=== PATIENT | female | born 1980 | race Caucasian/White ===

== ENCOUNTER 2020-08-31 15:25 | Outpatient (CLI) | payer OTHER, SELFPAY ==
--- NOTE | ~2020-08-31 | MM_ITS ---
EXAMINATION: MM screening arlene BI w antolin HISTORY: Screening TECHNIQUE: Craniocaudal and mediolateral oblique 3-D tomosynthesis images were obtained and synthetic 2-D images were generated. CAD analysis was submitted and interpreted. COMPARISON: 07/16/2019 BREAST PARENCHYMAL COMPOSITION: There are scattered areas of fibroglandular density. FINDINGS: There is no evidence of suspicious mass, calcification, or architectural distortion to sugg est malignancy in either breast. There has been no suspicious interval change. IMPRESSION: 1. No mammographic evidence of malignancy. 2. Recommend routine screening mammography in one year. BI-RADS Category 1: Negative Reviewed, dictated and finalized at location A. N GRADER
== END 2020-08-31 15:26 | disposition home or self-care (01) ==
LOC: ANHIMG 15:27
PROVIDERS: PCP Nurse Practitioner Family; Visit Provider Nurse Practitioner Family
DX: Z12.31 Encounter for screening mammogram for malignant neoplasm of breast (principal)
CPT/HCPCS: 77063; 77067

== ENCOUNTER 2021-09-27 10:14 | Outpatient (CLI) | payer OTHER, SELFPAY ==
--- NOTE | ~2021-09-27 | MM_ITS ---
EXAMINATION: MM screening arlene BI w antolin HISTORY: Screening mammogram TECHNIQUE: Craniocaudal and mediolateral oblique 3-D tomosynthesis images were obtained and synthetic 2-D images were generated. CAD analysis was submitted and interpreted. COMPARISON: 08/2020, 07/16/2019 bilateral screening mammogram examinations BREAST PARENCHYMAL COMPOSITION: There are scattered areas of fibroglandular density. FINDINGS: There is no evidence of suspicious mass, calcification, or architectural distortion to sugg est malignancy in either breast. There has been no suspicious interval change. IMPRESSION: 1. No mammographic evidence of malignancy. 2. Recommend routine screening mammography in one year. BI-RADS Category 1: Negative Reviewed, dictated and finalized at location A. O NEWS EDITOR
== END 2021-09-27 10:15 | disposition home or self-care (01) ==
PROVIDERS: PCP Family Medicine; Visit Provider Nurse Practitioner Obstetrics & Gynecology
DX: Z12.31 Encounter for screening mammogram for malignant neoplasm of breast (principal)
CPT/HCPCS: 77063; 77067

== ENCOUNTER 2021-10-11 11:46 | Outpatient (CLI) | payer OTHER, SELFPAY ==
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
--- NOTE | ~2021-10-11 | XR_ITS ---
LUMBAR SPINE INDICATION: Low back pain TECHNIQUE: 6 views lumbar spine COMPARISON: None FINDINGS: No fracture, subluxation or dislocation. No evidence for spondylolysis or spondylolisthesi s. Vertebral bodies and disk spaces are preserved. IMPRESSION: 1: No significant abnormality of the lumbar spine identified. Reviewed, dictated and finalized at location A. T OFFICER
== END 2021-10-11 11:47 | disposition home or self-care (01) ==
LOC: ANHIMG 11:51
PROVIDERS: PCP Family Medicine; Visit Provider Nurse Practitioner
DX: M47.812 Spondylosis without myelopathy or radiculopathy, cervical region (principal)
CPT/HCPCS: 72050; 72110

== ENCOUNTER 2021-11-08 14:30 | Outpatient (RCR) | payer OTHER, SELFPAY ==
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
--- NOTE | 2021-11-08 15:24 | PTOPEVAL ---
PHYSICAL THERAPY DISCHARGE REPORT 11-08-21 Refer to the clinical summary below, for her status today, compared to the initial evaluation. The goals were achieved for strength and education. Rachelle requests discharge from PT services due to personal issues, her mother is ill and feels she cannot focus on therapy at this time. She wants to do her exercises at home for awhile and if needs therapy again, she will obtain a new order to resume therapy. Thank you for referring Rachelle Hough to [facility].? Please review, sign, date and return this Discharge report EMMA. I agree with and certify that the following plan of care is medically necessary. Referring Physician Date Attending Provider: Sameera Ennis NP Document 11/08/21 14:30 VEGA (Rec: 11/08/21 15:24 VEGA [id number]) Assessment Status Discharge Subjective Information Rachelle reports: doing home Query Text:As Reported By Patient/ exercises without any problems Family , feel they are helping her get stronger; want to stop PT now and restart later if needed; her mom is ill and in ICU- very ill and on the ventilator. Wants to discharge PT; Pain Assessment Timing of Pain Assessment Timing of Pain Assessment Assessment Pain Scale Pain Scale Used Numeric (1 - 10) Self Report Pain Assessment Bilateral Back Reported Pain Level 0 Radicular Pain Location R and L low back into R toes numb Pain Frequency Chronic,Intermittent Other Pain Description some muscle soreness from new exercises; spasms in back and random stabs Lowest Pain Intensity 0 Greatest Pain Intensity 6 Pain Aggravating Factors Exercise/Activity,Walking, Weight Bearing/Standing Other Pain Aggravating Factors stand/walk 2 hours Pain Score Pain Score 0: Self Report Interventions Used Interventions Used By Clinicians Education,Exercise Pain Relief Interventions Used By Position Change Patient Other Alleviating Interventions hot shower, heating pad; discussed stretching for spasm relief Lower Extremity Range of Motion General Lower Extremity Range of Motion Gross Lower Extremity Range of Motion supine piriformis stretch with Comments hip and knee flexion > 90' R = L flexibility; Lower Extremity Muscle Strength Testing General Lower Extremity Strength Gross Lower Extremity Strength - B UE lift 20# box floor/ waist 3x with correct technique; no increase in back
== END 2021-11-09 08:22 | disposition home or self-care (01) ==
LOC: ANHPT 14:30
PROVIDERS: PCP Family Medicine; Visit Provider Nurse Practitioner
DX: M54.50 Low back pain, unspecified (principal)
CPT/HCPCS: 97110; 97161

== ENCOUNTER → 2022-02-20 16:29 | Outpatient (CLI) | payer OTHER, SELFPAY ==
--- NOTE | ~2022-02-20 | XR_ITS ---
XR cervical spine min 6V DATE: 02/20/2022 16:46 INDICATION: Bilateral neck pain TECHNIQUE: AP, open-mouth, bilateral oblique views. Flexion and extension lateral views. COMPARISON: 10/11/2021 cervical spine FINDINGS: There is straightening and slight reversal of cervical curvature. There is no instability on flexion or extension. No fracture or dislocation or locked facet or prevertebral soft tissue swelling. C1 and C2 are normal ly aligned and the odontoid process is intact. There is no bony encroachment upon the neural foramina . Cervical interspaces are well preserved. IMPRESSION: Straightening and mild reversal; otherwise negative Reviewed, dictated and finalized at location A.
== END ==
PROVIDERS: PCP Nurse Practitioner; Visit Provider Nurse Practitioner
DX: M54.2 Cervicalgia (principal)
CPT/HCPCS: 72052

== ENCOUNTER 2022-05-30 14:20 | Outpatient (CLI) | payer OTHER, SELFPAY ==
--- NOTE | ~2022-05-30 | XR_ITS ---
XR foot LT min 3V DATE: 05/30/2022 14:35 INDICATION: Left foot pain, mid metatarsal area; injury one week ago. TECHNIQUE: 4 views COMPARISON: None FINDINGS: Mild osteoarthritis at the first metatarsophalangeal joint. No fracture or dislocation, periosteal reaction or bone destruction of the left foot. IMPRESSION: No fracture is detected Reviewed, dictated and finalized at location B. IMPRESSION: No fracture is detected
== END 2022-05-30 14:21 | disposition home or self-care (01) ==
PROVIDERS: PCP Family Medicine; Visit Provider Nurse Practitioner
DX: M19.072 Primary osteoarthritis, left ankle and foot (principal)
CPT/HCPCS: 73630

== ENCOUNTER 2023-07-15 15:04 | Outpatient (CLI) | payer OTHER, SELFPAY ==
--- NOTE | ~2023-07-15 | MM_ITS ---
EXAMINATION: MM screening arlene BI w antolin HISTORY: Screening TECHNIQUE: Craniocaudal and mediolateral oblique 3-D tomosynthesis images were obtained and synthetic 2-D images were generated. CAD analysis was submitted and interpreted. COMPARISON: Comparison to multiple prior studies sequentially, with oldest reviewed study dated 07/16. BREAST PARENCHYMAL COMPOSITION: Breast composed of scattered areas of fibroglandular density FINDINGS: There is no evidence of suspicious mass, calcification, or architectural distortion to sugg est malignancy in either breast. There has been no suspicious interval change. IMPRESSION: 1. No mammographic evidence of malignancy. 2. Recommend routine screening mammography in one year. BI-RADS Category 1: Negative Reviewed, dictated and finalized at location A.
== END 2023-07-15 15:05 | disposition home or self-care (01) ==
LOC: ANHIMG 15:07
PROVIDERS: PCP Family Medicine; Visit Provider Nurse Practitioner Obstetrics & Gynecology
DX: Z12.31 Encounter for screening mammogram for malignant neoplasm of breast (principal)
CPT/HCPCS: 77063; 77067

== ENCOUNTER 2023-09-23 12:54 | Outpatient (CLI) | payer OTHER, SELFPAY ==
--- NOTE | ~2023-09-23 | CT_ITS ---
EXAMINATION: CT lumbar spine wo con DATE: 09/23/2023 13:19 INDICATION: Sciatica, unspecified side. TECHNIQUE: Computed tomography (CT) of the lumbar spine was performed without intravenous contrast. A utomated exposure control and iterative reconstruction technique were employed. The dose-length produ ct was 1229.68 mGy-cm. COMPARISON: Lumbar spine MRI 10/11/2010 FINDINGS: Bone alignment is normal. Vertebral body heights and intervertebral disc heights are normal . The following disc levels are specifically discussed: L1-L2: The disc does not extend beyond the endplate margin. There is severe bilateral facet joint ost eoarthritis. There is no neural foraminal stenosis. There is no central canal stenosis. L2-L3: The disc does not extend beyond the endplate margin. There is mild bilateral facet joint osteo arthritis. There is no neural foraminal stenosis. There is no central canal stenosis. L3-L4: The disc does not extend beyond the endplate margin. There is mild right and moderate left fac et joint osteoarthritis. There is no neural foraminal stenosis. There is no central canal stenosis. L4-L5: The disc is bulging. There is severe bilateral facet joint osteoarthritis. There is mild left neural foraminal stenosis. There is no central canal stenosis. L5-S1: The disc does not extend beyond the endplate margin. There is severe bilateral facet joint ost eoarthritis. There is no neural foraminal stenosis. There is no central canal stenosis. IMPRESSION: 1. Mild lumbar spondylosis. Reviewed, dictated and finalized at location A. UCT ENGINEERING MANAGER IMPRESSION: 1. Mild lumbar spondylosis.
== END 2023-09-23 12:55 | disposition home or self-care (01) ==
PROVIDERS: PCP Family Medicine; Visit Provider Nurse Practitioner Family
DX: G89.29 Other chronic pain (principal); M54.40 Lumbago with sciatica, unspecified side; M43.06 Spondylolysis, lumbar region
CPT/HCPCS: 72131

== ENCOUNTER 2024-06-30 12:32 | Outpatient (CLI) | payer OTHER, SELFPAY ==
--- NOTE | 2024-06-30 13:04 | ECG_ITS ---
Test Date: 2024-06-30 13:13:11 Measurements Intervals [place] Rate: 62 P: 58 SC: 132 QRS: 68 QRSD: 94 T: 70 QT: 402 QTc: 410 Interpretive Statements SINUS RHYTHM LOW QRS VOLTAGE IN PRECORDIAL LEADS CANNOT R/O SEPTAL INFARCT, AGE INDETERMINATE BASELINE ARTIFACT- I, II, III, AVR, AVL, AVF, V4-V6 ABNORMAL ECG No previous ECG available for comparison Electronically Signed On 06-30-2024 13:18:07 CDT by Jerry Durham D.O.
== END 2024-06-30 12:33 | disposition home or self-care (01) ==
LOC: ANHCARD 12:35
PROVIDERS: PCP Family Medicine; Visit Provider Family Medicine
DX: R07.9 Chest pain, unspecified (principal); R94.31 Abnormal electrocardiogram [ECG] [EKG]
CPT/HCPCS: 93005

== ENCOUNTER 2024-07-29 00:19 | Day surgery (SDC) | payer OTHER, SELFPAY ==
[2024-06-23 13:54] VITALS: BMI 36.6
--- NOTE | 2024-06-24 11:30 | PC.NURSE ---
Patient complained of having trouble during previous preps for procedure having nausea and vomiting and not able to keep prep down. Spoke with Dr. Sauceda and ciro to order Ondansetron for nausea during prep.
[2024-07-21 16:05] VITALS: BMI 36.6
--- NOTE | 2024-07-27 08:29 | SUR.PREOP ---
Notified patient that she did receive cardiac clearance. Patient should arrive on July 29 at 0600 with procedure time at 0730. Patient requesting to take an extra dose of Xanax the morning of her procedure. Patient advised to take the prescribed amount of medication from her primary doctor. Patient has started two day prep for procedure. Patient refusing to take dulcolax tablets and magnesium citrate, but states she will take a bottle and a half of miralax today and tomorrow and remain clear liquids today and tomorrow. Patient advised that if her stools are not clear the morning of the procedure we will have to cancel the procedure. Patient extremely anxious about IV stick, will attempt to schedule IV ultrasound for procedure.
[2024-07-29 06:12] VITALS: BP 142/96; PULSE 80; RESP 18; TEMP 36.2; O2SAT 98
[2024-07-29 06:37] VITALS: BMI 36.9
[2024-07-29 06:48] LABS: BEDSIDEPREGUCG Negative (Negative)
--- NOTE | 2024-07-29 06:52 | WPDANESEPPF ---
Anes - Initial Pre Proc Eval Procedure: Operation Date: 07/29/24 07:30 Proposed Procedures p Colonoscopy - Beau Thomas MD Date/Time: 07/29/24 06:52 Surgeon: Beau Thomas MD Pre Op Diagnosis: neoplasm sceening, Diverticulosis of large intesti Patient Data Age: 44 Gender: F Height: 1.68 m Weight: 103.9 kg Last Vital Signs Temp 36.2 C L 07/29/24 06:12 Pulse 80 07/29/24 06:12 Resp 18 07/29/24 06:12 BP 142/96 H 07/29/24 06:12 Pulse Ox 98 07/29/24 06:12 O2 Del Method Room Air 07/29/24 06:12 Allergies Allergy/AdvReac Type Severity Reaction Status Date / Time codeine AdvReac Severe Anxiety Verified 07/29/24 06:27 Home Medications Medication Instructions Recorded Confirmed Type ibuprofen 200 mg tablet (Advil) 200 mg PO Q6H PRN Pain 02/20/22 07/24/24 History multivitamin (Multiple Vitamins 1 tablet PO DAILY 04/13/22 07/24/24 History tablet) famotidine 20 mg tablet (Acid 20 mg PO DAILY 04/18/23 07/24/24 History Presentation Manager (famotidine)) omega 3-dzq-agu-fish oil 1,000 mg 1 cap PO DAILY 09/04/23 07/24/24 History (120 mg-180 mg) capsule (Fish Oil) phentermine 37.5 mg tablet 37.5 mg PO DAILY #30 tabs 05/20/24 07/24/24 Rx tizanidine 2 mg tablet 2 mg PO BID PRN muscle spasticity 06/11/24 07/24/24 Rx #60 tabs hydrocortisone 2.5 % topical cream 1 applic RECTAL DAILY PRN 06/15/24 07/24/24 Rx with perineal applicator hemorrhoids #30 grams (Anusol-HC) ondansetron HCl 4 mg tablet 4 mg PO Q6H PRN Nausea #4 tabs 06/24/24 07/24/24 Rx DME BP cuff pulse ox #1 ea 07/02/24 07/24/24 Rx blood pressure test kit-large #1 ea 07/02/24 07/24/24 Rx (Quick Response BP Monitor-Large Cuff kit) buspirone 10 mg tablet 20 mg PO TID #540 tabs 07/03/24 07/29/24 Rx prednisone 50 mg tablet 50 mg PO DAILY #7 tabs 07/10/24 07/29/24 Rx ascorbate calcium (vitamin C) 500 500 mg PO DAILY 07/24/24 07/29/24 History mg tablet elderberry fruit 350 mg capsule 350 mg PO DAILY 07/24/24 07/29/24 History magnesium 250 mg tablet 500 mg PO DAILY 07/24/24 07/29/24 History mecobalamin (vitamin B12) 1,000 1,000 mcg PO DAILY 07/24/24 07/29/24 History mcg chewable tablet tamsulosin 0.4 mg capsule 0.4 mg PO DAILY PRN Urinary 07/24/24 07/29/24 History Retention alprazolam 1 mg tablet (Xanax) 1 mg PO TID PRN panic attack(s) 1 07/27/24 07/29/24 Rx month #90 tabs Laboratory Tests 07/29/24 06:46 POC Urine HCG, Qual Negative (Negative) Patient hx anesthesia problems: none Family hx anesthesia problems: none Results Review: All pre-operative results and documents have been reviewed as part of the pre-operative evaluation. [facility] Past Medical History Medical History (Updated 07/29/24 @ 06:55 by Bal Ferguson MD) Bug bite without infection Chronic bilateral low back pain with sciatica Dense breast tissue on mammogram Diverticula of colon Elevated AST (SGOT) Encounter for screening colonoscopy Hemorrhoids History of kidney stones Hyperlipidemia, unspecified Migraine headache with aura Obesity Panic disorder Rash Sciatic leg pain Slow transit constipation Snoring TMJ (dislocation of temporomandibular joint) Surgical History Surgical History (Updated 07/29/24 @ 06:55 by Bal Ferguson MD) H/O colonoscopy Family History Family History Mother Carcinoma of colon Social History Social History Social History: Caffeine-soda Smoking packs per day: 1 Smoking cigarettes per day: 20.0 Years smoked: 20 Smoking pack-years: 20.00 Smoking status: Former smoker Tobacco type: cigarettes and e-cigarettes/vaping Smoking end date: 10/28/12 Alcohol intake: never Substance use: never Substance use type: does not use Lack of Transportation: No Lack of Food: Never True Current Housing: I Have Housing Concerned About Future H
[2024-07-29] MEDS: LACTATED RINGERS 1,000 ML 150 ML IV CONT (07:00)
--- NOTE | 2024-07-29 07:24 | PM.HPGS ---
History of Present Illness History of Present Illness Consent: Risks, benefits, and alternatives have been discussed and questions answered. Patient agrees to proceed with procedure. Chief complaint: family history of colon cancer Narrative: Rachelle Hough is a 44 year old female with last colonoscopy 5 years ago, mother had colon cancer Review of Systems Review of Systems: All systems reviewed & are unremarkable except as noted in HPI and below PMFSH Past Medical History Medical History (Updated 07/29/24 @ 07:25 by Beau Thomas MD) Bug bite without infection Chronic bilateral low back pain with sciatica Dense breast tissue on mammogram Diverticula of colon Elevated AST (SGOT) Encounter for screening colonoscopy Family history of colon cancer in mother Hemorrhoids History of kidney stones Hyperlipidemia, unspecified Migraine headache with aura Obesity Panic disorder Rash Sciatic leg pain Slow transit constipation Snoring TMJ (dislocation of temporomandibular joint) Surgical History Surgical History (Updated 07/29/24 @ 06:55 by Bal Ferguson MD) H/O colonoscopy Family History Family History Mother Carcinoma of colon Social History Social History Social History: Caffeine-soda Smoking packs per day: 1 Smoking cigarettes per day: 20.0 Years smoked: 20 Smoking pack-years: 20.00 Smoking status: Former smoker Tobacco type: cigarettes and e-cigarettes/vaping Smoking end date: 10/28/12 Alcohol intake: never Substance use: never Substance use type: does not use Lack of Transportation: No Lack of Food: Never True Current Housing: I Have Housing Concerned About Future Housing: No Difficulty Paying Gas/Electric Bills: No Difficulty Paying for Meds: No Currently Unemployed: No Education: Bachelor's Degree Difficulty w/ Childcare or Family Care: No Living arrangements: alone Spiritual care concerns: No Meds Home Medications and Allergies Home Medications Medication Instructions Recorded Confirmed Type ibuprofen 200 mg tablet (Advil) 200 mg PO Q6H PRN Pain 02/20/22 07/24/24 History multivitamin (Multiple Vitamins 1 tablet PO DAILY 04/13/22 07/24/24 History tablet) famotidine 20 mg tablet (Acid 20 mg PO DAILY 04/18/23 07/24/24 History Clipper Machine (famotidine)) omega 5-lkh-mdf-fish oil 1,000 mg 1 cap PO DAILY 09/04/23 07/24/24 History (120 mg-180 mg) capsule (Fish Oil) phentermine 37.5 mg tablet 37.5 mg PO DAILY #30 tabs 05/20/24 07/24/24 Rx tizanidine 2 mg tablet 2 mg PO BID PRN muscle spasticity 06/11/24 07/24/24 Rx #60 tabs hydrocortisone 2.5 % topical cream 1 applic RECTAL DAILY PRN 06/15/24 07/24/24 Rx with perineal applicator hemorrhoids #30 grams (Anusol-HC) ondansetron HCl 4 mg tablet 4 mg PO Q6H PRN Nausea #4 tabs 06/24/24 07/24/24 Rx DME BP cuff pulse ox #1 ea 07/02/24 07/24/24 Rx blood pressure test kit-large #1 ea 07/02/24 07/24/24 Rx (Quick Response BP Monitor-Large Cuff kit) buspirone 10 mg tablet 20 mg PO TID #540 tabs 07/03/24 07/29/24 Rx prednisone 50 mg tablet 50 mg PO DAILY #7 tabs 07/10/24 07/29/24 Rx ascorbate calcium (vitamin C) 500 500 mg PO DAILY 07/24/24 07/29/24 History mg tablet elderberry fruit 350 mg capsule 350 mg PO DAILY 07/24/24 07/29/24 History magnesium 250 mg tablet 500 mg PO DAILY 07/24/24 07/29/24 History mecobalamin (vitamin B12) 1,000 1,000 mcg PO DAILY 07/24/24 07/29/24 History mcg chewable tablet tamsulosin 0.4 mg capsule 0.4 mg PO DAILY PRN Urinary 07/24/24 07/29/24 History Retention alprazolam 1 mg tablet (Xanax) 1 mg PO TID PRN panic attack(s) 1 07/27/24 07/29/24 Rx month #90 tabs Allergies Allergy/AdvReac Type Severity Reaction Status Date / Time codeine AdvReac Severe Anxiety Verified 07/29/24 06:27 Vital Signs Vital Signs - 24 hr 07/29/24
[2024-07-29 07:50] VITALS: BP 125/62; PULSE 78; RESP 18; O2SAT 99
[2024-07-29 08:00] VITALS: BP 127/67; PULSE 76; RESP 16; O2SAT 99
[2024-07-29 08:10] VITALS: BP 127/85; PULSE 74; RESP 15; O2SAT 98
== END 2024-07-29 08:15 | disposition home or self-care (01) ==
PROVIDERS: Anesthesiology; PCP Nurse Practitioner Family; Referring Provider Nurse Practitioner Family; Visit Provider Internal Medicine Gastroenterology
PROC: 0DJD8ZZ Inspection of Lower Intestinal Tract, Via Natural or Artificial Opening Endoscopic (ICD-10-PCS; CPT 45378; principal; 2024-07-29 07:30)
DX: Z12.11 Encounter for screening for malignant neoplasm of colon (principal); D12.2 Benign neoplasm of ascending colon; K64.8 Other hemorrhoids; K57.30 Diverticulosis of large intestine without perforation or abscess without bleeding; E78.5 Hyperlipidemia, unspecified; F41.0 Panic disorder [episodic paroxysmal anxiety]; G89.29 Other chronic pain; M54.42 Lumbago with sciatica, left side; M54.41 Lumbago with sciatica, right side; E66.9 Obesity, unspecified; Z68.37 Body mass index [BMI] 37.0-37.9, adult; Z79.1 Long term (current) use of non-steroidal anti-inflammatories (NSAID); Z79.52 Long term (current) use of systemic steroids; Z87.891 Personal history of nicotine dependence; Z87.442 Personal history of urinary calculi; Z80.0 Family history of malignant neoplasm of digestive organs
CPT/HCPCS: 45380; 88305; J7120

== ENCOUNTER 2024-08-24 15:09 | Outpatient (CLI) | payer OTHER, SELFPAY ==
--- NOTE | ~2024-08-24 | MM_ITS ---
EXAMINATION: MM screening arlene BI w antolin HISTORY: Screening mammogram TECHNIQUE: Craniocaudal and mediolateral oblique 3-D tomosynthesis images were obtained and synthetic 2-D images were generated. CAD analysis was submitted and interpreted. COMPARISON: 07/15/2023, 09/27/2021, 08/31/2020 BREAST PARENCHYMAL COMPOSITION:Not Dense. There are scattered areas of fibroglandular density. FINDINGS: Probable developing 1 cm ovoid mass at the upper, outer left breast. Stable parenchymal valentin earance of the right breast. No suspicious microcalcifications. IMPRESSION: Probable developing 1 cm ovoid mass at the upper, outer left breast. Spot compression views and ultr asound are recommended for further evaluation. BI-RADS Category 0: Incomplete: Needs additional imaging evaluation. Reviewed, dictated and finalized at [facility]. IMPRESSION: Probable developing 1 cm ovoid mass at the upper, outer left breast. Spot comp ression views and ultrasound are recommended for further evaluation. BI-RADS Category 0: Incomplete: Needs additional imaging evaluation.
== END 2024-08-24 15:10 | disposition home or self-care (01) ==
LOC: ANHIMG 15:10
PROVIDERS: PCP Family Medicine; Visit Provider Nurse Practitioner Family
DX: Z12.31 Encounter for screening mammogram for malignant neoplasm of breast (principal); N63.21 Unspecified lump in the left breast, upper outer quadrant
CPT/HCPCS: 77063; 77067

== ENCOUNTER 2024-08-25 07:17 | Outpatient (CLI) | payer OTHER, SELFPAY ==
--- NOTE | 2024-08-25 07:26 | EST_ITS ---
Patient Info Name: Rachelle Hough Age: 44 years : 1980 Gender: Female Ht: 66 in Wt: 237 lbs BSA: 2.29 m2 HR: 65 bpm BP: 127 / 87 mmHg Exam Date: 08/25/2024 9:19 AM Exam Location: Echo Lab Patient Status: Outpatient Admit Date: 08/25/2024 Staff Ordering Physician: Jerry Monique DO Attending Provider: DR. MONIQUE Exercise Technologist: Katherine Grey [facility] Exercise Physician: Jerry Monique DO Exam Type: CA stress test treadmill Study Info A treadmill exercise stress test was performed. Summary 1. 1. Negative Marcelino exercise stress test for ischemic ST changes by ECG criteria. 2. 2. Reduced functional capacity, achieving 8.9 METs of workload. 3. 3. Hypertensive response to exercise. 4. 4. Appropriate HR response to exercise. 5. 5. Appropriate HR recovery at 1 minute post exercise. 6. 6. No imaging with stress testing. 7. 7. Patient informed of the above results. Protocol: Marcelino Stress ECG Details Stage: REST Duration (min): 6 min : 3 sec Speed (mph): 0.0 Grade (%): 0 HR (bpm): 62 SBP (mmHg): 127 DBP (mmHg): 87 METS: --- Stage: REST Duration (min): 10 min : 24 sec Speed (mph): 0.0 Grade (%): 0 HR (bpm): 76 SBP (mmHg): 127 DBP (mmHg): 87 METS: --- Stage: STAGE 1 Duration (min): 1 min : 0 sec Speed (mph): 1.7 Grade (%): 10 HR (bpm): 111 SBP (mmHg): 127 DBP (mmHg): 87 METS: --- Stage: STAGE 1 Duration (min): 2 min : 0 sec Speed (mph): 1.7 Grade (%): 10 HR (bpm): 116 SBP (mmHg): 127 DBP (mmHg): 87 METS: --- Stage: STAGE 1 Duration (min): 3 min : 0 sec Speed (mph): 1.7 Grade (%): 10 HR (bpm): 117 SBP (mmHg): 178 DBP (mmHg): 94 METS: --- Stage: STAGE 2 Duration (min): 1 min : 0 sec Speed (mph): 2.5 Grade (%): 12 HR (bpm): 133 SBP (mmHg): 178 DBP (mmHg): 94 METS: --- Stage: STAGE 2 Duration (min): 2 min : 0 sec Speed (mph): 2.5 Grade (%): 12 HR (bpm): 140 SBP (mmHg): 190 DBP (mmHg): 93 METS: --- Stage: STAGE 2 Duration (min): 3 min : 0 sec Speed (mph): 2.5 Grade (%): 12 HR (bpm): 142 SBP (mmHg): 190 DBP (mmHg): 93 METS: --- Stage: STAGE 3 Duration (min): 1 min : 0 sec Speed (mph): 3.4 Grade (%): 14 HR (bpm): 159 SBP (mmHg): 240 DBP (mmHg): 108 METS: --- Stage: STAGE 3 Duration (min): 1 min : 1 sec Speed (mph): 3.4 Grade (%): 14 HR (bpm): 159 SBP (mmHg): 240 DBP (mmHg): 108 METS: --- Stage: RECOVERY Duration (min): 0 min : 58 sec Speed (mph): 0.0 Grade (%): 0 HR (bpm): 135 SBP (mmHg): 240 DBP (mmHg): 108 METS: --- Stage: RECOVERY Duration (min): 1 min : 58 sec Speed (mph): 0.0 Grade (%): 0 HR (bpm): 112 SBP (mmHg): 240 DBP (mmHg): 108 METS: --- Stage: RECOVERY Duration (min): 2 min : 58 sec Speed (mph): 0.0 Grade (%): 0 HR (bpm): 101 SBP (mmHg): 204 DBP (mmHg): 106 METS: --- Stage: RECOVERY Duration (min): 3 min : 14 sec Speed (mph): 0.0 Grade (%): 0 HR (bpm): 102 SBP (mmHg): 204 DBP (mmHg): 106 METS: --- Rest HR: 76 bpm Peak HR: 160 bpm Rest Sys BP: 127 mmHg Peak Sys BP: 240 mmHg Max Pred HR: 174 bpm % Max Pred HR: 92 % Target HR: 148 bpm Max RPP: 38,400 bpm*mmHg Wright Score: 2 BP Response: Patient exhibited a hypertensive response with stress Termination Reason: Reached target heart rate or workload Cardiac Symptoms: Shortness of breath Max ST Seg Deviation: -1.00 mm Total Time: 7 min : 1 sec Rest Steiner BP: 87 mmHg Peak Steiner BP: 108 mmHg Angina Score: None Total METS: 8.9 Resting ECG Sinus rhythm, cannot r/o septal infarct, age indeterminate. Stress ECG No ST changes. Arrhythmias None. Report Signatures
--- NOTE | 2024-08-25 07:26 | ECHO_ITS ---
Patient Info Name: Rachelle Hough Age: 44 years : 1980 Gender: Female Ht: 66 in Wt: 237 lbs BSA: 2.29 m2 HR: 64 bpm BP: 151 / 99 mmHg Technical Quality: Fair Exam Date: 08/25/2024 8:19 AM Exam Location: Echo Lab Patient Status: Outpatient Admit Date: 08/25/2024 Staff Ordering Physician: Jerry Durham DO Customer Service Receptionist: Nadia Hay RDCS Attending Provider: Jerry Durham DO Referring Physician: Herminio FERNANDEZ; Exam Type: CA echo doppler color flow Study Info Indications R07.9 - Chest pain, unspecified Complete two-dimensional, color flow and Doppler transthoracic echocardiogram is performed. Strain analysis performed. Summary 1. Complete two-dimensional, color flow and Doppler transthoracic echocardiogram is performed. 2. Left ventricular chamber dimension is normal. 3. Left ventricular systolic function is normal, estimated at 60-65%. 4. The left ventricular diastolic function is normal. 5. E/e' 9 is minimally elevated. 6. Global longitudinal strain is normal at -18.7%. Left Ventricle E/e' 9 is minimally elevated. Global longitudinal strain is normal at -18.7%. Left ventricular chamber dimension is normal. Left ventricular systolic function is normal, estimated at 60-65%. The left ventricular diastolic function is normal. Right Ventricle Right ventricular chamber dimension is normal. Right ventricular systolic function is normal. Left Atria Left atrial chamber dimension is normal. Right Atria Right atrial chamber dimension is normal. Aortic Valve The aortic valve is probable trileaflet. There is no aortic valve stenosis. There is no aortic valve regurgitation. Pulmonic Valve There is no pulmonic regurgitation. Mitral Valve There is no mitral valve stenosis. There is no mitral valve regurgitation. Tricuspid Valve There is no tricuspid valve regurgitation. Pericardium/Pleural There is no pericardial effusion. Inferior Vena Cava Normal inferior vena cava with >50% collapse upon inspiration consistent with normal right atrial pressure, 5 mmHg. Aorta The aortic root size at the sinus of Valsalva is normal. Left Ventricular Outflow Tract Name Value Normal LVOT 2D LVOT Diameter 2.0 cm LVOT Doppler LVOT Peak Gradient 5 mmHg LVOT Mean Gradient 3 mmHg LVOT VTI 24 cm LVOT VTI/AV VTI Ratio 1.0 LVOT Stroke Volume 74 ml LVOT CO 4.9 l/min LVOT CI 2.1 l/min/m2 Pulmonic Valve Name Value Normal RVOT Doppler RVOT Peak Gradient 2 mmHg PV Doppler PV Peak Gradient 2 mmHg Mitral Valve Name Value Normal MV Doppler MV Decel Wake 399 cm/s2 MV PHT 62 ms MV Area (PHT) 3.6 cm2 4.0-5.0 MV Diastolic Function MV E Peak Velocity 85 cm/s MV A Peak Velocity 82 cm/s MV E/A 1.0 MV Decel Time 213 ms Tricuspid Valve Name Value Normal Estimated PAP/RSVP RA Pressure 5 mmHg <=5 Aorta Name Value Normal Ascending Aorta Ao Root Diameter (MM) 3.5 cm Ao Root Diam Index (MM) 1.5 cm/m2 Aortic Valve Name Value Normal AV Doppler AV Peak Velocity 119 cm/s AV Peak Gradient 6 mmHg AV Mean Gradient 3 mmHg AV VTI 25 cm AV Area (Cont Eq VTI) 3.0 cm2 >=3.0 AV Area (Cont Eq Moses) 2.9 cm2 AV Regurgitation 2D LVOT Area 3.1 cm2 Ventricles Name Value Normal LV Dimensions 2D/MM IVS Diastolic Thickness (2D) 0.8 cm 0.6-1.0 IVS Diastole Thickness (MM) 0.8 cm 0.6-0.9 LVID Diastole (2D) 4.7 cm 3.8-5.2 LVID Diastole (MM) 5.1 cm 3.8-5.2 LVIW Diastolic Thickness (2D) 0.9 cm 0.6-0.9 LVIW Diastolic Thickness (MM) 0.8 cm 0.6-0.9 LVID Systole (2D) 2.8 cm 2.2-3.5 LVID Systole (MM) 2.6 cm 2.2-3.5 LVOT Diameter 2.0 cm LV Mass (2D Cubed) 124.72 g 67.00-162.00 LV Mass Index (2D Cubed) 55 g/m2 43-95 Relative Wall Thickness (2D) 0.37 LV Mass (MM Cubed) 135.55 g 67.00-162.00 LV Mass Index (MM Cubed) 59 g/m2 43-95 Relative Wall Thickness (MM) 0.30 LV Fractional Shortening/Ejection Fraction 2D/MM LV Fractional Shortening (2D) 40 % 27-45 LV Fractional Shortening (MM) 48 % 27-45 LV EF (MM Teicholz) 79 % 54-74 LV EF (2D Teicholz) 70 % 54-74 LV Diastolic Volume (4C MOD) 63 ml LV EF (4C MOD) 58 % LV Diastolic Volume (2C MOD) 87 ml LV EF (2C MOD) 63 % LV Diastolic Volume (BP MOD) 74 ml 46-106 LV Diastolic Volume Index (BP MOD) 32 ml/m2 29-61 LV Systolic Volume (BP MOD) 29 ml 14-42 LV Systolic Volume Index (BP MOD) 13 ml/m2 8-24 LV EF (BP MOD) 61 % 54-74 LV Diastolic Length (4C) 8.3 cm LV Systolic Length (4C) 6.2 cm LV Stroke Volume (4C MOD) 37 ml Atria Name Value Normal LA Dimensions LA Dimension (MM) 3.7 cm 2.7-3.8 LA Volume (4C A-L) 62 ml LA Volume (BP A-L) 53 ml RA Dimensions RA Area (4C) 10.9 cm2 <=18.0 EchoPAC Name Value Normal AutoEF LVCO_BiP_Q (Ggzb8ZPM) 4.6 l/min LVEF_BiP_Q (Cjcu6YEQ) 67 % LVSV_BiP_Q (Mcez8IKL) 81 ml LVVED_BiP_Q (Ctxw1NCM) 122 ml LVVES_BiP_Q (Dikt1IIZ) 41 ml HR_4Ch_Q (Ihqb6MPR) 59 bpm LVCO_4Ch_Q (Gbmm0QMT) 4.1 l/min LVEF_4Ch_Q (Idvf3VOY) 64 % LVLd_4Ch_Q (Qrtx5SYQ) 8.3 cm LVLs_4Ch_Q (Wlpm2WKF) 6.8 cm LVSV_4Ch_Q (Texy3DYE) 70 ml LVVED_4Ch_Q (Qqur8KER) 109 ml LVVES_4Ch_Q (Hddk3AYW) 39 ml HR_2Ch_Q (Mzmy3WZX) 54 bpm LVCO_2Ch_Q (Ahuo4RGO) 5.0 l/min LVEF_2Ch_Q (Tnur7VRP) 68 % LVLd_2Ch_Q (Qgch1HUM) 8.1 cm LVLs_2Ch_Q (Bwks0ANI) 6.8 cm LVSV_2Ch_Q (Qtzn9QPW) 93 ml LVVED_2Ch_Q (Cunm4AAP) 135 ml LVVES_2Ch_Q (Wikx8KXX) 43 ml IGNACIA AA peak sys SL (AWMA) 10.0 % AAS peak sys SL (AWMA) 19.8 % AI peak sys SL (AWMA) 19.3 % AL peak sys SL (AWMA) 19.8 % AP peak sys SL (AWMA) 8.1 % peak sys SL (AWMA) 20.9 % AVC (AWMA) 450 ms BA peak sys SL (AWMA) 29.4 % BAS peak sys SL (AWMA) 18.5 % BI peak sys SL (AWMA) 23.2 % BL peak sys SL (AWMA) 21.9 % BP peak sys SL (AWMA) 18.3 % BS peak sys SL (AWMA) 8.6 % G peak SL(A2C) (AWMA) 21.2 % G peak SL(A4C) (AWMA) 19.4 % G peak SL(APLAX) (AWMA) 15.5 % G peak SL(Avg) (AWMA) 18.7 % MA peak sys SL (AWMA) 17.7 % MAS peak sys SL (AWMA) 14.0 % AZ peak sys SL (AWMA) 27.1 % ML peak sys SL (AWMA) 19.0 % MP peak sys SL (AWMA) 14.4 % MS peak sys SL (AWMA) 16.8 % Report Signatures
== END 2024-08-25 07:18 | disposition home or self-care (01) ==
PROVIDERS: PCP Nurse Practitioner Family; Visit Provider Internal Medicine Cardiovascular Disease
DX: R07.9 Chest pain, unspecified (principal)
CPT/HCPCS: 93017; 93306

== ENCOUNTER 2024-08-26 10:15 | Outpatient (CLI) | payer OTHER, SELFPAY ==
--- NOTE | ~2024-08-26 | MMUS_ITS ---
EXAMINATION: MM diagnostic arlene LT w antolin, US breast LT limited HISTORY: Left breast mass TECHNIQUE: Additional 3-D tomosynthesis images of the left breast were performed and synthetic 2-D im ages were generated. CAD analysis was submitted and interpreted. High resolution limited left breast ultrasound was performed. COMPARISON: 08/24/2024 BREAST PARENCHYMAL COMPOSITION:Not Dense. There are scattered areas of fibroglandular density. FINDINGS: MAMMOGRAPHIC FINDINGS: Spot compression views demonstrate a persistent probable low-density 9 mm mass at the upper, outer qu adrant of the left breast. ULTRASOUND: At the 2:00 position left breast, 8 cm from nipple, there is a 8 x 6 x 8 cm simple cyst. IMPRESSION: No evidence for malignancy. Subcentimeter simple cyst at the upper, outer left breast, as detailed ab ove. BI-RADS Category 2: Benign finding(s). Reviewed, dictated and finalized at location . IMPRESSION: No evidence for malignancy. Subcentimeter simple cyst at the upper, outer left breast, as detailed above. BI-RADS Category 2: Benign finding(s).
== END 2024-08-26 10:16 | disposition home or self-care (01) ==
LOC: ANHIMG 10:16
PROVIDERS: PCP Family Medicine; Visit Provider Nurse Practitioner Family
DX: N60.02 Solitary cyst of left breast (principal); N63.20 Unspecified lump in the left breast, unspecified quadrant
CPT/HCPCS: 76642; 77061; 77065; G0279

== ENCOUNTER 2025-08-04 14:04 | Outpatient (NON) | payer OTHER, SELFPAY | END 2025-08-04 14:05 | disposition home or self-care (01) | LOC: ANHGOSHLAB 14:04 | PROVIDERS: PCP Nurse Practitioner Family; Visit Provider Nurse Practitioner Family | DX: R31.9 Hematuria, unspecified (principal) | CPT/HCPCS: 87086 ==

== ENCOUNTER 2025-08-11 12:44 | Outpatient (CLI) | payer OTHER, SELFPAY ==
--- NOTE | ~2025-08-11 | XR_ITS ---
Abdominal radiograph(s) INDICATION: History of kidney stones COMPARISON: CT abdomen pelvis 10/17/2019 TECHNIQUE: 2 films supine AP abdomen FINDINGS: Lung bases clear. Scattered colonic gas and stool. Small bowel loops not well seen. Hepatomegaly. Prominent spleen. No abnormal abdominal calcifications. Pelvic phleboliths. No acute bony abnormality. IMPRESSION: 1. No acute abnormality identified. Reviewed, dictated and finalized at location R.
--- OUTSIDE RECORDS SUMMARY | 2025-08-11 14:30 | XMS_ITS | Clinical Summary ---
Author Organization [facility] Address [address], [address] [address] Phone Care Team Providers Care Life Science Research Assistant Name Role Phone Sameera Ennis APRN, [employer] Primary Care Provider + Allergies No known active allergies Medications atorvastatin (LIPITOR) 40 MG Tablet Take 40 mg by mouth daily. 4 8 Active LORazepam (ATIVAN) 1 MG Tablet Take 1 mg by mouth daily as needed. MAY TAKE ON DAY OF COLONOSCOPY 04-15-19 PER RABIA FERNANDEZ PRODUCTION OPERATIONS ENGINEER 0 8 Active Magnesium 250 MG Tablet Take 2 Tabs by mouth. Active Multiple Vitamins-Mineral s (WOMENS MULTIVITAMIN PO) Take 1 Tab by mouth daily. Active diphenhydrAMINE (BENADRYL) 25 MG Capsule Take 25 mg by mouth every 6 hours as needed. Active Ibuprofen 200 MG Capsule Take by mouth daily as needed. Active Naproxen Sodium (ALEVE) 220 MG Capsule Take by mouth daily as needed. Active Cholecalciferol (VITAMIN D) 2000 UNIT TabletIndication s:takes rarely Take by mouth. Indications: takes rarely Active Probiotic Product (PROBIOTIC ADVANCED PO) Take 1 Tab by mouth daily as needed. Active Active Problems No known active problems Family History Medical History Relation Name Comments Cancer Mother colon Relation Name Status Comments Father Alive Mother Alive Social History Tobacco Use Types Packs/Day Years Used Date Smoking Tobacco: Former Cigarettes 0.5 5 0 03/21/2010 - 03/21/2015 Smokeless Tobacco: Never Comments:quit 2012 Alcohol Use Standard Drinks/Week Comments Yes 0 (1 standard drink = 0.6 oz pur e alcohol) very rarely Comments Unknown Sex and Gender Information Value Date Recorded Sex Assigned at Not on file Legal Sex Female 7:46 PM CDT Gender Identity Not on file Sexual Orientation Not on file Last Filed Vital Signs Vital Sign Reading Time Taken Comments Blood Pressure 123/81 04/15/2019 8:37 AM CDT Pulse 58 04/15/2019 8:37 AM CDT Temperature 36 C (96.8 F) 04/15/2019 8:37 AM CDT Respiratory Rate 14 04/15/2019 8:37 AM CDT Oxygen Saturation 100% 04/15/2019 8:37 AM CDT Inhaled Oxygen Concentration - - Weight 104.3 kg (230 lb) 03/21/2019 1:00 PM CDT Height 170.2 cm (5' 7) 03/21/2019 1:00 PM CDT Body Mass Index 36.02 03/21/2019 1:00 PM CDT Plan of Treatment Health Maintenance Due Date Last Done Comments Hepatitis C Virus (HCV) Screening 1980 Pap Smear 1999 Cervical Cancer Screening (CCS) 2008 HPV/Cotest 2008 Cologuard 2023 Immunochemical Fecal Occult Blood 2023 Colonoscopy 04/15/2024 04/15/2019, 08/14/2018 Colorectal Cancer Screening 04/15/2024 Influenza Immunization (#1) 2025 SARS-COV-2 Immunization ( season) 2025 03/13/2021, 02/20/2021 Respiratory Syncytial Virus (RSV) Immunization (Adult) (1 - 1-dose 75+ series) 2053 Hepatitis B Immunization Completed 004, 06/12/2004, 05/12/2004 DTaP/Tdap/Td Immunization Discontinued 2021, 10/28/2012 TdaP Immunization Completed 04/11/2022, 10/28/2012 Human Papillomavirus (HPV) Immunization Aged Out No longer eligible based on patient's age to complete this topic Meningococcal Immunization (ACWY) Aged Out No longer eligible based on patient's age to complete this topic Pneumococcal Immunization Combined Aged Out No longer eligible based on patient's age to complete this topic Rotavirus Immunization Aged Out No lo nger eligible based on patient's age to complete this topic Insurance MEDICAID [employer] Care Teams Life Science Research Assistant Relationship Specialty Start Date End Date Sameera Ennis, HOOK PULLER, [employer] PCP - General Advanced Practice Nurse 03/14/22
--- OUTSIDE RECORDS SUMMARY | 2025-08-11 14:30 | XMS_ITS | Data Portability ---
Author Organization [facility] [place] Address [address] [place] [address] Care Team Providers Care Rn Appeals Name Role Phone TONIAAARON DO Primary Care Provider [phone] Assessment Encounter Date Assessment Date Assessment LastModified by Organization Details LastModified Time 08/15/2020 08/15/2020 Annual gynecological exam performed. Patient will come back in a year unless there are new symptoms. [email or web address] Not available 08/15/2020 12:00:13 03/22/2023 03/22/2023 Annual gynecological exam performed. Patient will come back in a year unless there are new symptoms. [email or web address] Not available 03/22/2023 12:06:28 09/30/2024 09/30/2024 Annual gynecological exam performed. Patient will come back in a year unless there are new symptoms. Not available 09/30/2024 11:35:54 Plan of Treatment Reminders Order Date Submit Date Provider Last Modified By Organization Details Last Modified Time Details Appointments None recorded. Lab lipid panel, serum 2022 023 [email or web address] [facility] ([facility]), [address], [place], [address], 3 15:10:19 HbA1c (hemoglobi n A1c), blood 2022 023 [facility] ([facility]), [address], [place], [address], 3 06:59:56 CMP, serum or plasma 2022 023 [facility] ([facility]), [address], [place], [address], 3 06:59:55 CBC w/ auto diff 2022 023 [facility] ([facility]), [address], [place], [address], 3 06:59:54 TSH, serum or plasma 2022 023 [facility] ([facility]), [address], [place], [address], 3 06:59:56 CMP, serum or plasma 2019 020 [facility] ([facility]), [address], [place], [address], 0 08:33:35 CBC w/ auto diff 2019 020 RICH SQUARE [facility] ([facility]), [address], [place], [address], 0 08:33:35 HbA1c (hemoglobi n A1c), blood 2019 020 [facility] ([facility]), [address], [place], [address], 0 08:33:36 lipid panel, serum 2019 020 [facility] ([facility]), [address], [place], [address], 0 08:33:34 TSH, serum or plasma 2019 020 [facility] ([facility]), [address] [facility] [address], [place], [address], 0 08:33:37 Referral None recorded. Procedures None recorded. Surgeries None recorded. Imaging MAMMO, screening, bilateral 2022 023 [facility], [address], [place], [address], 3 05:01:16 MAMMO, screening, digital, bilateral [address] [facility], [address], [place], [address], 1 11:11:34 Medication Orders None recorded. Patient TargetsNo targets recorded. Patient Instructions Encounter Date Encounter Id Patient Instructions Last Modified By Organization Details Last Modified Time 08/15/2020 [id number] [email or web address] Not available 12:23:26 Reason for Referral None Reported. Results Created Date Observation Date Name Description Value Unit Range Abnormal Flag Note LastModifiedBy Organization Detail LastModifiedTime 08/15/20 20 08/16/2020 lipid panel , serum cholesterol 215 mg/dL <200 high Not Available [facility] ([facility]) [address] [place] [address] [address], [place], [address], 08/16/2020 08:33:34 08/15/20 20 08/16/2020 lipid panel , serum triglyceride s 147 mg/dL <150 Not Available [facility] ([facility]) [address] [place] [address] [address], [place], [address], 08/16/2020 08:33:34 08/15/20 20 08/16/2020 lipid panel , serum HDL cholesterol 48 mg/dL >39 Not Available [facility] ([facility]) [address] [facility] [address], [place], [address], 08/16/2020 08:33:34 08/15/2008/16/2020 lipid panel , serum cholesterol / HDL ratio 4.48 ratio 0.00-4 .44 high Not Available [facility] ([facility]) [address] [facility] [address], [place], [address], 08/16/2020 08:33:34 08/15/2008/16/2020 lipid panel , serum non-HDL cholesterol 167 mg/dL <130 high Not Available [facility] ([facility]) [address] [facility] [address], [place], [address], 08/16/2020 08:33:34 08/15/2008/16/2020 lipid panel , serum LDL cholesterol (calculation ) 138 mg/dL <130 high LDL Nataliia stero l Level s Less than 100 mg/dL Optim al 100 to 129 mg/dL Near Optim al/ Above Optim al 130 to 159 mg/dL Borde rline High 160 to 189 mg/dL High 190 mg/dL and above Very High * Categ crispin sanchez by the 2004 ATPII I guide lines Not Available [facility] ([facility]) [address] [facility] [address], [place], [address], 08/16/2020 08:33:34 08/15/2008/16/2020 lipid panel , serum LDL/HDL ratio 2.9 ratio <3.3 ___ LDL Nataliia stero l Patie nt Histo ry ___ Test Date: 08/15 LDL Resul ts: 138 Units : mg/dL % Tinoco e: - ___ Note: Ameri can Heart Assoc iatio n recom mends using total nataliia stero l and HDL numbe rs rathe r than ratio s for patie nt class ifica tion. New guide lines from AHA/A CC recom mend again st using speci fic LDL targe ts for patie nt manag ement . Rathe r a perce ntage decre ase is the kaye ed patie nt manag ement algor ithm, betwe en 30% and 50% reduc tion. If you would like to have your patie nts Cardi ovasc ular Risk Asses sment class ifica tion (per 2013 AHA/A CC guide lines ) 10-ye ar ASCVD score , maria d e order the ASCVD Advan zarina Lipid Varun nathan (LIPC VD). Not Available [facility] ([facility]) [address] [place] [address] [address], [place], [address], 08/16/2020 08:33:34 08/15/2008/16/2020 CBC w/ auto diff WBC 6.3 K/uL 3.8-11 .5 Not Available [facility] ([facility]) [address] [place] [address] [address], [place], [address], 08/16/2020 08:33:34 08/15/2008/16/2020 CBC w/ auto diff red blood cell count (RBC) 4.44 M/mm3 3.60-5 .30 Not Available [facility] ([facility]) [address] [place] [address] Dr [address], [place], [address], 08/16/2020 08:33:34 08/15/20 20 08/16/2020 CBC w/ auto diff hemoglobin (HGB) 13.1 gm/dL 11.5-1 5.5 Not Available [facility] ([facility]) [address] [place] [address] Dr [address], [place], [address], 08/16/2020 08:33:34 08/15/2008/16/2020 CBC w/ auto diff hematocrit (HCT) 38.0 % 35.2-4 6.4 Not Available [facility] ([facility]) [address] [place] [address] [address], [place], [address], 08/16/2020 08:33:34 08/15/2008/16/2020 CBC w/ auto diff MCV 85.6 fL 79.0-9 9.0 Not Available [facility] ([facility]) [address] [place] [address] [address], [place], [address], 08/16/2020 08:33:34 08/15/2008/16/2020 CBC w/ auto diff MCH 29.5 pg 26.9-3 5.0 Not Available [facility] ([facility]) [address] [place] [address] [address], [place], [address], 08/16/2020 08:33:34 08/15/2008/16/2020 CBC w/ auto diff MCHC 34.5 g/dL 30.4-3 4.8 Not Available [facility] ([facility]) [address] [place] [address] [address], [place], [address], 08/16/2020 08:33:34 08/15/20 20 08/16/2020 CBC w/ auto diff RDW 41.3 fL 38.6-5 3.8 Not Available [facility] ([facility]) [address] [place] [address] [address], [place], [address], 08/16/2020 08:33:34 08/15/2008/16/2020 CBC w/ auto diff platelet count 302 K/cum m 137-39 7 Not Available [facility] ([facility]) [address] [place] [address] [address], [place], [address], 08/16/2020 08:33:34 08/15/2008/16/2020 CBC w/ auto diff neutrophils automated 61.5 % 41.0-7 7.0 Not Available [facility] ([facility]) [address] [place] [address] [address], [place], [address], 08/16/2020 08:33:34 08/15/2008/16/2020 CBC w/ auto diff lymphocytes automated 23.8 % 14.0-4 8.0 Not Available [facility] ([facility]) [address] [place] [address] [address], [place], [address], 08/16/2020 08:33:34 08/15/2008/16/2020 CBC w/ auto diff monocytes automated 6.9 % 4.0-13 .0 Not Available [facility] ([facility]) [address] [place] [address] [address], [place], [address], 08/16/2020 08:33:34 08/15/20 20 08/16/2020 CBC w/ auto diff eosinophils automated 6.7 % 0.0-8. 0 Not Available [facility]) [address] [place] [address] [address], [place], [address], 08/16/2020 08:33:34 08/15/20 20 08/16/2020 CBC w/ auto diff basophils automated 0.8 % 0.0-1. 5 Not Available [facility] ([facility]) [address] [place] [address] [address], [place], [address], 08/16/2020 08:33:34 08/15/20 20 08/16/2020 CBC w/ auto diff immature granulocyte automated 0.3 % 0.0-1. 0 Not Available [facility] ([facility]) [address] [facility] [address], [place], [address], 08/16/2020 08:33:34 08/15/2008/16/2020 CMP, serum or plasm a sodium 139 mEq/L 135-14 5 Not Available [facility] ([facility]) [address] [facility] [address], [place], [address], 08/16/2020 08:33:35 08/15/2008/16/2020 CMP, serum or plasm a potassium 4.2 mEq/L 3.5-5. 3 Not Available [facility] ([facility]) [facility] [facility] [address], [place], [address], 08/16/2020 08:33:35 08/15/2008/16/2020 CMP, serum or plasm a chloride 102 mEq/L 97-108 Not Available [facility] ([facility]) [address] [place] [address] [address], [place], [address], 08/16/2020 08:33:35 08/15/2008/16/2020 CMP, serum or plasm a CO2 28 mEq/L 22-32 Not Available [facility] ([facility]) [address] [place] [address] [address], [place], [address], 08/16/2020 08:33:35 08/15/20 20 08/16/2020 CMP, serum or plasm a glucose 124 mg/dL 65-99 high Not Available [facility] ([facility]) [facility] [address], [place], [address], 08/16/2020 08:33:35 08/15/20 20 08/16/2020 CMP, serum or plasm a BUN 8 mg/dL 6-20 Not Available [facility]) [address] [place] [address] [address], [place], [address], 08/16/2020 08:33:35 08/15/2008/16/2020 CMP, serum or plasm a creatinine 0.67 mg/dL 0.50-1 .00 Not Available [facility] ([facility]) [address] [place] [address] [address], [place], [address], 08/16/2020 08:33:35 08/15/20 20 08/16/2020 CMP, serum or plasm a calcium 9.1 mg/dL 8.6-10 .4 Not Available [facility]) [address] [place] [address] [address], [place], [address], 08/16/2020 08:33:35 08/15/20 20 08/16/2020 CMP, serum or plasm a protein 7.0 g/dL 6.0-8. 3 Not Available [facility]) [address] [place] [address] [address], [place], [address], 08/16/2020 08:33:35 08/15/20 20 08/16/2020 CMP, serum or plasm a albumin 4.4 g/dL 3.5-5. 3 Not Available [facility] ([facility]) [address] [place] [address] [address], [place], [address], 08/16/2020 08:33:35 08/15/20 20 08/16/2020 CMP, serum or plasm a alkaline phosphatase 98 IU/L 35-121 Not Available [facility]) [address] [place] [address] Dr [address], [place], [address], 08/16/2020 08:33:35 08/15/20 20 08/16/2020 CMP, serum or plasm a ALT (SGPT) 29 IU/L <5-47 Not Available [facility]) [address] [place] [address] Dr [address], [place], [address], 08/16/2020 08:33:35 08/15/20 20 08/16/2020 CMP, serum or plasm a AST (SGOT) 26 IU/L <5-40 Not Available [facility] [address] [place] [address] [address], [place], [address], 08/16/2020 08:33:35 08/15/20 20 08/16/2020 CMP, serum or plasm a bilirubin, total 0.4 mg/dL <0.2-1 .2 Not Available [facility]) [address] [place] [address] [address], [place], [address], 08/16/2020 08:33:35 08/15/20 20 08/16/2020 CMP, serum or plasm a A/G ratio 1.7 mg/dL 1.1-2. 5 Not Available [facility]) [address] [place] [address] [address], [place], [address], 08/16/2020 08:33:35 08/15/20 20 08/16/2020 GFR, estim ated (eGFR ), serum estimated GFR (black) 126 mL/mi n/1.7 3m2 >59 Not Available [facility]) [address] [place] [address] [address], [place], [address], 08/16/2020 08:33:36 08/15/20 20 08/16/2020 GFR, estim ated (eGFR ), serum estimated GFR (other) 108 mL/mi n/1.7 3m2 >59 GFR Categ ories in Chron ic Kidne y Disea se (CKD) GFR Categ ory GFR (mL/m in/1. 73 sq. meter s) Inter preta tion G1 90 or great er Amy l or high* G2 60-89 Mild decre ase* G3a 45-59 Mild to moder ate decre ase G3b 30-44 Moder ate to sever e decre ase G4 15-29 Sever e decre ase G5 14 or less Kidradha y failu re *In the absen ce of ambrocio y damag e, neith er GFR categ ory G1 or G2 fulfi ll the crite anand for CKD (Kidjett ey Int Suppl 2013; 3.1-1 50) The CKD-E PI calcu latio n is inten ded for use in patie nts 18 years of age and older . Decre ased calcu latio n accur acy may be seen in patie nts takin g medic ation s that affec t renal excre tion, or in those patie nts with extre mes in muscl e mass or diet. Not Available [facility] ([facility]) [address] [facility] [address], [place], [address], 08/16/2020 08:33:36 08/15/20 20 08/16/2020 HbA1c (hemo globi n A1c), blood hemoglobin A1C 5.3 % <5.7 The follo wing HbA1c range s recom reyes d by the Varun hein Diabe brian Assoc iatio n (ADA) may be used as an aid in the diagn osis of diabe brian melli tus. HA1c Sugge sted Diagn osis >=6.5 % Diabe tic 5.7% - 6.4% Pre-D iabet ic <5.7% Non-D iabet ic Not Available [facility]) [address] [facility] [address], [place], [address], 08/16/2020 08:33:36 08/15/20 20 08/16/2020 estim ated avera ge gluco se estimated average glucose 105 mg/dL [place] ge Gluco se is calcu lated using the equat ion AG = (28.7 x HgbA1 c) - 46.7 based on the guide lines alex sanchez by the ADA. Not Available [facility] ([facility]) [address], [place], [address], 08/16/2020 08:33:36 08/15/20 20 08/16/2020 TSH, serum or plasm a TSH reflex to FT4 1.89 mU/L 0.27-4 .20 Not Available [facility] ([facility]) [address], [place], [address], 08/16/2020 08:33:37 09/06/20 21 09/06/2021 CBC W/DIF F WBC 6.1 10'3/ uL 3.6-10 .2 Not Available [facility] (Lab) [address], [place], [address], 09/07/2021 03:52:34 09/06/20 21 09/06/2021 CBC W/DIF F RBC 4.50 10'6/ uL (based on docume nted legal sex) 4.10-5 .30 Not Available [facility] (Lab) [address], [place], [address], 09/07/2021 03:52:34 09/06/20 21 09/06/2021 CBC W/DIF F HGB 12.9 g/dL (based on docume nted legal sex) 11.9-1 5.8 Not Available [facility] (Lab) [address], [place], [address], 09/07/2021 03:52:34 09/06/20 21 09/06/2021 CBC W/DIF F HCT 40.3 % (based on docume nted legal sex) 37.4-4 8.3 Not Available [facility] (Lab) [address], [place], [address], 09/07/2021 03:52:34 09/06/20 21 09/06/2021 CBC W/DIF F MCV 89.0 fL 82.0-9 9.0 Not Available [facility] (Lab) [address], [place], [address], 09/07/2021 03:52:34 09/06/20 21 09/06/2021 CBC W/DIF F MCH 28.0 pg 27.0-3 3.0 Not Available [facility] (Lab) [address], [place], [address], 09/07/2021 03:52:34 09/06/20 21 09/06/2021 CBC W/DIF F MCHC 32.0 g/dL 32.0-3 6.0 Not Available [facility] (Lab) [address], [place], [address], 09/07/2021 03:52:34 09/06/20 21 09/06/2021 CBC W/DIF F RDW 14.0 % 11.0-1 5.0 Not Available [facility] (Lab) [address], [place], [address], 09/07/2021 03:52:34 09/06/20 21 09/06/2021 CBC W/DIF F plt 306 10'3/ uL 150-45 0 Not Available [facility] (Lab) [address], [place], [address], 09/07/2021 03:52:34 09/06/20 21 09/06/2021 CBC W/DIF F MPV 9.6 fL 9.8-12 .7 low Not Available [facility] (Lab) [address], [place], [address], 09/07/2021 03:52:34 09/06/20 21 09/06/2021 CBC W/DIF F NRBC's 0.00 % 0 Not Available [facility] (Lab) [address], [place], [address], 09/07/2021 03:52:34 09/06/20 21 09/06/2021 CBC W/DIF F absolute NRBCs 0.0 10'3/ uL 0 Not Available [facility] (Lab) [address], [place], [address], 09/07/2021 03:52:34 09/06/20 21 09/06/2021 CBC W/DIF F neutrophils 61.0 % 37.0-7 2.0 Not Available [facility] (Lab) [address] [facility], [place], [address], 09/07/2021 03:52:34 09/06/20 21 09/06/2021 CBC W/DIF F lymphocytes 25.0 % 16.0-4 8.0 Not Available [facility] (Lab) [address], [place], [address], 09/07/2021 03:52:34 09/06/20 21 09/06/2021 CBC W/DIF F monocytes 8.0 % 4.0-14 .0 Not Available [facility] (Lab) [address] [facility], [place], [address], 09/07/2021 03:52:34 09/06/20 21 09/06/2021 CBC W/DIF F eosinophils 5.0 % 0.0-9. 0 Not Available [facility] (Lab) [address] [facility], [place], [address], 09/07/2021 03:52:34 09/06/20 21 09/06/2021 CBC W/DIF F basophils 1.0 % 0.0-2. 0 Not Available [facility] (Lab) [address] [facility], [place], [address], 09/07/2021 03:52:34 09/06/20 21 09/06/2021 CBC W/DIF F immature granulocytes 0.0 % no define d refere nce range Not Available [facility] (Lab) [address], [place], [address], 09/07/2021 03:52:34 09/06/20 21 09/06/2021 CBC W/DIF F absolute neutrophils 3.7 10'3/ uL 1.1-6. 0 Not Available [facility] (Lab) [address] [facility], [place], [address], 09/07/2021 03:52:34 09/06/20 21 09/06/2021 CBC W/DIF F absolute lymphocytes 1.5 10'3/ uL 0.7-3. 4 Not Available [facility] (Lab) [address] [facility], [place], [address], 09/07/2021 03:52:34 09/06/20 21 09/06/2021 CBC W/DIF F absolute monocytes 0.5 10'3/ uL 0.3-1. 0 Not Available [facility] (Lab) [address] [facility], [place], [address], 09/07/2021 03:52:34 09/06/20 21 09/06/2021 CBC W/DIF F absolute eosinophils 0.3 10'3/ uL 0.0-0. 6 Not Available [facility] (Lab) [address] [facility], [place], [address], 09/07/2021 03:52:34 09/06/20 21 09/06/2021 CBC W/DIF F absolute basophils 0.1 10'3/ uL 0.0-0. 1 Not Available [facility] (Lab) [address] [facility], [place], [address], 09/07/2021 03:52:34 09/06/20 21 09/06/2021 CBC W/DIF F absolute immature granulocytes 0.00 10'3/ uL 0.00-0 .10 09/07 12:24 AM: P indic ates parti al resul ts on a panel have been relea sed. Addit ional resul ts will follo w. 09/07 12:24 AM: This resul t has been final verif ied. No addit ional or tinoco ed resul ts are expec alissa. Not Available [facility] (Lab) [address], [place], [address], 09/07/2021 03:52:34 09/06/2009/06/2021 HEMOG LOBIN A1C hemoglobin A1C 5.9 % 0-5.6 high The Ameri can Diabe brian Assoc iatio n recom mends that a prima ry goal of thera py jerry sanchez be a HBA1C of < 7% and that physi cians shoul d reeva luate the treat ment regim en in patie nts with HBA1C value s consi stent ly > 8%. <5.7% Amy l 5.7 - 6.4% Incre ased risk for diabe brian >=6.5 % Diagn ostic of diabe brian <7.0% Goal of thera py >8.0% Actio n sugge sted Not Available [facility] (Lab) [address] [facility], [place], [address], 09/07/2021 03:52:35 09/06/20 21 09/06/2021 LIPID PANEL ,AMA (LDL- CALC) total cholesterol 186 mg/dL 0-199 Not Available [facility] (Lab) [address] [facility], [place], [address], 09/07/2021 03:52:35 09/06/2009/06/2021 LIPID PANEL ,AMA (LDL- CALC) triglyceride s 179 mg/dL 0.00-1 50.00 high NCEP Refer ence Value s for Trigl yceri luis fernando: Amy l: <150 mg/dL Borde rline High: 150 - 199 mg/dL High: 200 - 499 mg/dL Very High: >/= 500 mg/dL Not Available [facility] (Lab) [address], [place], [address], 09/07/2021 03:52:35 09/06/20 21 09/06/2021 LIPID PANEL ,AMA (LDL- CALC) HDL cholesterol 52 mg/dL >40 Not Available [facility] (Lab) [address] [place], [address], 09/07/2021 03:52:35 09/06/20 21 09/06/2021 LIPID PANEL ,AMA (LDL- CALC) LDL cholesterol 98 mg/dL 0-99 Cutof f value s recom reyes d by the Jeffery nal Nataliia stero l Educa tion Progr am: KAYE ABLE: Nataliia stero l <200 mg/dL LDL <100 mg/dL BORDE RLINE : Nataliia stero l 200-2 39 mg/dL LDL 101-1 59 mg/dL HIGHE R RISK: Nataliia stero l >240 mg/dL LDL >160 mg/dL , HDL <40 mg/dL Not Available [facility] (Lab) [address], [place], [address], 09/07/2021 03:52:35 09/06/20 21 09/06/2021 LIPID PANEL ,AMA (LDL- CALC) non-HDL cholesterol 134 mg/dL no refere nce range A reaso nable goal for non-H DL nataliia stero l is one that is 30 mg/dL highe r than the LDL nataliia stero l goal. Not Available [facility] (Lab) [address] , [place], [address], 09/07/2021 03:52:35 09/06/20 21 09/06/2021 LIPID PANEL ,AMA (LDL- CALC) chol/HDL ratio 3.6 . 0.0-5. 0 Not Available [facility] (Lab) [address] [place], [address], 09/07/2021 03:52:35 09/06/20 21 09/06/2021 CMP(C OMPRE HENSI VE METAB OLIC PANEL ) sodium 138 mmol/ L 133-14 6 Not Available [facility] (Lab) [address], [place], [address], 09/07/2021 03:52:36 09/06/20 21 09/06/2021 CMP(C OMPRE HENSI VE METAB OLIC PANEL ) potassium 4.3 mmol/ L 3.5-5. 1 Not Available [facility] (Lab) [address], [place], [address], 09/07/2021 03:52:36 09/06/20 21 09/06/2021 CMP(C OMPRE HENSI VE METAB OLIC PANEL ) chloride 101 mmol/ L 98-107 Not Available [facility] (Lab) [address], [place], [address], 09/07/2021 03:52:36 09/06/20 21 09/06/2021 CMP(C OMPRE HENSI VE METAB OLIC PANEL ) carbon dioxide 28 mmol/ L 21-31 Not Available [facility] (Lab) [address], [place], [address], 09/07/2021 03:52:36 09/06/20 21 09/06/2021 CMP(C OMPRE HENSI VE METAB OLIC PANEL ) anion gap 9 mmol/ L 4-13 Not Available [facility] (Lab) [address], [place], [address], 09/07/2021 03:52:36 09/06/20 21 09/06/2021 CMP(C OMPRE HENSI VE METAB OLIC PANEL ) blood urea nitrogen 7 mg/dL 7-25 Not Available [facility] (Lab) [address], [place], [address], 09/07/2021 03:52:36 09/06/20 21 09/06/2021 CMP(C OMPRE HENSI VE METAB OLIC PANEL ) creatinine 0.77 mg/dL 0.60-1 .30 Not Available [facility] (Lab) [address], [place], [address], 09/07/2021 03:52:36 09/06/20 21 09/06/2021 CMP(C OMPRE HENSI VE METAB OLIC PANEL ) egfrcr (CKD-epi 2020) >90 mL/mi n/1.7 3_m2 >=60 Not Available [facility] (Lab) [address], [place], [address], 09/07/2021 03:52:36 09/06/20 21 09/06/2021 CMP(C OMPRE HENSI VE METAB OLIC PANEL ) calcium 9.2 mg/dL 8.3-10 .5 Not Available [facility] (Lab) [address], [place], [address], 09/07/2021 03:52:36 09/06/20 21 09/06/2021 CMP(C OMPRE HENSI VE METAB OLIC PANEL ) glucose 116 mg/dL 70-100 high Not Available [facility] (Lab) [address], [place], [address], 09/07/2021 03:52:36 09/06/20 21 09/06/2021 CMP(C OMPRE HENSI VE METAB OLIC PANEL ) protein, total 6.9 g/dL 6.4-8. 3 Not Available [facility] (Lab) [address], [place], [address], 09/07/2021 03:52:36 09/06/20 21 09/06/2021 CMP(C OMPRE HENSI VE METAB OLIC PANEL ) albumin 4.3 g/dL 3.5-5. 0 Not Available [facility] (Lab) [address], [place], [address], 09/07/2021 03:52:36 09/06/20 21 09/06/2021 CMP(C OMPRE HENSI VE METAB OLIC PANEL ) ALT 43 units /L 9-43 Not Available [facility] (Lab) [address], [place], [address], 09/07/2021 03:52:36 09/06/20 21 09/06/2021 CMP(C OMPRE HENSI VE METAB OLIC PANEL ) alkaline phosphatase 82 units /L 34-104 Not Available [facility] (Lab) [address], [place], [address], 09/07/2021 03:52:36 09/06/20 21 09/06/2021 CMP(C OMPRE HENSI VE METAB OLIC PANEL ) AST 42 units /L 13-39 high Not Available [facility] (Lab) [address], [place], [address], 09/07/2021 03:52:36 09/06/20 21 09/06/2021 CMP(C OMPRE HENSI VE METAB OLIC PANEL ) bilirubin, total 0.7 mg/dL 0.2-1. 2 Not Available [facility] (Lab) [address], [place], [address], 09/07/2021 03:52:36 09/06/20 21 09/06/2021 VITAM IN D, 25-OH (TOTA L D2/D3 ) vitamin D, 25-hydroxy, total 32.1 NG/mL 30-80 NOTE: Defic iency : <20 ng/mL Insuf ficie ncy: 20-29 ng/mL Optim um Level : 30-80 ng/mL Possi ble Toxic ity: >80 ng/mL Most patie nts with toxic ity have level s >150 ng/mL . 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 Elect raheem ovalle niall d by Viki Storey, CT on 09/14 at 7:21 AM ----- ----- ----- ----- ----- ----- ----- ----- ----- ----- ----- ----- ----- ----- ----- ----- ----- ---- HPV RESUL TS: HPV mRNA E6/E7 : No HPV mRNA Detec alissa NOTE: This high risk HPV mRNA assay detec ts fourt een high- risk HPV types (16, 18, 31, 33, 35, 39, 45, 51, 52, 56, 58, 59, 66, 68) witho ut diffe renti ation . COMME NT: Note: This speci men was revie wed by a Cytot echno logis t and/o r Patho logis t (as indic ated in this repor t) after evalu ation using the Thinp rep Imagi ng Syste m. CLINI MIGUELINA INFOR MATIO N: Menst rual Statu s: LMP (if appli cable ): Clini miguelina Histo ry/Pr eviou s Pap: Type of Neopl jacob (if appli cable ): Signi fican t Clini miguelina Findi ngs: Other Histo ry: Hormo coleman (if appli cable ): PAP EDUCA SHALINI L NOTE: The Pap Test is a scree radha test with an inher ent false negat collette rate. Liqui d-bas e sampl ing may decre ase, but will not elimi momo, false negat collette resul ts. A negat collette resul t does not precl ude the prese nce and/o r devel opmen t of disea se, since the prese nce of abnor mal cells in the sampl e depen ds on the locat ion of the lesio n and sampl ing techn ique. Darshan nued regul ar scree radha is the best metho d of cance r preve ntion . If repor alissa cytol ogic findi ng do not corre late with physi miguelina and/o r histo rical findi ngs, fur er inves tigat ion is recom reyes d, as clini patricio grayson. Not Available [facility] (Lab) [address], [place], [address], 09/14/2021 08:23:54 04/05/20 22 04/05/2022 LIPID PANEL ,AMA (LDL- CALC) total cholesterol 190 mg/dL 0-199 Not Available [facility] (Lab) [address] [place], [address], 04/06/2022 03:57:24 04/05/20 22 04/05/2022 LIPID PANEL ,AMA (LDL- CALC) triglyceride s 147 mg/dL 0.00-1 50.00 NCEP Refer ence Value s for Trigl yceri luis fernando: Amy l: <150 mg/dL Borde rline High: 150 - 199 mg/dL High: 200 - 499 mg/dL Very High: >/= 500 mg/dL Not Available [facility] (Lab) [address] [place], [address], 04/06/2022 03:57:24 04/05/20 22 04/05/2022 LIPID PANEL ,AMA (LDL- CALC) HDL cholesterol 45 mg/dL >40 Not Available [facility] (Lab) [address] [place], [address], 04/06/2022 03:57:24 04/05/20 22 04/05/2022 LIPID PANEL ,AMA (LDL- CALC) LDL cholesterol 116 mg/dL 0-99 high Cutof f value s recom reyes d by the Jeffery cannon Nataliia stero l Educa tion Progr am: KAYE ABLE: Nataliia stero l <200 mg/dL LDL <100 mg/dL BORDE RLINE : Nataliia stero l 200-2 39 mg/dL LDL 101-1 59 mg/dL HIGHE R RISK: Nataliia stero l >240 mg/dL LDL >160 mg/dL , HDL <40 mg/dL Not Available [facility] (Lab) [address], [place], [address], 04/06/2022 03:57:24 04/05/20 22 04/05/2022 LIPID PANEL ,AMA (LDL- CALC) non-HDL cholesterol 145 mg/dL no refere nce range A reaso nable goal for non-H DL nataliia stero l is one that is 30 mg/dL highe r than the LDL nataliia stero l goal. Not Available [facility] (Lab) [address], [place], [address], 04/06/2022 03:57:24 04/05/20 22 04/05/2022 LIPID PANEL ,AMA (LDL- CALC) chol/HDL ratio 4.2 . 0.0-5. 0 Not Available [facility] (Lab) [address], [place], [address], 04/06/2022 03:57:24 04/05/20 22 04/05/2022 CMP(C OMPRE HENSI VE METAB OLIC PANEL ) sodium 138 mmol/ L 133-14 6 Not Available [facility] (Lab) [address], [place], [address], 04/06/2022 03:57:25 04/05/20 22 04/05/2022 CMP(C OMPRE HENSI VE METAB OLIC PANEL ) potassium 4.3 mmol/ L 3.5-5. 1 Not Available [facility] (Lab) [address] [place], [address], 04/06/2022 03:57:25 04/05/20 22 04/05/2022 CMP(C OMPRE HENSI VE METAB OLIC PANEL ) chloride 104 mmol/ L 98-107 Not Available [facility] (Lab) [address] [place], [address], 04/06/2022 03:57:25 04/05/20 22 04/05/2022 CMP(C OMPRE HENSI VE METAB OLIC PANEL ) carbon dioxide 25 mmol/ L 21-31 Not Available [facility] (Lab) [address], [place], [address], 04/06/2022 03:57:25 04/05/20 22 04/05/2022 CMP(C OMPRE HENSI VE METAB OLIC PANEL ) anion gap 9 mmol/ L 4-13 Not Available [facility] (Lab) [address], [place], [address], 04/06/2022 03:57:25 04/05/20 22 04/05/2022 CMP(C OMPRE HENSI VE METAB OLIC PANEL ) blood urea nitrogen 11 mg/dL 7-25 Not Available [facility] (Lab) [address], [place], [address], 04/06/2022 03:57:25 04/05/20 22 04/05/2022 CMP(C OMPRE HENSI VE METAB OLIC PANEL ) creatinine 0.76 mg/dL 0.60-1 .30 Not Available [facility] (Lab) [address], [place], [address], 04/06/2022 03:57:25 04/05/20 22 04/05/2022 CMP(C OMPRE HENSI VE METAB OLIC PANEL ) egfrcr (CKD-epi 2020) >90 mL/mi n/1.7 3_m2 >=60 Not Available [facility] (Lab) [address], [place], [address], 04/06/2022 03:57:25 04/05/20 22 04/05/2022 CMP(C OMPRE HENSI VE METAB OLIC PANEL ) calcium 9.4 mg/dL 8.3-10 .5 Not Available [facility] (Lab) [address], [place], [address], 04/06/2022 03:57:25 04/05/20 22 04/05/2022 CMP(C OMPRE HENSI VE METAB OLIC PANEL ) glucose 131 mg/dL 70-100 high Not Available [facility] (Lab) [address], [place], [address], 04/06/2022 03:57:25 04/05/20 22 04/05/2022 CMP(C OMPRE HENSI VE METAB OLIC PANEL ) protein, total 6.7 g/dL 6.4-8. 3 Not Available [facility] (Lab) [address], [place], [address], 04/06/2022 03:57:25 04/05/20 22 04/05/2022 CMP(C OMPRE HENSI VE METAB OLIC PANEL ) albumin 4.0 g/dL 3.5-5. 0 Not Available [facility] (Lab) [address], [place], [address], 04/06/2022 03:57:25 04/05/20 22 04/05/2022 CMP(C OMPRE HENSI VE METAB OLIC PANEL ) ALT 49 units /L 9-43 high Not Available [facility] (Lab) [address], [place], [address], 04/06/2022 03:57:25 04/05/20 22 04/05/2022 CMP(C OMPRE HENSI VE METAB OLIC PANEL ) alkaline phosphatase 75 units /L 34-104 Not Available [facility] (Lab) [address] [place], [address], 04/06/2022 03:57:25 04/05/20 22 04/05/2022 CMP(C OMPRE HENSI VE METAB OLIC PANEL ) AST 49 units /L 13-39 high Not Available [facility] (Lab) [address] [place], [address], 04/06/2022 03:57:25 04/05/20 22 04/05/2022 CMP(C OMPRE HENSI VE METAB OLIC PANEL ) bilirubin, total 0.6 mg/dL 0.2-1. 2 Not Available [facility] (Lab) [address] [place], [address], 04/06/2022 03:57:25 04/05/20 22 04/05/2022 VITAM IN D, 25-OH (TOTA L D2/D3 ) vitamin D, 25-hydroxy, total 46.3 NG/mL 30-80 NOTE: Defic iency : <20 ng/mL Insuf ficie ncy: 20-29 ng/mL Optim um Level : 30-80 ng/mL Possi ble Toxic ity: >80 ng/mL Most patie nts with toxic ity have level s >150 ng/mL . Not Available [facility] (Lab) [address], [place], [address], 04/06/2022 03:57:25 04/05/20 22 04/05/2022 HEMOG LOBIN A1C hemoglobin A1C 6.3 % 0-5.6 high The Ameri can Diabe brian Assoc iatio n recom mends that a prima ry goal of thera py chocoul d be a HBA1C of < 7% and that physi cians shoul d reeva luate the treat ment regim en in patie nts with HBA1C value s consi stent ly > 8%. <5.7% Amy l 5.7 - 6.4% Incre ased risk for diabe brian >=6.5 % Diagn ostic of diabe brian <7.0% Goal of thera py >8.0% Actio n sugge sted Not Available [facility] (Lab) [address], [place], [address], 04/06/2022 03:57:26 03/22/20 23 03/22/2023 CBC W/DIF F WBC 5.2 10'3/ uL 3.6-10 .2 Not Available [facility] (Lab) [address], [place], [address], 03/23/2023 06:59:54 03/22/2003/22/2023 CBC W/DIF F RBC 4.26 10'6/ uL (based on docume nted legal sex) 4.10-5 .30 Not Available [facility] (Lab) [address], [place], [address], 03/23/2023 06:59:54 03/22/20 23 03/22/2023 CBC W/DIF F HGB 11.6 g/dL (based on docume nted legal sex) 11.9-1 5.8 low Not Available [facility] (Lab) [address], [place], [address], 03/23/2023 06:59:54 03/22/20 23 03/22/2023 CBC W/DIF F HCT 37.9 % (based on docume nted legal sex) 37.4-4 8.3 Not Available [facility] (Lab) [address], [place], [address], 03/23/2023 06:59:54 03/22/20 23 03/22/2023 CBC W/DIF F MCV 89.0 fL 82.0-9 9.0 Not Available [facility] (Lab) [address], [place], [address], 03/23/2023 06:59:54 03/22/20 23 03/22/2023 CBC W/DIF F MCH 27.2 pg 27.0-3 3.0 Not Available [facility] (Lab) [address], [place], [address], 03/23/2023 06:59:54 03/22/20 23 03/22/2023 CBC W/DIF F MCHC 30.6 g/dL 32.0-3 6.0 low Not Available [facility] (Lab) [address], [place], [address], 03/23/2023 06:59:54 03/22/20 23 03/22/2023 CBC W/DIF F RDW 14.8 % 11.0-1 5.0 Not Available [facility] (Lab) [address], [place], [address], 03/23/2023 06:59:54 03/22/20 23 03/22/2023 CBC W/DIF F plt 276 10'3/ uL 150-45 0 Not Available [facility] (Lab) [address], [place], [address], 03/23/2023 06:59:54 03/22/20 23 03/22/2023 CBC W/DIF F MPV 10.0 fL 9.8-12 .7 Not Available [facility] (Lab) [address], [place], [address], 03/23/2023 06:59:54 03/22/20 23 03/22/2023 CBC W/DIF F NRBC's 0.0 % 0 Not Available [facility] (Lab) [address], [place], [address], 03/23/2023 06:59:54 03/22/20 23 03/22/2023 CBC W/DIF F absolute NRBCs 0.0 10'3/ uL 0 Not Available [facility] (Lab) [address], [place], [address], 03/23/2023 06:59:54 03/22/20 23 03/22/2023 CBC W/DIF F neutrophils 52.2 % 37.0-7 2.0 Not Available [facility] (Lab) [address], [place], [address], 03/23/2023 06:59:54 03/22/20 23 03/22/2023 CBC W/DIF F lymphocytes 28.4 % 16.0-4 8.0 Not Available [facility] (Lab) [address], [place], [address], 03/23/2023 06:59:54 03/22/20 23 03/22/2023 CBC W/DIF F monocytes 6.6 % 4.0-14 .0 Not Available [facility] (Lab) [address], [place], [address], 03/23/2023 06:59:54 03/22/20 23 03/22/2023 CBC W/DIF F eosinophils 11.2 % 0.0-9. 0 high Not Available [facility] (Lab) [address], [place], [address], 03/23/2023 06:59:54 03/22/20 23 03/22/2023 CBC W/DIF F basophils 1.2 % 0.0-2. 0 Not Available [facility] (Lab) [address], [place], [address], 03/23/2023 06:59:54 03/22/20 23 03/22/2023 CBC W/DIF F immature granulocytes 0.4 % no define d refere nce range Not Available [facility] (Lab) [address], [place], [address], 03/23/2023 06:59:54 03/22/20 23 03/22/2023 CBC W/DIF F absolute neutrophils 2.7 10'3/ uL 1.1-6. 0 Not Available [facility] (Lab) [address], [place], [address], 03/23/2023 06:59:54 03/22/20 23 03/22/2023 CBC W/DIF F absolute lymphocytes 1.5 10'3/ uL 0.7-3. 4 Not Available [facility] (Lab) [address], [place], [address], 03/23/2023 06:59:54 03/22/20 23 03/22/2023 CBC W/DIF F absolute monocytes 0.3 10'3/ uL 0.3-1. 0 Not Available [facility] (Lab) [address] [place], [address], 03/23/2023 06:59:54 03/22/20 23 03/22/2023 CBC W/DIF F absolute eosinophils 0.6 10'3/ uL 0.0-0. 6 Not Available [facility] (Lab) [address], [place], [address], 03/23/2023 06:59:54 03/22/2003/22/2023 CBC W/DIF F absolute basophils 0.1 10'3/ uL 0.0-0. 1 Not Available [facility] (Lab) [address], [place], [address], 03/23/2023 06:59:54 03/22/20 23 03/22/2023 CBC W/DIF F absolute immature granulocytes 0.0 10'3/ uL 0.00-0 .10 2022 5:25 AM: P indic ates parti al resul ts on a panel have been relea sed. Addit ional resul ts will follo w. 2022 5:25 AM: This resul t has been final verif ied. No addit ional or tinoco ed resul ts are expec alissa. Not Available [facility] (Lab) [address], [place], [address], 03/23/2023 06:59:54 03/22/2003/22/2023 LIPID PANEL ,AMA (LDL- CALC) total cholesterol 169 mg/dL 0-199 Not Available [facility] (Lab) [address], [place], [address], 03/23/2023 06:59:55 03/22/2003/22/2023 LIPID PANEL ,AMA (LDL- CALC) triglyceride s 160 mg/dL 0.00-1 50.00 high NCEP Refer ence Value s for Trigl yceri luis fernando: Amy l: <150 mg/dL Borde rline High: 150 - 199 mg/dL High: 200 - 499 mg/dL Very High: >/= 500 mg/dL Not Available [facility] (Lab) [address], [place], [address], 03/23/2023 06:59:55 03/22/20 23 03/22/2023 LIPID PANEL ,AMA (LDL- CALC) HDL cholesterol 40 mg/dL >40 low Not Available [facility] (Lab) [address], [place], [address], 03/23/2023 06:59:55 03/22/2003/22/2023 LIPID PANEL ,AMA (LDL- CALC) LDL cholesterol 103 mg/dL 0-99 high Cutof f value s recom reyes d by the Natio nal Nataliia stero l Educa tion Progr am: KAYE ABLE: Nataliia stero l <200 mg/dL LDL <100 mg/dL BORDE RLINE : Nataliia stero l 200-2 39 mg/dL LDL 101-1 59 mg/dL HIGHE R RISK: Nataliia stero l >240 mg/dL LDL >160 mg/dL , HDL <40 mg/dL Not Available [facility] (Lab) [address] [place], [address], 03/23/2023 06:59:55 03/22/2003/22/2023 LIPID PANEL ,AMA (LDL- CALC) non-HDL cholesterol 129 mg/dL no refere nce range A reaso nable goal for non-H DL nataliia stero l is one that is 30 mg/dL highe r than the LDL nataliia stero l goal. Not Available [facility] (Lab) [address] [place], [address], 03/23/2023 06:59:55 03/22/2003/22/2023 LIPID PANEL ,AMA (LDL- CALC) chol/HDL ratio 4.2 . 0.0-5. 0 On February 19, 2023, [facility] labor atori shira tinoco ed the equat ion for calcu latin g estim ated low-d ensit y lipop rotei n-cho leste rol (LDL- C) from the Fried kermit equat ion to the Bharati frausto/Dylan ritter equat ion. This new equat ion is only valid for lipid panel s with trigl yceri luis fernando < 400 mg/dL . Jomar castillo demon strat ed that this new equat ion will impro ve the accur acy of LDL-C , espec ially in scena nam when LDL-C callie ntrat ions are relat ively low (< 100 mg/dL ), trigl yceri luis fernando are eleva alissa, or patie nt is non-f astin g. Refer ences : - Bharati frausto, Jj Pruett, Bar Calabrese , Marcus cordon, Dennis Felton, Dennis thomas, Thiago santillan , and Leroy Storey . 2013. Comp ariso n of a Novel Metho d vs the Fried kermit Equat ion for Estim ating Low-D ensit y Lipop rotei n Nataliia stero l Level s from the Stand jen Lipid Profi le. JOSE ALEJANDRO: The Journ al of the Ameri can Medic al Assoc iatio n 310 (19): 2060- . - Noel marin V, Shi J, Jenni marin A, Maci M, Esthela middleton R, Hamlet marin E, Berna santillan RS, [place] SR, Bharati frausto SS. Fast ing Versu s Nonfa sting and Low-D ensit y Lipop rotei n Nataliia stero l Accur acy. Circu latio n. 2017Oct 29;137 (1):1 0-19. Not Available [facility] (Lab) [address], [place], [address], 03/23/2023 06:59:55 03/22/20 23 03/22/2023 CMP(C OMPRE HENSI VE METAB OLIC PANEL ) sodium 136 mmol/ L 133-14 6 Not Available [facility] (Lab) [address], [place], [address], 03/23/2023 06:59:55 03/22/20 23 03/22/2023 CMP(C OMPRE HENSI VE METAB OLIC PANEL ) potassium 4.1 mmol/ L 3.5-5. 1 Not Available [facility] (Lab) [address], [place], [address], 03/23/2023 06:59:55 03/22/20 23 03/22/2023 CMP(C OMPRE HENSI VE METAB OLIC PANEL ) chloride 100 mmol/ L 98-107 Not Available [facility] (Lab) [address], [place], [address], 03/23/2023 06:59:55 03/22/20 23 03/22/2023 CMP(C OMPRE HENSI VE METAB OLIC PANEL ) carbon dioxide 26 mmol/ L 21-31 Not Available [facility] (Lab) [address], [place], [address], 03/23/2023 06:59:55 03/22/20 23 03/22/2023 CMP(C OMPRE HENSI VE METAB OLIC PANEL ) anion gap 10 mmol/ L 4-13 Not Available [facility] (Lab) [address], [place], [address], 03/23/2023 06:59:55 03/22/20 23 03/22/2023 CMP(C OMPRE HENSI VE METAB OLIC PANEL ) blood urea nitrogen 10 mg/dL 7-25 Not Available [facility] (Lab) [address] [facility], [place], [address], 03/23/2023 06:59:55 03/22/20 23 03/22/2023 CMP(C OMPRE HENSI VE METAB OLIC PANEL ) creatinine 0.79 mg/dL 0.60-1 .30 Not Available [facility] (Lab) [address], [place], [address], 03/23/2023 06:59:55 03/22/20 23 03/22/2023 CMP(C OMPRE HENSI VE METAB OLIC PANEL ) egfrcr (CKD-epi 2020) >90 mL/mi n/1.7 3_m2 >=60 Not Available [facility] (Lab) [address], [place], [address], 03/23/2023 06:59:55 03/22/20 23 03/22/2023 CMP(C OMPRE HENSI VE METAB OLIC PANEL ) calcium 9.0 mg/dL 8.3-10 .5 Not Available [facility] (Lab) [address], [place], [address], 03/23/2023 06:59:55 03/22/20 23 03/22/2023 CMP(C OMPRE HENSI VE METAB OLIC PANEL ) glucose 154 mg/dL 70-100 high Not Available [facility] (Lab) [address], [place], [address], 03/23/2023 06:59:55 03/22/20 23 03/22/2023 CMP(C OMPRE HENSI VE METAB OLIC PANEL ) protein, total 6.5 g/dL 6.4-8. 3 Not Available [facility] (Lab) [address] [facility], [place], [address], 03/23/2023 06:59:55 03/22/20 23 03/22/2023 CMP(C OMPRE HENSI VE METAB OLIC PANEL ) albumin 4.0 g/dL 3.5-5. 0 Not Available [facility] (Lab) [address] [facility] [address], [place], [address], 03/23/2023 06:59:55 03/22/20 23 03/22/2023 CMP(C OMPRE HENSI VE METAB OLIC PANEL ) ALT 71 units /L 9-43 high Not Available [facility] (Lab) [address] [place], [address], 03/23/2023 06:59:55 03/22/20 23 03/22/2023 CMP(C OMPRE HENSI VE METAB OLIC PANEL ) alkaline phosphatase 87 units /L 34-104 Not Available [facility] (Lab) [address] [place], [address], 03/23/2023 06:59:55 03/22/20 23 03/22/2023 CMP(C OMPRE HENSI VE METAB OLIC PANEL ) AST 76 units /L 13-39 high Not Available [facility] (Lab) [address] [place], [address], 03/23/2023 06:59:55 03/22/20 23 03/22/2023 CMP(C OMPRE HENSI VE METAB OLIC PANEL ) bilirubin, total 0.8 mg/dL 0.2-1. 2 Not Available [facility] (Lab) [address], [place], [address], 03/23/2023 06:59:55 03/22/20 23 03/22/2023 HEMOG LOBIN A1C hemoglobin A1C 7.0 % 0-5.6 high [facility] recom mends that a prima ry goal of thera py jerry d be a HBA1C of < 7% and that physi cians shoul d reeva luate the treat ment regim en in patie nts with HBA1C value s consi stent ly > 8%. <5.7% Amy l 5.7 - 6.4% Incre ased risk for diabe brian >=6.5 % Diagn ostic of diabe brian <7.0% Goal of thera py >8.0% Actio n sugge sted Not Available [facility] (Lab) [address], [place], [address], 03/23/2023 06:59:56 03/22/2003/22/2023 TSH, REFLE X FREE T4 TSH 1.29 uIU/m L 0.30-5 .33 Not Available [facility] (Lab) [address], [place], [address], 03/23/2023 06:59:56 07/15/20 23 07/15/2023 CMP(C OMPRE HENSI VE METAB OLIC PANEL ) sodium 139 mmol/ L 133-14 6 Not Available [facility] (Lab) [address], [place], [address], 07/16/2023 08:07:46 07/15/20 23 07/15/2023 CMP(C OMPRE HENSI VE METAB OLIC PANEL ) potassium 4.2 mmol/ L 3.5-5. 1 Not Available [facility] (Lab) [address], [place], [address], 07/16/2023 08:07:46 07/15/20 23 07/15/2023 CMP(C OMPRE HENSI VE METAB OLIC PANEL ) chloride 101 mmol/ L 98-107 Not Available [facility] (Lab) [address], [place], [address], 07/16/2023 08:07:46 07/15/20 23 07/15/2023 CMP(C OMPRE HENSI VE METAB OLIC PANEL ) carbon dioxide 26 mmol/ L 21-31 Not Available [facility] (Lab) [address], [place], [address], 07/16/2023 08:07:46 07/15/20 23 07/15/2023 CMP(C OMPRE HENSI VE METAB OLIC PANEL ) anion gap 12 mmol/ L 4-13 Not Available [facility] (Lab) [address], [place], [address], 07/16/2023 08:07:46 07/15/20 23 07/15/2023 CMP(C OMPRE HENSI VE METAB OLIC PANEL ) blood urea nitrogen 9 mg/dL 7-25 Not Available [facility] ([facility] [address], [place], [address], 07/16/2023 08:07:46 07/15/20 23 07/15/2023 CMP(C OMPRE HENSI VE METAB OLIC PANEL ) creatinine 0.69 mg/dL 0.60-1 .30 Not Available [facility] (Lab) [address], [place], [address], 07/16/2023 08:07:46 07/15/20 23 07/15/2023 CMP(C OMPRE HENSI VE METAB OLIC PANEL ) egfrcr (CKD-epi 2020) >90 mL/mi n/1.7 3_m2 >=60 Not Available [facility] (Lab) [address], [place], [address], 07/16/2023 08:07:46 07/15/20 23 07/15/2023 CMP(C OMPRE HENSI VE METAB OLIC PANEL ) calcium 9.0 mg/dL 8.3-10 .5 Not Available [facility] (Lab) [address], [place], [address], 07/16/2023 08:07:46 07/15/20 23 07/15/2023 CMP(C OMPRE HENSI VE METAB OLIC PANEL ) glucose 146 mg/dL 70-100 high Not Available [facility] (Lab) [address], [place], [address], 07/16/2023 08:07:46 07/15/20 23 07/15/2023 CMP(C OMPRE HENSI VE METAB OLIC PANEL ) protein, total 6.8 g/dL 6.4-8. 3 Not Available [facility] (Lab) [address], [place], [address], 07/16/2023 08:07:46 07/15/20 23 07/15/2023 CMP(C OMPRE HENSI VE METAB OLIC PANEL ) albumin 4.2 g/dL 3.5-5. 0 Not Available [facility] (Lab) [address], [place], [address], 07/16/2023 08:07:46 07/15/20 23 07/15/2023 CMP(C OMPRE HENSI VE METAB OLIC PANEL ) ALT 85 units /L 9-43 high Not Available [facility] (Lab) [address] [place], [address], 07/16/2023 08:07:46 07/15/20 23 07/15/2023 CMP(C OMPRE HENSI VE METAB OLIC PANEL ) alkaline phosphatase 95 units /L 34-104 Not Available [facility] (Lab) [address], [place], [address], 07/16/2023 08:07:46 07/15/20 23 07/15/2023 CMP(C OMPRE HENSI VE METAB OLIC PANEL ) AST 73 units /L 13-39 high Not Available [facility] (Lab) [address], [place], [address], 07/16/2023 08:07:46 07/15/20 23 07/15/2023 CMP(C OMPRE HENSI VE METAB OLIC PANEL ) bilirubin, total 0.6 mg/dL 0.2-1. 2 Not Available [facility] (Lab) [address], [place], [address], 07/16/2023 08:07:46 01/21/20 24 01/21/2024 CBC W/DIF F WBC 4.6 10'3/ uL 3.5-10 .5 Not Available [facility] (Lab) [address], [place], [address], 01/22/2024 02:30:16 01/21/20 24 01/21/2024 CBC W/DIF F RBC 4.45 10'6/ uL (based on docume nted legal sex) 3.80-5 .20 Not Available [facility] (Lab) [address], [place], [address], 01/22/2024 02:30:16 01/21/20 24 01/21/2024 CBC W/DIF F HGB 12.6 g/dL (based on docume nted legal sex) 11.6-1 5.4 Not Available [facility] (Lab) [address], [place], [address], 01/22/2024 02:30:16 01/21/20 24 01/21/2024 CBC W/DIF F HCT 38.6 % (based on docume nted legal sex) 34.0-4 5.0 Not Available [facility] (Lab) [address] [place], [address], 01/22/2024 02:30:16 03/26/20 24 01/21/2024 CBC W/DIF F MCV 86.7 fL 80.0-9 9.0 Not Available [facility] (Lab) [address], [place], [address], 01/22/2024 02:30:16 01/21/20 24 01/21/2024 CBC W/DIF F MCH 28.3 pg 27.0-3 4.0 Not Available [facility] (Lab) [address], [place], [address], 01/22/2024 02:30:16 01/21/20 24 01/21/2024 CBC W/DIF F MCHC 32.6 g/dL 32.0-3 5.5 Not Available [facility] (Lab) [address], [place], [address], 01/22/2024 02:30:16 01/21/20 24 01/21/2024 CBC W/DIF F RDW 14.0 % 11.0-1 5.0 Not Available [facility] (Lab) [address], [place], [address], 01/22/2024 02:30:16 01/21/20 24 01/21/2024 CBC W/DIF F plt 242 10'3/ uL 150-40 0 Not Available [facility] (Lab) [address], [place], [address], 01/22/2024 02:30:16 01/21/20 24 01/21/2024 CBC W/DIF F MPV 9.5 fL 8.8-12 .1 Not Available [facility] (Lab) [address], [place], [address], 01/22/2024 02:30:16 01/21/20 24 01/21/2024 CBC W/DIF F NRBC's 0.0 % 0.0 Not Available [facility] (Lab) [address], [place], [address], 01/22/2024 02:30:16 01/21/20 24 01/21/2024 CBC W/DIF F absolute NRBCs 0.0 10'3/ uL 0.0 Not Available [facility] (Lab) [address], [place], [address], 01/22/2024 02:30:16 01/21/20 24 01/21/2024 CBC W/DIF F neutrophils 54.0 % 34.0-7 3.0 Not Available [facility] (Lab) [address], [place], [address], 01/22/2024 02:30:16 01/21/20 24 01/21/2024 CBC W/DIF F lymphocytes 30.0 % 15.0-5 0.0 Not Available [facility] (Lab) [address], [place], [address], 01/22/2024 02:30:16 01/21/20 24 01/21/2024 CBC W/DIF F monocytes 7.9 % 1.0-15 .0 Not Available [facility] (Lab) [address], [place], [address], 01/22/2024 02:30:16 01/21/20 24 01/21/2024 CBC W/DIF F eosinophils 6.6 % 0.0-8. 0 Not Available [facility] (Lab) [address] [place], [address], 01/22/2024 02:30:16 01/21/20 24 01/21/2024 CBC W/DIF F basophils 1.1 % 0.0-2. 0 Not Available [facility] (Lab) [address] [place], [address], 01/22/2024 02:30:16 01/21/20 24 01/21/2024 CBC W/DIF F immature granulocytes 0.4 % no define d refere nce range Not Available [facility] (Lab) [address] [place], [address], 01/22/2024 02:30:16 01/21/20 24 01/21/2024 CBC W/DIF F absolute neutrophils 2.5 10'3/ uL 1.5-8. 0 Not Available [facility] (Lab) [address], [place], [address], 01/22/2024 02:30:16 01/21/20 24 01/21/2024 CBC W/DIF F absolute lymphocytes 1.4 10'3/ uL 1.0-4. 0 Not Available [facility] (Lab) [address], [place], [address], 01/22/2024 02:30:16 01/21/20 24 01/21/2024 CBC W/DIF F absolute monocytes 0.4 10'3/ uL 0.2-1. 0 Not Available [facility] (Lab) [address], [place], [address], 01/22/2024 02:30:16 01/21/20 24 01/21/2024 CBC W/DIF F absolute eosinophils 0.3 10'3/ uL 0.0-0. 6 Not Available [facility] (Lab) [address], [place], [address], 01/22/2024 02:30:16 01/21/20 24 01/21/2024 CBC W/DIF F absolute basophils 0.1 10'3/ uL 0.0-0. 3 Not Available [facility] (Lab) [address], [place], [address], 01/22/2024 02:30:16 01/21/20 24 01/21/2024 CBC W/DIF F absolute immature granulocytes 0.0 10'3/ uL 0.00-0 .10 2023 12:37 AM: P indic ates parti al resul ts on a panel have been relea sed. Addit ional resul ts will follo w. 2023 12:37 AM: This resul t has been final verif ied. No addit ional or tinoco ed resul ts are expec alissa. Not Available [facility] (Lab) [address], [place], [address], 01/22/2024 02:30:16 01/21/20 24 01/21/2024 LIPID PANEL ,AMA (LDL- CALC) total cholesterol 344 mg/dL 0-199 high Not Available [facility] (Lab) [address] [place], [address], 01/22/2024 02:30:17 01/21/20 24 01/21/2024 LIPID PANEL ,AMA (LDL- CALC) triglyceride s 323 mg/dL 0-150 high NCEP Refer ence Value s for Trigl yceri luis fernando: Amy l: <150 mg/dL Borde rline High: 150 - 199 mg/dL High: 200 - 499 mg/dL Very High: >/= 500 mg/dL Not Available [facility] (Lab) [address] [place], [address], 01/22/2024 02:30:17 01/21/20 24 01/21/2024 LIPID PANEL ,AMA (LDL- CALC) HDL cholesterol 48 mg/dL >40 Not Available [facility] (Lab) [address] [place], [address], 01/22/2024 02:30:17 01/21/20 24 01/21/2024 LIPID PANEL ,AMA (LDL- CALC) LDL cholesterol 241 mg/dL 0-99 high Cutof f value s recom reyes d by the Natio nal Nataliia stero l Educa tion Progr am: KAYE ABLE: Nataliia stero l <200 mg/dL LDL <100 mg/dL BORDE RLINE : Nataliia stero l 200-2 39 mg/dL LDL 101-1 59 mg/dL HIGHE R RISK: Nataliia stero l >240 mg/dL LDL >160 mg/dL , HDL <40 mg/dL Not Available [facility] (Lab) [address] [place], [address], 01/22/2024 02:30:17 01/21/20 24 01/21/2024 LIPID PANEL ,AMA (LDL- CALC) non-HDL cholesterol 296 mg/dL no refere nce range A reaso nable goal for non-H DL nataliia stero l is one that is 30 mg/dL highe r than the LDL nataliia stero l goal. Not Available [facility] (Lab) [address], [place], [address], 01/22/2024 02:30:17 01/21/20 24 01/21/2024 LIPID PANEL ,AMA (LDL- CALC) chol/HDL ratio 7.2 . 0.0-5. 0 high On February 19, 2023, [facility] labor atori shira tinoco ed the equat ion for calcu latin g estim ated low-d ensit y lipop rotei n-cho leste rol (LDL- C) from the Fried kermit equat ion to the Bharati jett/Hop kins equat ion. This new equat ion is only valid for lipid panel s with trigl yceri luis fernando < 400 mg/dL . Marceloi es have demon strat ed that this new equat ion will impro ve the accur acy of LDL-C , espec ially in scena nam when LDL-C callie ntrat ions are relat ively low (< 100 mg/dL ), trigl yceri luis fernando are eleva alissa, or patie nt is non-f astin g. Refer ences : - Bharati frausto, Jj Pruett, Bar Calabrese , [facility] amber cordon, Dennis Felton, Dennis thomas, [facility] , and Leroy Storey . 2013. Comp ariso n of a Novel Metho d vs the Fried kermit Equat ion for Estim ating Low-D ensit y Lipop rotei n Nataliia stero l Level s from the Stand jen Lipid Profi le. JOSE ALEJANDRO: The Journ al of the Ameri can Medic al Assoc iatio n 310 (19): 2060- . - Noel marin V, Shi Meyer, Jenni Wall, Maci M, Esthela middleton R, Hamlet marin E, Berna santillan RS, Storey SR, Bharati n SS. Fast ing Versu s Nonfa sting and Low-D ensit y Lipop rotei n Nataliia stero l Accur acy. Circu brandyn n. 2017Oct 29;137 (1):1 0-19. Not Available [facility] (Lab) [address], [place], [address], 01/22/2024 02:30:17 01/21/20 24 01/21/2024 CMP(C OMPRE HENSI VE METAB OLIC PANEL ) sodium 139 mmol/ L 133-14 6 Not Available [facility] (Lab) [address], [place], [address], 01/22/2024 02:30:17 01/21/20 24 01/21/2024 CMP(C OMPRE HENSI VE METAB OLIC PANEL ) potassium 4.1 mmol/ L 3.5-5. 1 Not Available [facility] (Lab) [address], [place], [address], 01/22/2024 02:30:17 01/21/20 24 01/21/2024 CMP(C OMPRE HENSI VE METAB OLIC PANEL ) chloride 100 mmol/ L 98-107 Not Available [facility] (Lab) [address] [place], [address], 01/22/2024 02:30:17 01/21/20 24 01/21/2024 CMP(C OMPRE HENSI VE METAB OLIC PANEL ) carbon dioxide 27 mmol/ L 21-31 Not Available [facility] (Lab) [address] [place], [address], 01/22/2024 02:30:17 01/21/20 24 01/21/2024 CMP(C OMPRE HENSI VE METAB OLIC PANEL ) anion gap 12 mmol/ L 4-13 Not Available [facility] (Lab) [address] [place], [address], 01/22/2024 02:30:17 01/21/20 24 01/21/2024 CMP(C OMPRE HENSI VE METAB OLIC PANEL ) blood urea nitrogen 8 mg/dL 7-25 Not Available [facility] (Lab[facility] [address], [place], [address], 01/22/2024 02:30:17 01/21/20 24 01/21/2024 CMP(C OMPRE HENSI VE METAB OLIC PANEL ) creatinine 0.66 mg/dL 0.60-1 .30 Not Available [facility] (Lab) [address], [place], [address], 01/22/2024 02:30:17 01/21/20 24 01/21/2024 CMP(C OMPRE HENSI VE METAB OLIC PANEL ) egfrcr (CKD-epi 2020) >90 mL/mi n/1.7 3_m2 >=60 Not Available [facility] (Lab) [address], [place], [address], 01/22/2024 02:30:17 01/21/20 24 01/21/2024 CMP(C OMPRE HENSI VE METAB OLIC PANEL ) calcium 9.5 mg/dL 8.3-10 .5 Not Available [facility] (Lab) [address], [place], [address], 01/22/2024 02:30:17 01/21/20 24 01/21/2024 CMP(C OMPRE HENSI VE METAB OLIC PANEL ) glucose 175 mg/dL 70-100 high Not Available [facility] (Lab) [address], [place], [address], 01/22/2024 02:30:17 01/21/20 24 01/21/2024 CMP(C OMPRE HENSI VE METAB OLIC PANEL ) protein, total 7.0 g/dL 6.4-8. 3 Not Available [facility] (Lab) [address], [place], [address], 01/22/2024 02:30:17 01/21/20 24 01/21/2024 CMP(C OMPRE HENSI VE METAB OLIC PANEL ) albumin 4.3 g/dL 3.5-5. 0 Not Available [facility] (Lab) [address], [place], [address], 01/22/2024 02:30:17 01/21/20 24 01/21/2024 CMP(C OMPRE HENSI VE METAB OLIC PANEL ) ALT 77 units /L 9-43 high Not Available [facility] (Lab) [address], [place], [address], 01/22/2024 02:30:17 01/21/20 24 01/21/2024 CMP(C OMPRE HENSI VE METAB OLIC PANEL ) alkaline phosphatase 68 units /L 34-104 Not Available [facility] (Lab) [address], [place], [address], 01/22/2024 02:30:17 01/21/20 24 01/21/2024 CMP(C OMPRE HENSI VE METAB OLIC PANEL ) AST 79 units /L 13-39 high Not Available [facility] (Lab) [address], [place], [address], 01/22/2024 02:30:17 01/21/20 24 01/21/2024 CMP(C OMPRE HENSI VE METAB OLIC PANEL ) bilirubin, total 0.5 mg/dL 0.2-1. 2 Not Available [facility] (Lab) [address] [place], [address], 01/22/2024 02:30:17 01/21/20 24 01/21/2024 TSH TSH 2.36 uIU/m L 0.30-5 .33 Not Available [facility] (Lab) [address] [place], [address], 01/22/2024 02:30:18 01/21/20 24 01/21/2024 T4 FREE T4, free 0.99 NG/dL 0.60-1 .40 This assay is susce ptibl e to inter feren ce from high level s of bioti n which may false ly eleva te resul ts. Maria D jj late with clini miguelina findi ngs. Not Available [facility] (Lab) [address], [place], [address], 01/22/2024 02:30:18 01/21/20 24 01/21/2024 HEMOG LOBIN A1C hemoglobin A1C 7.9 % 0-5.6 high The Ameri can Diabe brian Assoc iatio n recom mends that a prima ry goal of thera py shoul d be a HBA1C of < 7% and that physi cians shoul d reeva luate the treat ment regim en in patie nts with HBA1C value s consi stent ly > 8%. <5.7% Amy l 5.7 - 6.4% Incre ased risk for diabe brian >=6.5 % Diagn ostic of diabe brian <7.0% Goal of thera py >8.0% Actio n sugge sted Not Available [facility] (Lab) [address], [place], [address], 01/22/2024 02:30:19 01/21/20 24 01/21/2024 FREE T3 T3, free 3.28 pg/mL 2.00-4 .40 This assay is susce ptibl e to inter feren ce from high level s of bioti n which may false ly eleva te resul ts. Maria D jj late with clini miguelina findi ngs inclu ding TSH and FT4 resul ts. If clini patricio indic ated, Free T3 by Raleigh Contreras sis LC/MS may be perfo rmed. Not Available [facility] (Lab) [address], [place], [address], 01/22/2024 02:30:19 01/21/20 24 01/21/2024 THYRO ID ANTIB DINA PANEL thyroglobuli n antibody <1.0 IU/mL <=3.9 Not Available [facility] (Lab) [address], [place], [address], 01/22/2024 02:30:19 01/21/20 24 01/21/2024 THYRO ID ANTIB DINA PANEL thyroperoxid ase antibodies 0.5 IU/mL 0.0-9. 0 This assay was perfo rmed using Beckm an Coult er reage nts and test kits. Value s obtai lane with other assay metho ds or kits canno t be used inter tinoco eaoctavia . Not Available [facility] (Lab) [address], [place], [address], 01/22/2024 02:30:19 09/30/20 24 09/30/2024 IMAGE GUIDE D PAP AND HPV REGAR DLESS image guided Pap, HPV regardless of Pap result SEE RESULT S BELOW CASE REPOR T: Cytol ogy Gynec ologi miguelina Repor t Case: [id number] Autho corby g Provi daisy: Belem Hankins, MILO Colle cted: 09/30 1344 Order ing Locat ion: [place] [facility] Recei sara: 10/01 0300 First Kylah n: Kinga Devlin Speci men: Kylah garcia Pap - Image d, Cervi x STATE MENT OF ADEQU ACY: Satis facto ry for evalu ation Trans forma tion zone compo nent prese nt ----- ----- ----- ----- ----- ----- ----- ----- ----- ----- ----- ----- ----- ----- ----- ----- ----- ---- FINAL DIAGN OSIS: Negat collette for Intra epith mamie frausto or [facility] . Freddie sanchez by Kinga Devlin on 10/09 at 11:08 AM ----- ----- ----- ----- ----- ----- ----- ----- ----- ----- ----- ----- ----- ----- ----- ----- ----- ---- HPV RESUL TS: HPV mRNA E6/E7 : No HPV mRNA Detec alissa NOTE: This high risk HPV mRNA assay detec ts fourt een high- risk HPV types (16, 18, 31, 33, 35, 39, 45, 51, 52, 56, 58, 59, 66, 68) witho ut diffe renti ation . COMME NT: This speci men was revie wed by a Cytot echno logis t and/o r Patho logis t (as indic ated in this repor t) after evalu ation using the Thinp rep Imagi ng Syste m. CLINI MIGUELINA INFOR MATIO N: Menst rual Statu s: LMP (if appli cable ): Clini miguelina Histo ry/Pr eviou s Pap: Type of Neopl jacob (if appli cable ): Signi fican t Clini miguelina Findi ngs: Other Histo ry: Hormo coleman (if appli cable ): PAP EDUCA SHALINI L NOTE: The Pap Test is a scree radha test with an inher ent false negat collette rate. Liqui d-bas ed sampl ing may decre ase, but will not elimi momo, false negat collette resul ts. A negat collette resul t does not precl ude the prese nce and/o r devel opmen t of disea se, since the prese nce of abnor mal cells in the sampl e depen ds on the locat ion of the lesio n and sampl ing techn ique. Darshan nued regul ar scree radha is the best metho d of cance r preve ntion . If repor alissa cytol ogic findi ng do not corre late with physi miguelina and/o r histo rical findi ngs, furth er inves tigat ion is recom reyes d, as clini patricio gomez nted. Not Available [facility] (Lab) [address], [place], [address], 10/09/2024:13:51 09/29/20 21 MAMMO , scree radha, digit al, bilat eral No observ ation record ed. [facility] [address], [place], [address], 10/31/2021 09:59:55 Result Notes None recorded. Problems Name Problem SNOMED Code Status Onset Date Resolution Date Notes Provider Name and Address Organization Details Recorded Time Screenin g for malignan t neoplasm of cervix Completed 201109/05/2021 Pap Smear;Pra ctice ID: [id number] [facility] 20:04:33 Speciali zed medical examinat ion Completed 201309/05/2021 Gynecolog ical Examinati on;Record ed Elsewhere : No Locati on: [facility] So urce: EHR Chron ic: N Practic e ID: [id number] Bill able Time: 01:30:00 PM [facility] 20:04:46 Adult health examinat ion Completed 201309/05/2021 ROUTINE MEDICAL EXAM;Ty rded Elsewhere : No Locati on: [facility] So urce: EHR Chron ic: N Practic e ID: [id number] Bill able Time: 01:30:00 PM [facility] 20:04:25 Obesity [id number] Completed 201309/05/2021 Obesity;R ecorded Elsewhere : No Locati on: [facility] So urce: EHR Chron ic: N Practic e ID: [id number] Bill able Time: 01:30:00 PM [facility] 20:04:[address] Concept Completed 201609/05/2021 Encntr for frame runner exam (general) (routine) w/o abn findings; Recorded Elsewhere : No Locati on: [facility] So urce: EHR Chron ic: N Practic e ID: [id number] Bill able Time: 11:30:00 AM Juliana Yee [facility] 20:04:[address] Concept Completed 201609/05/2021 Encntr for general adult medical exam w/o abnormal findings; Recorded Elsewhere : No Locati on: [facility] So urce: EHR Chron ic: N Practic e ID: [id number] Bill able Time: 11:30:00 AM Juliana Yee [facility] 20:04:38 Body mass index 30+ - obesity [id number] Completed 201709/05/2021 Body mass index (BMI) 36.0-36.9 , adult;Rec orded Elsewhere : No Locati on: [facility] So urce: EHR Chron ic: N Practic e ID: [id number] Bill able Time: 04:30:00 PM Juliana Yee [facility] 20:04:[address] Concept Completed 201809/05/2021 Encntr for routine child health exam w/o abnormal findings; Recorded Elsewhere : No Locati on: [facility] So urce: EHR Chron ic: N Practic e ID: [id number] Bill able Time: 11:30:00 AM Juliana Yee [facility] 20:04:41 Screenin g for malignan t neoplasm of rectum Completed 201809/05/2021 Encounter for screening for malignant neoplasm of rectum;Re corded Elsewhere : No Locati on: [facility] So urce: EHR Chron ic: N Practic e ID: [id number] Bill able Time: 11:30:00 AM Juliana Yee [facility] 20:04:35 Problem Notes None recorded. Procedures Surgical History Date Name Laterality Status Provider Name and Address Organization Details Recorded Time 09/30/20 24 Date of Last Pap Smear completed Adelita Flores [facility] 09/30/2024 11:43:58 07/28/20 24 Date of Last Mammogram completed Adelita Flores [facility] 09/30/2024 11:45:44 03/24/20 19 completed Domingo Riggins [facility] 09/06/2021 12:18:53 Tonsillectomy completed Gloria Rogelio [facility] 08/15/2020 12:01:12 Imaging Results None recorded. Procedure Notes None recorded. Medical Equipment None Reported. Allergies No known drug allergies Medications Name Sig Start Date Stop Date Status Note LastModified by Organization Details LastModified Time atorvasta tin 40 mg tablet 09/30 completed Not Available Not Available Not Available tizanidin e 2 mg tablet active Not Available Not Available Not Available atorvasta tin 10 mg tablet take 1 tablet by oral route every day 09/05 completed Prescrib ed Elsewher e: Yes [facility] By: merlin delacruzuntkristina DateTime : 03/11/20 04:30:00 PM Not Available Not Available Not Available ibuprofen 800 mg tablet 03/22 completed Not Available Not Available Not Available alprazola m 1 mg tablet active Not Available Not Available Not Available hydrocodo ne 5 mg-acetam inophen 325 mg tablet active Not Available Not Available Not Available meloxicam 15 mg tablet 03/22 completed Not Available Not Available Not Available ondansetr on HCl 4 mg tablet 09/30 completed Not Available Not Available Not Available clonazepa m 1 mg tablet 09/30 completed Not Available Not Available Not Available clobetaso l 0.05 % topical cream 09/30 completed Not Available Not Available Not Available sumatript an 50 mg tablet active Not Available Not Available Not Available metronida zole 500 mg tablet 09/30 completed Not Available Not Available Not Available ciproflox acin 500 mg tablet 08/15 completed Not Available Not Available Not Available sulfameth oxazole 800 mg-trimet hoprim 160 mg tablet 09/30 completed Not Available Not Available Not Available tramadol 50 mg tablet active Not Available Not Available Not Available triamcino lone acetonide 0.1 % topical cream active Not Available Not Available Not Available meloxicam 7.5 mg tablet 03/22 completed Not Available Not Available Not Available hydrocort isone 2.5 % topical cream with perineal applicato r 09/30 completed Not Available Not Available Not Available amoxicill in 875 mg tablet 03/22 completed Not Available Not Available Not Available famotidin e 20 mg tablet Take 1 tablet every day by oral route. active Not Available Not Available No t Available lorazepam 0.5 mg tablet 09/30 completed Not Available Not Available Not Available tamsulosi n 0.4 mg capsule 08/15 completed Not Available Not Available Not Available cephalexi n 500 mg capsule 09/30 completed Not Available Not Available Not Available Advil 100 mg tablet take 2 tablet by oral route every 4 - 6 hours as needed with food 03/22 completed Prescrib ed Elsewher e: Yes [facility] By: merlin breen DateTime : 05/17/20 14 01:30:00 PM Not Available Not Available Not Available buspirone 10 mg tablet active Not Available Not Available Not Available prednison e 50 mg tablet 09/30 completed Not Available Not Available Not Available gabapenti n 300 mg capsule 03/22 completed Not Available Not Available Not Available gabapenti n 100 mg capsule 03/22 completed Not Available Not Available Not Available lorazepam 1 mg tablet 09/30 completed Not Available Not Available Not Available triamcino lone acetonide 0.1 % lotion active Not Available Not Available Not Available Vitamin D2 1,250 mcg (50,000 unit) capsule take 1 capsule by oral route every week 03/22 completed Prescrib ed Elsewher e: No Locat ion: [facility] M odify By: maranda breen DateTime : 03/05/20 17 12:21:56 PM Not Available Not Available Not Available naproxen 500 mg tablet active Not Available Not Available Not Available amoxicill in 875 mg-potass ium clavulana te 125 mg tablet 08/15 completed Not Available Not Available Not Available amoxicill in 500 mg-potass ium clavulana te 125 mg tablet 09/30 completed Not Available Not Available Not Available Benadryl 25 mg capsule take 2 capsule by oral route every 4 - 6 hours as needed 03/22 completed Prescrib ed Mary e: Yes Loca tion: [facility] M cierra By: amnegin breen DateTime : 05/17/20 14 01:30:00 PM Not Available Not Available Not Available magnesium active Not Available Not Nohemi ilable Not Available Benadryl 09/05 completed Not Available Not Available Not Available Advil 03/22 completed Not Available Not Available Not Available Vitamin D 09/05 completed Not Available Not Available Not Available Ativan 03/22 completed Not Available Not Available Not Available Probiotic active Not Available Not Nohemi ilable Not Available Vitals Date Recorded Body height Body mass index (BMI) Body weight Systolic And Diastolic Provider Name and Address Organization Details Last Updated DateTime 03/22/2023 167.64 cm 42.7 kg/m2 089863.54 g 132/90 mm[Hg] Lashonda Ramos [facility] 03/22/2023 12:06:48 Date Recorded Body height Body mass index (BMI) Body weight Systolic And Diastolic Provider Name and Address Organization Details Last Updated DateTime 08/15/2020 167.64 cm 37.3 kg/m2 190454.84 g 138/86 mm[Hg] Gloria Mercado [facility] 08/15/2020 12:07:09 Date Recorded Systolic And Diastolic Provider Name and Address Organization Details Last Updated DateTime 09/06/2021 132/80 mm[Hg] Anne Quintero, [facility] [address], [place], [address], [facility] 09/06/2021 12:46:17 Date Recorded Body weight Body mass index (BMI) Body height Provider Name and Address Organization Details Last Updated DateTime 09/06/2021 476966.72 g 39.7 kg/m2 167.64 cm Domingo Riggins [facility] 09/06/2021 12:18:25 Date Recorded Body height Body mass index (BMI) Body weight Systolic And Diastolic Provider Name and Address Organization Details Last Updated DateTime 09/30/2024 167.64 cm 39.4 kg/m2 142493.54 g 138/83 mm[Hg] Adelitamarysol Flores [facility] 09/30/2024 11:39:36 Social History Question Answer Notes LastModified by Organizat ion Details LastModified Time Tobacco Smoking Status Never Smoker Lashonda Huertadobson, [facility] 03/22/2023 12:08:07 Do You Have An Advance Directive? No Information n ot available 09/06/2021 How Many Years Have You Consumed Alcohol? 15 Information not available 09/06/2021 Are You Blind Or Do You Have Difficulty Seeing? No Information n ot available 09/05/2021 What Is Your Level Of Caffeine Consumption? Moderate Information not available 09/06/2021 In The 14 Days Before Symptom Onset, Have You Had Close Contact With A Laboratory-confirm ed COVID-19 While That Case Was Ill? No Information n ot available 09/06/2021 In The 14 Days Before Symptom Onset, Have You Had Close Contact With A Person Who Is Under Investigation For COVID-19 While That Person Was Ill? No Information not available 09/06/2021 Have You Been To An Area Known To Be High Risk For COVID-19? No Information not available 09/06/2021 Are You Deaf Or Do You Have Serious Difficulty Hearing? No Information not available 09/05/2021 What Type Of Diet Are You Following? REGULAR Information n ot available 09/05/2021 What Is The Highest Grade Or Level Of School You Have Completed Or The Highest Degree You Have Received? [id number] Information not available 09/06/2021 Are There Any Guns Present In Your Home? No Information not available 09/06/2021 Do You Use Protection During Sex? Always Information not available 09/06/2021 Do You Use Your Seat Belt Or Car Seat Routinely? Yes Information not available 09/05/2021 Do You Have Smoke And Carbon Monoxide Detectors In Your Home? Yes Information not available 09/05/2021 How Much Tobacco Do You Smoke? No Information not available 09/06/2021 Do You Use Sunscreen Routinely? No Information not available 09/06/2021 Have You Used IV Drugs? No Information not available 09/06/2021 Do You Have Difficulty Walking Or Climbing Stairs? No Information not available 03/22/2023 Sex: Unknown Functional Status Question Answer Note LastModified by Head Held Highizat ion Details LastModified Time Do you use any illicit or recreational drugs? No Information not available 09/05/2021 What is your level of alcohol consumption? None Information not available 09/30/2024 Are you able to walk independently without assistance or assistive devices? YESWOREST Information not available 09/05/2021 Are you able to care for yourself independently? Yes Information not available 03/22/2023 What is your occupation? not employed Information not available 09/06/2021 Do you have difficulty dressing, bathing, grooming, or toileting? No Information not available 03/22/2023 What is your exercise level? None Information not available 09/30/2024 Mental Status Question Answer Note LastModified by Organization D etails LastModified Time Do you feel stressed (tense, restless, nervous, or anxious, or unable to sleep at night)? [id number] Information not available 09/05/2021 Family History Relationship Description Onset Age of this Age Resolved Age Notes LastModified by Organization Details LastModified Time Mother Carcinoma in situ of colon [email or web address] Not available 2019 12:01:01 Medical History Condition Response Anxiety Disorder Y Other Y Depression/ depression Y High Cholesterol Y Acid Reflux (GERD) Y Headaches Y Kidney or Bladder Problems Y Hypertension Y GI Problems Y Gynecological History Statement/Question Response Date of Last Mammogram 07/28/2024 Flow Heavy Date of LMP 09/12/2024 On BCP's at Conception? N N Was last menstrual period normal Y STIs/STDs N HPV Vaccine N Duration of Flow (days) 7 Current Control Method Abstinence Are cycles usually normal Y Frequency of Cycle (Q days) 30 Sexually Active? N Menses Monthly Y Age of first menstrual cycle 8 Date of Last Pap Smear 09/30/2024 Sexual Problems? N Desired Control Method Abstinence LMP Approximate 03/24/2019 N Obstetrics History GPAL:G 0 P 0 0 0 0 Past Encounters Encounter ID Performer Location Encounter Start Date Encounter Closed Date Diagnosis/Indication Diagnosis SNOMED-CT Code Diagnosis ICD10 Code Diagnosis IMO Codes Diagnosis Note [id number] Anne Quintero [facility] [address] [address] 08/15/2020 11:48:08 08/15/2020 13:49:58 Gynecologic examination 17065263 Z01.419 Suggested Calcium with Vitamin D 1200-1500m g daily. Patient advised to get an annual flu shot in the fall and she could obtain at [facility] or [facility] clinic. Also to obtain TDap vaccinatio n if you have not had one in the last 10 years. Recommend yearly mammograms . Encouraged monthly self breast exams. Encourage safe sexual practices, to use condoms and limit partners if not already in a monogamous relationsh ip. Engage in daily exercise of low impact aerobic exercise 45-60 minutes 4-5 times weekly. Avoid tobacco and illicit drugs as well as using moderation with alcohol intake less than 1-2 8 oz beverages daily. This lifestyle behavior pattern will lead to less health conditions and longer life span. If BMI greater than 25 weight watchers or dietary consult advised. All questions have been answered. Patient appears to understand informatio n, but if you have any questions please call or respond to this email. Normal pap/hpv Hx last pap/hpv 2018 wnl Opts to defer pap/hpv this year per asccp unlessothe rwise indicated. Not currently SA for almost a year or more. Mammo given Labs ordered. No issues or concerns this year. Adult heal th examination 173584638 Z00.00 Needs Labs sent to PCP when completed. [id number] Anne Quintero [facility] [address] [address] 09/06/2021 11:50:14 09/06/2021 13:06:49 Gynecologic examination [id number] Z01.419 Suggested Calcium with Vitamin D 1200-1500m g daily. Patient advised to get an annual flu shot in the fall and she could obtain at [facility] or [facility] care clinic. Also to obtain TDap vaccinatio n if you have not had one in the last 10 years. Recommend yearly mammograms . Encouraged monthly self breast exams. Encourage safe sexual practices, to use condoms and limit partners if not already in a monogamous relationsh ip. Engage in daily exercise of low impact aerobic exercise 45-60 minutes 4-5 times weekly. Avoid tobacco and illicit drugs as well as using moderation with alcohol intake less than 1-2 8 oz beverages daily. This lifestyle behavior pattern will lead to less health conditions and longer life span. If BMI greater than 25 weight watchers or dietary consult advised. All questions have been answered. Patient appears to understand informatio n, but if you have any questions please call or respond to this email. Normal pap/hpv Hx last pap/hpv 2018 wnl Opts to pursue pap/hpv this year.Optio n pap/hpv screen q3-5yrs per asccp unless otherwise indicated. Not currently SA for almost a year or more.Decli lane std screenMamm o given Labs ordered by PCP. No issues or concerns this year. Screening mammography 24 102461 Z12.31 [id number] Anne Quintero [facility] [address] [address] 03/22/2023 11:54:22 03/22/2023 12:29:13 Gynecologic examination [id number] Z01.419 Z11.51 Suggested Calcium with Vitamin D 1200-1500m g daily. Patient advised to get an annual flu shot in the fall and she could obtain at [facility] or [facility] clinic. Also to obtain TDap vaccinatio n if you have not had one in the last 10 years. Recommend yearly mammograms . Encouraged monthly self breast exams. Encourage safe sexual practices, to use condoms and limit partners if not already in a monogamous relationsh ip. Engage in daily exercise of low impact aerobic exercise 45-60 minutes 4-5 times weekly. Avoid tobacco and illicit drugs as well as using moderation with alcohol intake less than 1-2 8 oz beverages daily. This lifestyle behavior pattern will lead to less health conditions and longer life span. If BMI greater than 25 weight watchers or dietary consult advised. All questions have been answered. Patient appears to understand informatio n, but if you have any questions please call or respond to this email. Pap/hpv due 2023 STD Screen declined Genetic Screen discussed Colon Screen PCP Dexa Screen na Routine Labs ordered-wi ll fax to PCPMammo ordered Screening mammography 24 [id number] Z12.31 Adult heal th examination 259445756 Z00.00 Needs Labs sent to PCP when completed. [id number] RICHY Garcia [facility] [address] [address] 09/30/2024 11:19:58 09/30/2024 13:31:25 Gynecologic examination [id number] Z01.419 WWEBC - declinedPa p - updatedSTI screen - declinedMa mmogram - UTDColon cancer screening - UTDRoutine labs - UTD/PCPRTC in 1 yr or sooner if needed Suggested Calcium with Vitamin D daily. Patient advised to get an annual flu shot in the fall and she could obtain at local pharmacy. Also to obtain TDap vaccinatio n if you have not had one in the last 10 years. Recommend yearly mammograms . Encouraged monthly self breast exams. Encourage safe sexual practices, to use condoms and limit partners if not already in a monogamous relationsh ip. Engage in regular exercise. Avoid tobacco and illicit drugs. This lifestyle behavior pattern will lead to less health conditions and longer life span. If BMI greater than 25 dietary consult advised. All questions have been answered. Health Concerns Section Related Observation LastModified by Organization Detai ls LastModified Time None Recorded Concern Status LastModified by Organization Details LastModified Time None Recorded Advance Directives Directive N: Payers Insurance Date Sequence Insurance Name Policy Number Policy Zepeda Covered Member ID Zepeda Member ID Guarantor Name 09/30/2024 1 [facility] PRIOR TO 04/27/2021 (MEDICAID REPLACEMENT - HMO) Rachelle Hough [id number] Rachelle Hough 10/04/2024 1 [facility] ON OR AFTER 04/27/21 (MEDICAID REPLACEMENT - HMO) Rachelle Hough [id number] Rachelle Hough Notes Date Note Type Note Provider Name and Address Organization Details Recorded Time 0 text/html Annual GYNReported by PatientHistoryFor history, patient reportsno gynecologic complaints.Genitourinary symptomsFor menstrual cycle, patient reportsnormal menses. For urinary symptoms, patient reportsno hematuriaandno incontinence. For vulva, patient reportsno genital lesion. For vagina, patient reportsnormal vaginal discharge.Breast symptomsFor breast, patient reportsno breast pain,no breast lump, andno nipple discharge.Endocrine symptomsFor sexual complaints, patient reportsno sexual complaints,no pain during intercourse, andnormal libido. For menopausal symptoms, patient reportsno menopausal symptomsandnormal vaginal lubrication.Psychological symptomsFor psychological symptoms, patient reportsno depression,no anxiety, andno pmdd.Preventative measuresFor preventive measures, patient reportsencourage self breast examination,encourage regular exercise,encourage no tobacco use, andencourage regular mammograms starting age 40. Anne Quintero [facility] [address], [place], [address], [facility] 08/15/2020 12:54:23 1 text/html Annual GYNReported by PatientHistoryFor history, patient reportsno gynecologic complaints.Genitourinary symptomsFor menstrual cycle, patient reportsnormal menses. For urinary symptoms, patient reportsno hematuriaandno incontinence. For vulva, patient reportsno genital lesion. For vagina, patient reportsnormal vaginal discharge.Breast symptomsFor breast, patient reportsno breast pain,no breast lump, andno nipple discharge.ContraceptionFo r current contraception, patient reportscondoms.Endocrine symptomsFor sexual complaints, patient reportsno sexual complaints,no pain during intercourse, andnormal libido. For menopausal symptoms, patient reportsno menopausal symptomsandnormal vaginal lubrication.Psychological symptomsFor psychological symptoms, patient reportsno depression,no anxiety, andno pmdd.Preventative measuresFor preventive measures, patient reportsencourage self breast examination,encourage regular exercise,encourage no tobacco use,encourage regular mammograms starting age 40,needs to schedule mammogram, andup to date on colonoscopy screening. RICHY Armenta- [address], [place], [address], , [facility] 09/06/2021 12:47:40 3 text/html Annual GYNReported by PatientHistoryFor history, patient reportsno gynecologic complaints.Genitourinary symptomsFor menstrual cycle, patient reportsnormal menses. For urinary symptoms, patient reportsno hematuriaandno incontinence. For vulva, patient reportsno genital lesion. For vagina, patient reportsnormal vaginal discharge.Breast symptomsFor breast, patient reportsno breast pain,no breast lump, andno nipple discharge.Endocrine symptomsFor sexual complaints, patient reportsno sexual complaints,no pain during intercourse, andnormal libido. For menopausal symptoms, patient reportsno menopausal symptomsandnormal vaginal lubrication.Psychological symptomsFor psychological symptoms, patient reportsno depression,no anxiety, andno pmdd.Preventative measuresFor preventive measures, patient reportsencourage self breast examination,encourage regular exercise,encourage no tobacco use,encourage regular mammograms starting age 40, andneeds to schedule mammogram. RICHY Armenta- [address], [place], [address], , [facility] 03/22/2023 12:27:56 4 text/html Annual GYNReported by PatientGenitourinary symptomsFor menstrual cycle, patient reportsnormal menses. For urinary symptoms, patient reportsno hematuriaandno incontinence. For vulva, patient reportsno genital lesion. For vagina, patient reportsnormal vaginal discharge.Breast symptomsFor breast, patient reportsno breast pain,no breast lump, andno nipple discharge.ContraceptionFo r current contraception, (abstinence).Endocrine symptomsFor sexual complaints, patient reportsno sexual complaints,no pain during intercourse, andnormal libido. For menopausal symptoms, patient reportsno menopausal symptomsandnormal vaginal lubrication.Psychological symptomsFor psychological symptoms, patient reportsno depression,no anxiety, andno pmdd.Preventative measuresFor preventive measures, patient reportsencourage self breast examination,encourage regular exercise,encourage no tobacco use, andencourage regular mammograms starting age 40.44yo wwe G0not currently SAlast pap 2020 - normal RICHY Garcia [address], [place], [address], [facility] 09/30/2024 13:28:59 OBGyn Episode No OBEpisode recorded.
--- OUTSIDE RECORDS SUMMARY | 2025-08-11 14:30 | XMS_ITS | Clinical Summary ---
Author Organization [facility] Address [address] [place] [address] Care Team Providers Care Computer Network Specialist Name Role Phone Pooja Romeo NP Primary Care Provider + Allergies No known active allergies Medications naproxen (NAPROSYN) 500 mg tablet Take 1 tablet (500 mg total) by mouth 2 (two) times a day with meals 30 tablet 2 Active Additional Information Patient not taking.Reported on 06/07/2024 lidocaine (LIDODERM) 5 % Place 1-3 patches on the skin daily Remove & discard patch within 12 hours or as directed by MD. 30 patch 2 Active Additional Information Patient not taking.Reported on 06/07/2024 cyclobenzaprine (FLEXERIL) 10 mg tablet Take 1 tablet (10 mg total) by mouth 2 (two) times a day as needed for muscle spasms 20 tablet 2 Active Additional Information Patient not taking.Reported on 06/07/2024 clobetasoL (TEMOVATE) 0.05 % creamIndications :Dermatitis Apply topically 2 (two) times a day 30 g 4 Active Additional Information Patient not taking.Reported on 06/14/2024 busPIRone (BUSPAR) 10 mg tablet Active tiZANidine (ZANAFLEX) 2 mg tablet Active ibuprofen (AdviL) 200 mg tab/cap Advil Active calcium carb,gluc-mag gluc,ox 500 mg calcium- 250 mg tablet Take 2 tablets by mouth Active triamcinolone (KENALOG) 0.1 % creamIndications :Dermatitis Apply topically 3 (three) times a day for 10 days 80 g 1 4 Active hydrocortisone (ANUSOL-HC) 2.5 % rectal creamIndications :Hemorrhoids, unspecified hemorrhoid type Insert into the rectum 2 (two) times a day as needed for hemorrhoids (rectal discomfort) Apply to affected areas 30 g 4 Active atorvastatin (LIPITOR) 40 mg tablet 1 tablet (40 mg total) 8 Active LORazepam (ATIVAN) 0.5 mg tablet Active phentermine (ADIPEX-P) 37.5 mg tablet 0 4 Active SUMAtriptan (IMITREX) 50 mg tablet Active triamcinolone (KENALOG) 0.1 % creamIndications :Insect bite, unspecified site, initial encounter Apply topically 3 (three) times a day for 10 days 80 g 4 Active Active Problems No known active problems Surgical History Surgery Date Site/Laterality Comments NO PAST SURGERIES Medical History Medical History Date Comments Low back pain Anxiety Obesity Migraines with aura Social History Tobacco Use Types Packs/Day Years Used Date Smoking Tobacco: Never Tobacco Cessation:Counseling Given: Not Answered Alcohol Use Standard Drinks/Week Comments Never 0 (1 standard drink = 0.6 oz pur e alcohol) Personal Safety Answer Date Recorded Getting School Help Needed Not on file 01/10 Comments Unknown Sex and Gender Information Value Date Recorded Sex Assigned at Not on file Legal Sex Female 7:31 PM H[place] Gender Identity Not on file Sexual Orientation Not on file Obstetrics History Last Filed Vital Signs Vital Sign Reading Time Taken Comments Blood Pressure 126/76 08/04/2024 6:17 PM CDT Pulse 59 08/04/2024 6:17 PM CDT Temperature 36.4 C (97.6 F) 08/04/2024 6:17 PM CDT Respiratory Rate 18 08/04/2024 6:17 PM CDT Oxygen Saturation 97% 08/04/2024 6:17 PM CDT Inhaled Oxygen Concentration - - Weight 107.5 kg (237 lb) 08/04/2024 6:17 PM CDT Height 167.6 cm (5' 6) 08/04/2024 6:17 PM CDT Body Mass Index 38.25 08/04/2024 6:17 PM CDT Plan of Treatment Health Maintenance Due Date Last Done Comments Breast Cancer Screening-Mammogram 1978 Cervical Cancer Screening 1978 Colon Cancer Screening-Colonoscopy 1978 Depression Screening 1978 Hepatitis C Screening 1978 Regular Well Visit/Exam 18-64 1996 DTaP/Tdap/Td Vaccine (2 - Td or Tdap) 10/28/2022 10/28/2012 Covid-19 Vaccine (3 - 2024-2 6 season) 2025 03/13/2021, 02/20/2021 Influenza Vaccine (#1) 2025 Hepatitis B Screening Completed 09/13/2004 , 06/12/2004, 05/12/2004 Pneumococcal vaccine <65 Aged Out No longer eligible based on patient's age to complete this topic Insurance [facility] Care Teams Computer Network Specialist Relationship Specialty Start Date End Date Pooja Romeo NP [facility] [facility] [place] [address] PCP - General Nurse Practitioner 05/14/24
== END 2025-08-11 12:45 | disposition home or self-care (01) ==
PROVIDERS: PCP Nurse Practitioner Family; Visit Provider Nurse Practitioner Family
DX: Z87.442 Personal history of urinary calculi (principal)
CPT/HCPCS: 74018

== ENCOUNTER 2025-08-20 11:26 | Outpatient (CLI) | payer OTHER, SELFPAY ==
--- NOTE | ~2025-08-20 | CT_ITS ---
CT ABDOMEN AND PELVIS WITHOUT CONTRAST Clinical History: Z87.442 - Personal history of urinary calculi Comparison: CT abdomen pelvis 10/17/2019 Technique: Unenhanced axial images lung bases to symphysis pubis Coronal, sagittal reformats CT images acquired with automatic exposure control for dose reduction DLP: 819 mGy-cm Findings: Without intravenous contrast, sensitivity for detecting visceral parenchymal abnormalities decreased. Lung bases: Clear. Visualized heart and pericardium: Unremarkable. Liver: Enlarged. Steatosis. Gallbladder: Unremarkable. Spleen: Unremarkable. Pancreas: Unremarkable. Adrenal glands: Unremarkable. Kidneys: Right kidney- No hydronephrosis. No renal stones. Left kidney- No hydronephrosis. No renal stones. Distal esophagus/stomach: Unremarkable. Small bowel loops: Normal caliber and wall thickness. Colon: Diverticula. Normal caliber and wall thickness. Normal RLQ appendix. Nodes: No enlarged nodes. Peritoneum: No ascites. No free intraperitoneal air. Urinary bladder: Unremarkable. Uterus: Unremarkable. Adnexa: No masses. Cystic focus left side Bones: No acute bony abnormality. Soft tissues: Unremarkable. Unopacified abdominal aorta: No aneurysmal dilatation. IMPRESSION: 1. No acute findings. Reviewed, dictated and finalized at location R. IMPRESSION: 1. No acute findings.
--- OUTSIDE RECORDS SUMMARY | 2025-08-20 11:43 | XMS_ITS | Clinical Summary ---
Author Organization [facility] Address [address], [address] [address] Phone Care Team Providers Care Distillery Manager Name Role Phone Sameera Ennis APRN, CONTAINERS SALES REPRESENTATIVE Primary Care Provider + Allergies No known active allergies Medications atorvastatin (LIPITOR) 40 MG Tablet Take 40 mg by mouth daily. 4 8 Active LORazepam (ATIVAN) 1 MG Tablet Take 1 mg by mouth daily as needed. MAY TAKE ON DAY OF COLONOSCOPY 04-15-19 PER RABIA FERNANDEZ PROCEDURES RN 0 8 Active Magnesium 250 MG Tablet [...] Insurance MEDICAID [employer] Care Teams Distillery Manager Relationship Specialty Start Date End Date Sameera Ennis, MASTER CRAFTSMAN, CONTAINERS SALES REPRESENTATIVE PCP - General Advanced Practice Nurse 03/14/22
--- OUTSIDE RECORDS SUMMARY | 2025-08-20 11:43 | XMS_ITS | Clinical Summary ---
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
--- OUTSIDE RECORDS SUMMARY | 2025-08-20 11:43 | XMS_ITS | Data Portability ---
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 Role Phone TONIAAARON DO Primary Care Provider Assessment Encounter Date Assessment Date Assessment LastModified [...] Lab lipid panel, serum 2022 023 [email or web address] [facility] ([facility]), [address], [place], [address], 3 15:10:19 HbA1c (hemoglobi n A1c), blood 2022 023 [facility] ([facility]), [address], [place], [address], 3 06:59:56 CMP, serum or plasma 2022 023 [facility] ([facility]), [address], [place], [address], 3 06:59:55 CBC w/ auto diff 2022 023 [facility] ([facility]), [address], [place], [address], 3 06:59:54 TSH, serum or plasma 2022 023 [facility] ([facility]), [address], [place], [address], 3 06:59:56 CMP, serum or plasma 2019 020 [facility] ([facility]), [address], [place], [address], 0 08:33:35 CBC w/ auto diff 2019 020 [place] [facility] ([facility]), [address], [place], [address], 0 08:33:35 HbA1c (hemoglobi n A1c), blood 2019 020 [facility] ([facility]), [address], [place], [address], 0 08:33:36 lipid panel, serum 2019 020 [facility] ([facility]), [address], [place], [address], 0 08:33:34 TSH, serum or plasma 2019 020 [facility] ([facility]), [address] [facility] [address], [place], [address], 0 08:33:37 Referral None recorded. Procedures None recorded. Surgeries None recorded. Imaging MAMMO, screening, bilateral 2022 023 [facility], [address], [place], [address], 3 05:01:16 MAMMO, screening, digital, bilateral 2020 021 [facility], [address], [place], [address], 1 11:11:34 Medication Orders None recorded. Patient TargetsNo targets recorded. Patient Instructions Encounter Date Encounter Id Patient Instructions Last Modified By Organization Details Last Modified Time 08/15/2020 [id number] [email or web address] Not available 12:23:26 Reason for Referral None Reported. Results Created Date Observation Date Name Description Value Unit Range Abnormal Flag Note LastModifiedBy Organization Detail LastModifiedTime 08/15/20 20 08/16/2020 lipid panel , serum cholesterol 215 mg/dL <200 high Not Available [facility] ([facility]) [address] [place] [address] [address], [place], [address], 08/16/2020 08:33:34 08/15/20 20 08/16/2020 lipid panel , serum triglyceride s 147 mg/dL <150 Not Available [facility] ([facility]) [address] [place] [address] [address], [place], [address], 08/16/2020 08:33:34 08/15/20 20 08/16/2020 lipid panel , serum HDL cholesterol 48 mg/dL >39 Not Available [facility] ([facility]) [address] [facility] [address], [place], [address], 08/16/2020 08:33:34 08/15/2008/16/2020 lipid panel , serum cholesterol / HDL ratio 4.48 ratio 0.00-4 .44 high Not Available [facility] ([facility]) [address] [facility] [address], [place], [address], 08/16/2020 08:33:34 08/15/2008/16/2020 lipid panel , serum non-HDL cholesterol 167 mg/dL <130 high Not Available [facility] ([facility]) [address] [facility] [address], [place], [address], 08/16/2020 08:33:34 08/15/2008/16/2020 lipid panel , serum [...] 2004 ATPII I guide lines Not Available [facility] ([facility]) [address] [facility] [address], [place], [address], 08/16/2020 08:33:34 08/15/2008/16/2020 lipid panel , serum [...] Varun nathan (LIPC VD). Not Available [facility] ([facility]) [address] [place] [address] [address], [place], [address], 08/16/2020 08:33:34 08/15/2008/16/2020 CBC w/ auto diff WBC 6.3 K/uL 3.8-11 .5 Not Available [facility] ([facility]) [address] [place] [address] [address], [place], [address], 08/16/2020 08:33:34 08/15/2008/16/2020 CBC w/ auto diff red blood cell count (RBC) 4.44 M/mm3 3.60-5 .30 Not Available [facility] ([facility]) [address] [place] [address] [address], [place], [address], 08/16/2020 08:33:34 08/15/20 20 08/16/2020 CBC w/ auto diff hemoglobin (HGB) 13.1 gm/dL 11.5-1 5.5 Not Available [facility] ([facility]) [address] [place] [address] [address], [place], [address], 08/16/2020 08:33:34 08/15/2008/16/2020 CBC w/ auto diff hematocrit (HCT) 38.0 % 35.2-4 6.4 Not Available [facility] ([facility]) [address] [place] [address] [address], [place], [address], 08/16/2020 08:33:34 08/15/2008/16/2020 CBC w/ auto diff MCV 85.6 fL 79.0-9 9.0 Not Available [facility] ([facility]) [address] [place] [address] [address], [place], [address], 08/16/2020 08:33:34 08/15/2008/16/2020 CBC w/ auto diff MCH 29.5 pg 26.9-3 5.0 Not Available [facility] ([facility]) [address] [place] [address] [address], [place], [address], 08/16/2020 08:33:34 08/15/2008/16/2020 CBC w/ auto diff MCHC 34.5 g/dL 30.4-3 4.8 Not Available [facility] ([facility]) [address] [place] [address] [address], [place], [address], 08/16/2020 08:33:34 08/15/20 20 08/16/2020 CBC w/ auto diff RDW 41.3 fL 38.6-5 3.8 Not Available [facility] ([facility]) [address] [place] [address] [address], [place], [address], 08/16/2020 08:33:34 08/15/2008/16/2020 CBC w/ auto diff platelet count 302 K/cum m 137-39 7 Not Available [facility] ([facility]) [address] [place] [address] [address], [place], [address], 08/16/2020 08:33:34 08/15/2008/16/2020 CBC w/ auto diff neutrophils automated 61.5 % 41.0-7 7.0 Not Available [facility] ([facility]) [address] [place] [address] [address], [place], [address], 08/16/2020 08:33:34 08/15/2008/16/2020 CBC w/ auto diff lymphocytes automated 23.8 % 14.0-4 8.0 Not Available [facility] ([facility]) [address] [place] [address] [address], [place], [address], 08/16/2020 08:33:34 08/15/2008/16/2020 CBC w/ auto diff monocytes automated 6.9 % 4.0-13 .0 Not Available [facility] ([facility]) [address] [place] [address] [address], [place], [address], 08/16/2020 08:33:34 08/15/20 20 08/16/2020 CBC w/ auto diff eosinophils automated 6.7 % 0.0-8. 0 Not Available [facility] ([facility]) [address] [place] [address] [address], [place], [address], 08/16/2020 08:33:34 08/15/20 20 08/16/2020 CBC w/ auto diff basophils automated 0.8 % 0.0-1. 5 Not Available [facility] ([facility]) [address] [place] [address] [address], [place], [address], 08/16/2020 08:33:34 08/15/20 20 08/16/2020 CBC w/ auto diff immature granulocyte automated 0.3 % 0.0-1. 0 Not Available [facility] ([facility]) [address] [facility] [address], [place], [address], 08/16/2020 08:33:34 08/15/2008/16/2020 CMP, serum or plasm a sodium 139 mEq/L 135-14 5 Not Available [facility] ([facility]) [address] [facility] [address], [place], [address], 08/16/2020 08:33:35 08/15/2008/16/2020 CMP, serum or plasm a potassium 4.2 mEq/L 3.5-5. 3 Not Available [facility] ([facility]) [facility] [facility] [address], [place], [address], 08/16/2020 08:33:35 08/15/2008/16/2020 CMP, serum or plasm a chloride 102 mEq/L 97-108 Not Available [facility] ([facility]) [address] [place] [address] [address], [place], [address], 08/16/2020 08:33:35 08/15/2008/16/2020 CMP, serum or plasm a CO2 28 mEq/L 22-32 Not Available [facility] ([facility]) [address] [place] [address] [address], [place], [address], 08/16/2020 08:33:35 08/15/20 20 08/16/2020 CMP, serum or plasm a glucose 124 mg/dL 65-99 high Not Available [facility] ([facility]) [facility] [address], [place], [address], 08/16/2020 08:33:35 08/15/20 20 08/16/2020 CMP, serum or plasm a BUN 8 mg/dL 6-20 Not Available [facility] ([facility]) [address] [place] [address] [address], [place], [address], 08/16/2020 08:33:35 08/15/2008/16/2020 CMP, serum or plasm a creatinine 0.67 mg/dL 0.50-1 .00 Not Available [facility] ([facility]) [address] [place] [address] [address], [place], [address], 08/16/2020 08:33:35 08/15/20 20 08/16/2020 CMP, serum or plasm a calcium 9.1 mg/dL 8.6-10 .4 Not Available [facility] ([facility]) [address] [place] [address] [address], [place], [address], 08/16/2020 08:33:35 08/15/20 20 08/16/2020 CMP, serum or plasm a protein 7.0 g/dL 6.0-8. 3 Not Available [facility] ([facility]) [address] [place] [address] [address], [place], [address], 08/16/2020 08:33:35 08/15/20 20 08/16/2020 CMP, serum or plasm a albumin 4.4 g/dL 3.5-5. 3 Not Available [facility] ([facility]) [address] [place] [address] [address], [place], [address], 08/16/2020 08:33:35 08/15/20 20 08/16/2020 CMP, serum or plasm a alkaline phosphatase 98 IU/L 35-121 Not Available [facility] ([facility]) [address] [place] [address] [address], [place], [address], 08/16/2020 08:33:35 08/15/20 20 08/16/2020 CMP, serum or plasm a ALT (SGPT) 29 IU/L <5-47 Not Available [facility]) [address] [place] [address] [address], [place], [address], 08/16/2020 08:33:35 08/15/20 20 08/16/2020 CMP, serum or plasm a AST (SGOT) 26 IU/L <5-40 Not Available [facility]) [address] [place] [address] [address], [place], [address], 08/16/2020 08:33:35 08/15/20 20 08/16/2020 CMP, serum or plasm a bilirubin, total 0.4 mg/dL <0.2-[address] [facility]) [address] [place] [address] [address], [place], [address], 08/16/2020 08:33:35 08/15/20 20 08/16/2020 CMP, serum or plasm a A/G ratio 1.7 mg/dL 1.1-2. 5 Not Available [facility] ([facility]) [address] [place] [address] [address], [place], [address], 08/16/2020 08:33:35 08/15/20 20 08/16/2020 GFR, estim ated (eGFR ), serum estimated GFR (black) 126 mL/mi n/1.7 3m2 >59 Not Available [facility]) [address] [place] [address] [address], [place], [address], 08/16/2020 08:33:36 08/15/20 20 08/16/2020 GFR, estim [...] e mass or diet. Not Available [facility] ([facility]) [address] [facility] [address], [place], [address], 08/16/2020 08:33:36 08/15/20 20 08/16/2020 HbA1c (hemo [...] <5.7% Non-D iabet ic Not Available [facility] ([facility]) [address] [facility] [address], [place], [address], 08/16/2020 08:33:36 08/15/20 20 08/16/2020 estim ated avera ge gluco se estimated average glucose 105 mg/dL [place] ge Gluco se is calcu lated using the equat ion AG = (28.7 x HgbA1 c) - 46.7 based on the guide lines alex sanchez by the ADA. Not Available [facility] [place] ([facility]) [address], [place], [address], 08/16/2020 08:33:36 08/15/20 20 08/16/2020 TSH, serum or plasm a TSH reflex to FT4 1.89 mU/L 0.27-4 .20 Not Available [facility] ([facility]) [address], [place], [address], 08/16/2020 08:33:37 09/06/20 21 09/06/2021 CBC W/DIF F WBC 6.1 10'3/ uL 3.6-[address] [facility] (Lab) [address], [place], [address], 09/07/2021 03:52:34 09/06/20 21 09/06/2021 CBC W/DIF F RBC 4.50 10'6/ uL (based on docume nted legal sex) 4.10-[address] [facility] (Lab) [address], [place], [address], 09/07/2021 03:52:34 09/06/20 21 09/06/2021 CBC W/DIF F HGB 12.9 g/dL (based on docume nted legal sex) 11.9-[address] [facility] (Lab) [address], [place], [address], 09/07/2021 03:52:34 09/06/20 21 09/06/2021 CBC W/DIF F HCT 40.3 % (based on docume nted legal sex) 37.4-[address] [facility] (Lab) [address], [place], [address], 09/07/2021 03:52:34 09/06/20 21 09/06/2021 CBC W/DIF F MCV 89.0 fL 82.0-[address] [facility] (Lab) [address], [place], [address], 09/07/2021 03:52:34 09/06/20 21 09/06/2021 CBC W/DIF F MCH 28.0 pg 27.0-[address] [facility] (Lab) [address], [place], [address], 09/07/2021 03:52:34 09/06/20 21 09/06/2021 CBC W/DIF F MCHC 32.0 g/dL 32.0-[address] [facility] (Lab) [address], [place], [address], 09/07/2021 03:52:34 09/06/20 21 09/06/2021 CBC W/DIF F RDW 14.0 % 11.0-[address] [facility] (Lab) [address], [place], [address], 09/07/2021 03:52:34 09/06/20 21 09/06/2021 CBC W/DIF F plt 306 10'3/ uL 150-[address] [facility] (Lab) [address], [place], [address], 09/07/2021 03:52:34 09/06/20 21 09/06/2021 CBC W/DIF F MPV 9.6 fL 9.8-12 .[address] [facility] (Lab) [address], [place], [address], 09/07/2021 03:52:34 09/06/20 21 09/06/2021 CBC W/DIF F NRBC's 0.00 % [address] [facility] (Lab) [address], [place], [address], 09/07/2021 03:52:34 09/06/20 21 09/06/2021 CBC W/DIF F absolute NRBCs 0.0 10'3/ uL [address] [facility] (Lab) [address], [place], [address], 09/07/2021 03:52:34 09/06/20 21 09/06/2021 CBC W/DIF F neutrophils 61.0 % 37.0-[address] [facility] (Lab) [address] [facility], [place], [address], 09/07/2021 03:52:34 09/06/20 21 09/06/2021 CBC W/DIF F lymphocytes 25.0 % 16.0-[address] [facility] (Lab) [address], [place], [address], 09/07/2021 03:52:34 09/06/20 21 09/06/2021 CBC W/DIF F monocytes 8.0 % 4.0-[address] [facility] (Lab) [address] [facility], [place], [address], 09/07/2021 03:52:34 09/06/20 21 09/06/2021 CBC W/DIF F eosinophils 5.0 % 0.0-9. [address] [facility] (Lab) [address] [facility], [place], [address], 09/07/2021 03:52:34 09/06/20 21 09/06/2021 CBC W/DIF F basophils 1.0 % 0.0-2. [address] [facility] (Lab) [address] [facility], [place], [address], 09/07/2021 03:52:34 09/06/20 21 09/06/2021 CBC W/DIF F immature granulocytes 0.0 % no define d refere nce range Not Available [facility] (Lab) [address], [place], [address], 09/07/2021 03:52:34 09/06/20 21 09/06/2021 CBC W/DIF F absolute neutrophils 3.7 10'3/ uL 1.1-6. [address] [facility] (Lab) [address] [facility], [place], [address], 09/07/2021 03:52:34 09/06/20 21 09/06/2021 CBC W/DIF F absolute lymphocytes 1.5 10'3/ uL 0.7-3. [address] [facility] (Lab) [address] [facility], [place], [address], 09/07/2021 03:52:34 09/06/20 21 09/06/2021 CBC W/DIF F absolute monocytes 0.5 10'3/ uL 0.3-1. [address] [facility] (Lab) [address] [facility], [place], [address], 09/07/2021 03:52:34 09/06/20 21 09/06/2021 CBC W/DIF F absolute eosinophils 0.3 10'3/ uL 0.0-0. [address] [facility] (Lab) [address] [facility], [place], [address], 09/07/2021 03:52:34 09/06/20 21 09/06/2021 CBC W/DIF F absolute basophils 0.1 10'3/ uL 0.0-0. [address] [facility] (Lab) [address] [facility], [place], [address], 09/07/2021 03:52:34 09/06/20 21 09/06/2021 CBC W/DIF [...] resul ts are expec alissa. Not Available [facility] (Lab) [address], [place], [address], 09/07/2021 03:52:34 09/06/2009/06/2021 HEMOG LOBIN A1C hemoglobin [...] >8.0% Actio n sugge sted Not Available [facility] (Lab) [address] [facility], [place], [address], 09/07/2021 03:52:35 09/06/20 21 09/06/2021 LIPID PANEL ,AMA (LDL- CALC) total cholesterol 186 mg/dL 0-199 Not Available [facility] (Lab) [address] [facility], [place], [address], 09/07/2021 03:52:35 09/06/2009/06/2021 LIPID PANEL ,AMA (LDL- CALC) triglyceride s 179 mg/dL 0.00-1 50.00 high NCEP Refer ence Value s for Trigl yceri luis fernando: Amy l: <150 mg/dL Borde rline High: 150 - 199 mg/dL High: 200 - 499 mg/dL Very High: >/= 500 mg/dL Not Available [facility] (Lab) [address], [place], [address], 09/07/2021 03:52:35 09/06/20 21 09/06/2021 LIPID PANEL ,AMA (LDL- CALC) HDL cholesterol 52 mg/dL >40 Not Available [facility] (Lab) [address] [place], [address], 09/07/2021 03:52:35 09/06/20 21 09/06/2021 LIPID PANEL [...] mg/dL , HDL <40 mg/dL Not Available [facility] (Lab) [address], [place], [address], 09/07/2021 03:52:35 09/06/20 21 09/06/2021 LIPID PANEL ,AMA (LDL- CALC) non-HDL cholesterol 134 mg/dL no refere nce range A reaso nable goal for non-H DL nataliia stero l is one that is 30 mg/dL highe r than the LDL nataliia stero l goal. Not Available [facility] (Lab) [address] , [place], [address], 09/07/2021 03:52:35 09/06/20 21 09/06/2021 LIPID PANEL ,AMA (LDL- CALC) chol/HDL ratio 3.6 . 0.0-5. [address] [facility] (Lab) [address] [place], [address], 09/07/2021 03:52:35 09/06/20 21 09/06/2021 CMP(C OMPRE HENSI VE METAB OLIC PANEL ) sodium 138 mmol/ L 133-[address] [facility] (Lab) [address] [facility], [place], [address], 09/07/2021 03:52:36 09/06/20 21 09/06/2021 CMP(C OMPRE HENSI VE METAB OLIC PANEL ) potassium 4.3 mmol/ L 3.5-5. [address] [facility] (Lab) [address] [facility], [place], [address], 09/07/2021 03:52:36 09/06/20 21 09/06/2021 CMP(C OMPRE HENSI VE METAB OLIC PANEL ) chloride 101 mmol/ L 98-[address] [facility] (Lab) [address] [facility], [place], [address], 09/07/2021 03:52:36 09/06/20 21 09/06/2021 CMP(C OMPRE HENSI VE METAB OLIC PANEL ) carbon dioxide 28 mmol/ L 21-[address] [facility] (Lab) [address] [facility], [place], [address], 09/07/2021 03:52:36 09/06/20 21 09/06/2021 CMP(C OMPRE HENSI VE METAB OLIC PANEL ) anion gap 9 mmol/ L 4-[address] [facility] (Lab) [address] [facility], [place], [address], 09/07/2021 03:52:36 09/06/20 21 09/06/2021 CMP(C OMPRE HENSI VE METAB OLIC PANEL ) blood urea nitrogen 7 mg/dL 7-25 Not Available [facility] (Lab) [address] [facility], [place], [address], 09/07/2021 03:52:36 09/06/20 21 09/06/2021 CMP(C OMPRE HENSI VE METAB OLIC PANEL ) creatinine 0.77 mg/dL 0.60-[address] [facility] (Lab) [address] [facility], [place], [address], 09/07/2021 03:52:36 09/06/20 21 09/06/2021 CMP(C OMPRE HENSI VE METAB OLIC PANEL ) egfrcr (CKD-epi 2020) >90 mL/mi n/1.7 3_m2 >=[address] [facility] (Lab) [address], [place], [address], 09/07/2021 03:52:36 09/06/20 21 09/06/2021 CMP(C OMPRE HENSI VE METAB OLIC PANEL ) calcium 9.2 mg/dL 8.3-[address] [facility] (Lab) [address], [place], [address], 09/07/2021 03:52:36 09/06/20 21 09/06/2021 CMP(C OMPRE HENSI VE METAB OLIC PANEL ) glucose 116 mg/dL 70-[address] [facility] (Lab) [address], [place], [address], 09/07/2021 03:52:36 09/06/20 21 09/06/2021 CMP(C OMPRE HENSI VE METAB OLIC PANEL ) protein, total 6.9 g/dL 6.4-8. [address] [facility] (Lab) [address], [place], [address], 09/07/2021 03:52:36 09/06/20 21 09/06/2021 CMP(C OMPRE HENSI VE METAB OLIC PANEL ) albumin 4.3 g/dL 3.5-5. [address] [facility] (Lab) [address], [place], [address], 09/07/2021 03:52:36 09/06/20 21 09/06/2021 CMP(C OMPRE HENSI VE METAB OLIC PANEL ) ALT 43 units /L 9-[address] [facility] (Lab) [address], [place], [address], 09/07/2021 03:52:36 09/06/20 21 09/06/2021 CMP(C OMPRE HENSI VE METAB OLIC PANEL ) alkaline phosphatase 82 units /L 34-[address] [facility] (Lab) [address], [place], [address], 09/07/2021 03:52:36 09/06/20 21 09/06/2021 CMP(C OMPRE HENSI VE METAB OLIC PANEL ) AST 42 units /L 13-[address] [facility] (Lab) [address], [place], [address], 09/07/2021 03:52:36 09/06/20 21 09/06/2021 CMP(C OMPRE HENSI VE METAB OLIC PANEL ) bilirubin, total 0.7 mg/dL 0.2-1. [address] [facility] (Lab) [address], [place], [address], 09/07/2021 03:52:36 09/06/20 21 09/06/2021 VITAM IN D, 25-OH (TOTA L D2/D3 ) vitamin D, 25-hydroxy, total 32.1 NG/mL 30-80 NOTE: Defic iency : <20 ng/mL Insuf ficie ncy: 20-29 ng/mL Optim um Level : 30-80 ng/mL Possi ble Toxic ity: >80 ng/mL Most patie nts with toxic ity have level s >150 ng/mL . Not Available [facility] (Lab) [address], [place], [address], 09/07/2021 03:52:36 09/07/20 21 09/07/2021 IMAGE GUIDE D PAP AND HPV REGAR DLESS image guided Pap, HPV regardless of Pap result SEE RESULT S BELOW CASE REPOR T: Cytol ogy Gynec ologi miguelina Repor t Case: [id number] Autho corby g Provi daisy: Jerardo Trejo Colle cted: 09/07 0844 [employer] Order ing Locat ion: [place] Patho logy [...] d, as clini patricio grayson. Not Available [facility] (Lab) [address], [place], [address], 09/14/2021 08:23:54 04/05/20 22 04/05/2022 LIPID PANEL ,AMA (LDL- CALC) total cholesterol 190 mg/dL 0-199 Not Available [facility] (Lab) [address] [place], [address], 04/06/2022 03:57:24 04/05/20 22 04/05/2022 LIPID PANEL ,AMA (LDL- CALC) triglyceride s 147 mg/dL 0.00-1 50.00 NCEP Refer ence Value s for Trigl yceri luis fernando: Amy l: <150 mg/dL Borde rline High: 150 - 199 mg/dL High: 200 - 499 mg/dL Very High: >/= 500 mg/dL Not Available [facility] (Lab) [address] [place], [address], 04/06/2022 03:57:24 04/05/20 22 04/05/2022 LIPID PANEL ,AMA (LDL- CALC) HDL cholesterol 45 mg/dL >40 Not Available [facility] (Lab) [address] [place], [address], 04/06/2022 03:57:24 04/05/20 22 04/05/2022 LIPID PANEL [...] mg/dL , HDL <40 mg/dL Not Available [facility] (Lab) [address], [place], [address], 04/06/2022 03:57:24 04/05/20 22 04/05/2022 LIPID PANEL ,AMA (LDL- CALC) non-HDL cholesterol 145 mg/dL no refere nce range A reaso nable goal for non-H DL nataliia stero l is one that is 30 mg/dL highe r than the LDL nataliia stero l goal. Not Available [facility] (Lab) [address], [place], [address], 04/06/2022 03:57:24 04/05/20 22 04/05/2022 LIPID PANEL ,AMA (LDL- CALC) chol/HDL ratio 4.2 . 0.0-5. [address] [facility] (Lab) [address], [place], [address], 04/06/2022 03:57:24 04/05/20 22 04/05/2022 CMP(C OMPRE HENSI VE METAB OLIC PANEL ) sodium 138 mmol/ L 133-[address] [facility] (Lab) [address], [place], [address], 04/06/2022 03:57:25 04/05/20 22 04/05/2022 CMP(C OMPRE HENSI VE METAB OLIC PANEL ) potassium 4.3 mmol/ L 3.5-5. [address] [facility] (Lab) [address] [place], [address], 04/06/2022 03:57:25 04/05/20 22 04/05/2022 CMP(C OMPRE HENSI VE METAB OLIC PANEL ) chloride 104 mmol/ L 98-[address] [facility] (Lab) [address] [place], [address], 04/06/2022 03:57:25 04/05/20 22 04/05/2022 CMP(C OMPRE HENSI VE METAB OLIC PANEL ) carbon dioxide 25 mmol/ L 21-[address] [facility] (Lab) [address], [place], [address], 04/06/2022 03:57:25 04/05/20 22 04/05/2022 CMP(C OMPRE HENSI VE METAB OLIC PANEL ) anion gap 9 mmol/ L 4-[address] [facility] (Lab) [address], [place], [address], 04/06/2022 03:57:25 04/05/20 22 04/05/2022 CMP(C OMPRE HENSI VE METAB OLIC PANEL ) blood urea nitrogen 11 mg/dL 7-25 Not Available [facility] (Lab) [address], [place], [address], 04/06/2022 03:57:25 04/05/20 22 04/05/2022 CMP(C OMPRE HENSI VE METAB OLIC PANEL ) creatinine 0.76 mg/dL 0.60-[address] [facility] (Lab) [address], [place], [address], 04/06/2022 03:57:25 04/05/20 22 04/05/2022 CMP(C OMPRE HENSI VE METAB OLIC PANEL ) egfrcr (CKD-epi 2020) >90 mL/mi n/1.7 3_m2 >=[address] [facility] (Lab) [address], [place], [address], 04/06/2022 03:57:25 04/05/20 22 04/05/2022 CMP(C OMPRE HENSI VE METAB OLIC PANEL ) calcium 9.4 mg/dL 8.3-[address] [facility] (Lab) [address], [place], [address], 04/06/2022 03:57:25 04/05/20 22 04/05/2022 CMP(C OMPRE HENSI VE METAB OLIC PANEL ) glucose 131 mg/dL 70-[address] [facility] (Lab) [address], [place], [address], 04/06/2022 03:57:25 04/05/20 22 04/05/2022 CMP(C OMPRE HENSI VE METAB OLIC PANEL ) protein, total 6.7 g/dL 6.4-8. [address] [facility] (Lab) [address], [place], [address], 04/06/2022 03:57:25 04/05/20 22 04/05/2022 CMP(C OMPRE HENSI VE METAB OLIC PANEL ) albumin 4.0 g/dL 3.5-5. [address] [facility] (Lab) [address], [place], [address], 04/06/2022 03:57:25 04/05/20 22 04/05/2022 CMP(C OMPRE HENSI VE METAB OLIC PANEL ) ALT 49 units /L 9-[address] [facility] (Lab) [address], [place], [address], 04/06/2022 03:57:25 04/05/20 22 04/05/2022 CMP(C OMPRE HENSI VE METAB OLIC PANEL ) alkaline phosphatase 75 units /L 34-[address] [facility] (Lab) [address] [place], [address], 04/06/2022 03:57:25 04/05/20 22 04/05/2022 CMP(C OMPRE HENSI VE METAB OLIC PANEL ) AST 49 units /L 13-[address] [facility] (Lab) [address] [place], [address], 04/06/2022 03:57:25 04/05/20 22 04/05/2022 CMP(C OMPRE HENSI VE METAB OLIC PANEL ) bilirubin, total 0.6 mg/dL 0.2-1. [address] [facility] (Lab) [address] [place], [address], 04/06/2022 03:57:25 04/05/20 22 04/05/2022 VITAM IN D, 25-OH (TOTA L D2/D3 ) vitamin D, 25-hydroxy, total 46.3 NG/mL 30-80 NOTE: Defic iency : <20 ng/mL Insuf ficie ncy: 20-29 ng/mL Optim um Level : 30-80 ng/mL Possi ble Toxic ity: >80 ng/mL Most patie nts with toxic ity have level s >150 ng/mL . Not Available [facility] (Lab) [address], [place], [address], 04/06/2022 03:57:25 04/05/20 22 04/05/2022 HEMOG LOBIN [...] >8.0% Actio n sugge sted Not Available [facility] (Lab) [address], [place], [address], 04/06/2022 03:57:26 03/22/20 23 03/22/2023 CBC W/DIF F WBC 5.2 10'3/ uL 3.6-[address] [facility] (Lab) [address], [place], [address], 03/23/2023 06:59:54 03/22/2003/22/2023 CBC W/DIF F RBC 4.26 10'6/ uL (based on docume nted legal sex) 4.10-[address] [facility] (Lab) [address], [place], [address], 03/23/2023 06:59:54 03/22/20 23 03/22/2023 CBC W/DIF F HGB 11.6 g/dL (based on docume nted legal sex) 11.9-1 5.[address] [facility] (Lab) [address], [place], [address], 03/23/2023 06:59:54 03/22/20 23 03/22/2023 CBC W/DIF F HCT 37.9 % (based on docume nted legal sex) 37.4-[address] [facility] (Lab) [address], [place], [address], 03/23/2023 06:59:54 03/22/20 23 03/22/2023 CBC W/DIF F MCV 89.0 fL 82.0-[address] [facility] (Lab) [address], [place], [address], 03/23/2023 06:59:54 03/22/20 23 03/22/2023 CBC W/DIF F MCH 27.2 pg 27.0-[address] [facility] (Lab) [address], [place], [address], 03/23/2023 06:59:54 03/22/20 23 03/22/2023 CBC W/DIF F MCHC 30.6 g/dL 32.0-3 [address] [facility] (Lab) [address], [place], [address], 03/23/2023 06:59:54 03/22/20 23 03/22/2023 CBC W/DIF F RDW 14.8 % 11.0-[address] [facility] (Lab) [address], [place], [address], 03/23/2023 06:59:54 03/22/20 23 03/22/2023 CBC W/DIF F plt 276 10'3/ uL 150-[address] [facility] (Lab) [address], [place], [address], 03/23/2023 06:59:54 03/22/20 23 03/22/2023 CBC W/DIF F MPV 10.0 fL 9.8-[address] [facility] (Lab) [address], [place], [address], 03/23/2023 06:59:54 03/22/20 23 03/22/2023 CBC W/DIF F NRBC's 0.0 % [address] [facility] (Lab) [address], [place], [address], 03/23/2023 06:59:54 03/22/20 23 03/22/2023 CBC W/DIF F absolute NRBCs 0.0 10'3/ uL [address] [facility] (Lab) [address], [place], [address], 03/23/2023 06:59:54 03/22/20 23 03/22/2023 CBC W/DIF F neutrophils 52.2 % 37.0-[address] [facility] (Lab) [address], [place], [address], 03/23/2023 06:59:54 03/22/20 23 03/22/2023 CBC W/DIF F lymphocytes 28.4 % 16.0-[address] [facility] (Lab) [address], [place], [address], 03/23/2023 06:59:54 03/22/20 23 03/22/2023 CBC W/DIF F monocytes 6.6 % 4.0-[address] [facility] (Lab) [address], [place], [address], 03/23/2023 06:59:54 03/22/20 23 03/22/2023 CBC W/DIF F eosinophils 11.2 % 0.0-9. [address] [facility] (Lab) [address], [place], [address], 03/23/2023 06:59:54 03/22/20 23 03/22/2023 CBC W/DIF F basophils 1.2 % 0.0-2. [address] [facility] (Lab) [address], [place], [address], 03/23/2023 06:59:54 03/22/20 23 03/22/2023 CBC W/DIF F immature granulocytes 0.4 % no define d refere nce range Not Available [facility] (Lab) [address], [place], [address], 03/23/2023 06:59:54 03/22/20 23 03/22/2023 CBC W/DIF F absolute neutrophils 2.7 10'3/ uL 1.1-6. [address] [facility] (Lab) [address], [place], [address], 03/23/2023 06:59:54 03/22/20 23 03/22/2023 CBC W/DIF F absolute lymphocytes 1.5 10'3/ uL 0.7-3. [address] [facility] (Lab) [address], [place], [address], 03/23/2023 06:59:54 03/22/20 23 03/22/2023 CBC W/DIF F absolute monocytes 0.3 10'3/ uL 0.3-1. [address] [facility] (Lab) [address] [place], [address], 03/23/2023 06:59:54 03/22/20 23 03/22/2023 CBC W/DIF F absolute eosinophils 0.6 10'3/ uL 0.0-0. [address] [facility] (Lab) [address], [place], [address], 03/23/2023 06:59:54 03/22/2003/22/2023 CBC W/DIF F absolute basophils 0.1 10'3/ uL 0.0-0. [address] [facility] (Lab) [address], [place], [address], 03/23/2023 06:59:54 03/22/20 23 03/22/2023 CBC W/DIF [...] resul ts are expec alissa. Not Available [facility] (Lab) [address], [place], [address], 03/23/2023 06:59:54 03/22/2003/22/2023 LIPID PANEL ,AMA (LDL- CALC) total cholesterol 169 mg/dL 0-199 Not Available [facility] (Lab) [address], [place], [address], 03/23/2023 06:59:55 03/22/2003/22/2023 LIPID PANEL ,AMA (LDL- CALC) triglyceride s 160 mg/dL 0.00-1 50.00 high NCEP Refer ence Value s for Trigl yceri luis fernando: Amy l: <150 mg/dL Borde rline High: 150 - 199 mg/dL High: 200 - 499 mg/dL Very High: >/= 500 mg/dL Not Available [facility] (Lab) [address], [place], [address], 03/23/2023 06:59:55 03/22/20 23 03/22/2023 LIPID PANEL ,AMA (LDL- CALC) HDL cholesterol 40 mg/dL >40 low Not Available [facility] (Lab) [address], [place], [address], 03/23/2023 06:59:55 03/22/2003/22/2023 LIPID PANEL ,AMA (LDL- [...] mg/dL , HDL <40 mg/dL Not Available [facility] (Lab) [address] [place], [address], 03/23/2023 06:59:55 03/22/2003/22/2023 LIPID PANEL ,AMA (LDL- CALC) non-HDL cholesterol 129 mg/dL no refere nce range A reaso nable goal for non-H DL nataliia stero l is one that is 30 mg/dL highe r than the LDL nataliia stero l goal. Not Available [facility] (Lab) [address] [place], [address], 03/23/2023 06:59:55 03/22/2003/22/2023 LIPID PANEL ,AMA (LDL- CALC) chol/HDL ratio 4.2 . 0.0-5. 0 On February 19, 2023, [facility] labor atori shira tinoco ed the [...] n. 2017Oct 29;137 (1):1 0-19. Not Available [facility] (Lab) [address], [place], [address], 03/23/2023 06:59:55 03/22/20 23 03/22/2023 CMP(C OMPRE HENSI VE METAB OLIC PANEL ) sodium 136 mmol/ L 133-[address] [facility] (Lab) [address], [place], [address], 03/23/2023 06:59:55 03/22/20 23 03/22/2023 CMP(C OMPRE HENSI VE METAB OLIC PANEL ) potassium 4.1 mmol/ L 3.5-5. [address] [facility] (Lab) [address], [place], [address], 03/23/2023 06:59:55 03/22/20 23 03/22/2023 CMP(C OMPRE HENSI VE METAB OLIC PANEL ) chloride 100 mmol/ L 98-[address] [facility] (Lab) [address], [place], [address], 03/23/2023 06:59:55 03/22/20 23 03/22/2023 CMP(C OMPRE HENSI VE METAB OLIC PANEL ) carbon dioxide 26 mmol/ L 21-[address] [facility] (Lab) [address], [place], [address], 03/23/2023 06:59:55 03/22/20 23 03/22/2023 CMP(C OMPRE HENSI VE METAB OLIC PANEL ) anion gap 10 mmol/ L 4-[address] [facility] (Lab) [address], [place], [address], 03/23/2023 06:59:55 03/22/20 23 03/22/2023 CMP(C OMPRE HENSI VE METAB OLIC PANEL ) blood urea nitrogen 10 mg/dL 7-25 Not Available [facility] (Lab) [address], [place], [address], 03/23/2023 06:59:55 03/22/20 23 03/22/2023 CMP(C OMPRE HENSI VE METAB OLIC PANEL ) creatinine 0.79 mg/dL 0.60-[address] [facility] (Lab) [address], [place], [address], 03/23/2023 06:59:55 03/22/20 23 03/22/2023 CMP(C OMPRE HENSI VE METAB OLIC PANEL ) egfrcr (CKD-epi 2020) >90 mL/mi n/1.7 3_m2 >=[address] [facility] (Lab) [address], [place], [address], 03/23/2023 06:59:55 03/22/20 23 03/22/2023 CMP(C OMPRE HENSI VE METAB OLIC PANEL ) calcium 9.0 mg/dL 8.3-[address] [facility] (Lab) [address], [place], [address], 03/23/2023 06:59:55 03/22/20 23 03/22/2023 CMP(C OMPRE HENSI VE METAB OLIC PANEL ) glucose 154 mg/dL 70-[address] [facility] (Lab) [address], [place], [address], 03/23/2023 06:59:55 03/22/20 23 03/22/2023 CMP(C OMPRE HENSI VE METAB OLIC PANEL ) protein, total 6.5 g/dL 6.4-8. [address] [facility] (Lab) [address], [place], [address], 03/23/2023 06:59:55 03/22/20 23 03/22/2023 CMP(C OMPRE HENSI VE METAB OLIC PANEL ) albumin 4.0 g/dL 3.5-5. [address] [facility] (Lab) [address], [place], [address], 03/23/2023 06:59:55 03/22/20 23 03/22/2023 CMP(C OMPRE HENSI VE METAB OLIC PANEL ) ALT 71 units /L 9-[address] [facility] (Lab) [address] [place], [address], 03/23/2023 06:59:55 03/22/20 23 03/22/2023 CMP(C OMPRE HENSI VE METAB OLIC PANEL ) alkaline phosphatase 87 units /L 34-[address] [facility] (Lab) [address] [place], [address], 03/23/2023 06:59:55 03/22/20 23 03/22/2023 CMP(C OMPRE HENSI VE METAB OLIC PANEL ) AST 76 units /L 13-[address] [facility] (Lab) [address] [place], [address], 03/23/2023 06:59:55 03/22/20 23 03/22/2023 CMP(C OMPRE HENSI VE METAB OLIC PANEL ) bilirubin, total 0.8 mg/dL 0.2-1. [address] [facility] (Lab) [address], [place], [address], 03/23/2023 06:59:55 03/22/20 23 03/22/2023 HEMOG LOBIN [...] >8.0% Actio n sugge sted Not Available [facility] (Lab) [address], [place], [address], 03/23/2023 06:59:56 03/22/2003/22/2023 TSH, REFLE X FREE T4 TSH 1.29 uIU/m L 0.30-[address] [facility] (Lab) [address], [place], [address], 03/23/2023 06:59:56 07/15/20 23 07/15/2023 CMP(C OMPRE HENSI VE METAB OLIC PANEL ) sodium 139 mmol/ L 133-[address] [facility] (Lab) [address], [place], [address], 07/16/2023 08:07:46 07/15/20 23 07/15/2023 CMP(C OMPRE HENSI VE METAB OLIC PANEL ) potassium 4.2 mmol/ L 3.5-5. [address] [facility] (Lab) [address], [place], [address], 07/16/2023 08:07:46 07/15/20 23 07/15/2023 CMP(C OMPRE HENSI VE METAB OLIC PANEL ) chloride 101 mmol/ L 98-[address] [facility] (Lab) [address], [place], [address], 07/16/2023 08:07:46 07/15/20 23 07/15/2023 CMP(C OMPRE HENSI VE METAB OLIC PANEL ) carbon dioxide 26 mmol/ L 21-[address] [facility] (Lab) [address], [place], [address], 07/16/2023 08:07:46 07/15/20 23 07/15/2023 CMP(C OMPRE HENSI VE METAB OLIC PANEL ) anion gap 12 mmol/ L 4-[address] [facility] (Lab) [address], [place], [address], 07/16/2023 08:07:46 07/15/20 23 07/15/2023 CMP(C OMPRE HENSI VE METAB OLIC PANEL ) blood urea nitrogen 9 mg/dL 7-25 Not Available [facility] (Lab) [address], [place], [address], 07/16/2023 08:07:46 07/15/20 23 07/15/2023 CMP(C OMPRE HENSI VE METAB OLIC PANEL ) creatinine 0.69 mg/dL 0.60-[address] [facility] (Lab) [address], [place], [address], 07/16/2023 08:07:46 07/15/20 23 07/15/2023 CMP(C OMPRE HENSI VE METAB OLIC PANEL ) egfrcr (CKD-epi 2020) >90 mL/mi n/1.7 3_m2 >=[address] [facility] (Lab) [address], [place], [address], 07/16/2023 08:07:46 07/15/20 23 07/15/2023 CMP(C OMPRE HENSI VE METAB OLIC PANEL ) calcium 9.0 mg/dL 8.3-[address] [facility] (Lab) [address], [place], [address], 07/16/2023 08:07:46 07/15/20 23 07/15/2023 CMP(C OMPRE HENSI VE METAB OLIC PANEL ) glucose 146 mg/dL 70-[address] [facility] (Lab) [address], [place], [address], 07/16/2023 08:07:46 07/15/20 23 07/15/2023 CMP(C OMPRE HENSI VE METAB OLIC PANEL ) protein, total 6.8 g/dL 6.4-8. [address] [facility] (Lab) [address], [place], [address], 07/16/2023 08:07:46 07/15/20 23 07/15/2023 CMP(C OMPRE HENSI VE METAB OLIC PANEL ) albumin 4.2 g/dL 3.5-5. [address] [facility] (Lab) [address], [place], [address], 07/16/2023 08:07:46 07/15/20 23 07/15/2023 CMP(C OMPRE HENSI VE METAB OLIC PANEL ) ALT 85 units /L 9-[address] [facility] (Lab) [address] [place], [address], 07/16/2023 08:07:46 07/15/20 23 07/15/2023 CMP(C OMPRE HENSI VE METAB OLIC PANEL ) alkaline phosphatase 95 units /L 34-[address] [facility] (Lab) [address], [place], [address], 07/16/2023 08:07:46 07/15/20 23 07/15/2023 CMP(C OMPRE HENSI VE METAB OLIC PANEL ) AST 73 units /L 13-[address] [facility] (Lab) [address], [place], [address], 07/16/2023 08:07:46 07/15/20 23 07/15/2023 CMP(C OMPRE HENSI VE METAB OLIC PANEL ) bilirubin, total 0.6 mg/dL 0.2-1. [address] [facility] (Lab) [address], [place], [address], 07/16/2023 08:07:46 01/21/20 24 01/21/2024 CBC W/DIF F WBC 4.6 10'3/ uL 3.5-[address] [facility] (Lab) [address], [place], [address], 01/22/2024 02:30:16 01/21/20 24 01/21/2024 CBC W/DIF F RBC 4.45 10'6/ uL (based on docume nted legal sex) 3.80-[address] [facility] (Lab) [address], [place], [address], 01/22/2024 02:30:16 01/21/20 24 01/21/2024 CBC W/DIF F HGB 12.6 g/dL (based on docume nted legal sex) 11.6-[address] [facility] (Lab) [address], [place], [address], 01/22/2024 02:30:16 01/21/20 24 01/21/2024 CBC W/DIF F HCT 38.6 % (based on docume nted legal sex) 34.0-[address] [facility] (Lab) [address] [place], [address], 01/22/2024 02:30:16 03/26/20 24 01/21/2024 CBC W/DIF F MCV 86.7 fL 80.0-[address] [facility] (Lab) [address], [place], [address], 01/22/2024 02:30:16 01/21/20 24 01/21/2024 CBC W/DIF F MCH 28.3 pg 27.0-[address] [facility] (Lab) [address], [place], [address], 01/22/2024 02:30:16 01/21/20 24 01/21/2024 CBC W/DIF F MCHC 32.6 g/dL 32.0-[address] [facility] (Lab) [address], [place], [address], 01/22/2024 02:30:16 01/21/20 24 01/21/2024 CBC W/DIF F RDW 14.0 % 11.0-[address] [facility] (Lab) [address], [place], [address], 01/22/2024 02:30:16 01/21/20 24 01/21/2024 CBC W/DIF F plt 242 10'3/ uL 150-[address] [facility] (Lab) [address], [place], [address], 01/22/2024 02:30:16 01/21/20 24 01/21/2024 CBC W/DIF F MPV 9.5 fL 8.8-[address] [facility] (Lab) [address], [place], [address], 01/22/2024 02:30:16 01/21/20 24 01/21/2024 CBC W/DIF F NRBC's 0.0 % 0.[address] [facility] (Lab) [address], [place], [address], 01/22/2024 02:30:16 01/21/20 24 01/21/2024 CBC W/DIF F absolute NRBCs 0.0 10'3/ uL 0.[address] [facility] (Lab) [address], [place], [address], 01/22/2024 02:30:16 01/21/20 24 01/21/2024 CBC W/DIF F neutrophils 54.0 % 34.0-[address] [facility] (Lab) [address], [place], [address], 01/22/2024 02:30:16 01/21/20 24 01/21/2024 CBC W/DIF F lymphocytes 30.0 % 15.0-[address] [facility] (Lab) [address], [place], [address], 01/22/2024 02:30:16 01/21/20 24 01/21/2024 CBC W/DIF F monocytes 7.9 % 1.0-[address] [facility] (Lab) [address], [place], [address], 01/22/2024 02:30:16 01/21/20 24 01/21/2024 CBC W/DIF F eosinophils 6.6 % 0.0-8. [address] [facility] (Lab) [address] [place], [address], 01/22/2024 02:30:16 01/21/20 24 01/21/2024 CBC W/DIF F basophils 1.1 % 0.0-2. [address] [facility] (Lab) [address] [place], [address], 01/22/2024 02:30:16 01/21/20 24 01/21/2024 CBC W/DIF F immature granulocytes 0.4 % no define d refere nce range Not Available [facility] (Lab) [address] [place], [address], 01/22/2024 02:30:16 01/21/20 24 01/21/2024 CBC W/DIF F absolute neutrophils 2.5 10'3/ uL 1.5-8. [address] [facility] (Lab) [address], [place], [address], 01/22/2024 02:30:16 01/21/20 24 01/21/2024 CBC W/DIF F absolute lymphocytes 1.4 10'3/ uL 1.0-4. [address] [facility] (Lab) [address], [place], [address], 01/22/2024 02:30:16 01/21/20 24 01/21/2024 CBC W/DIF F absolute monocytes 0.4 10'3/ uL 0.2-1. [address] [facility] (Lab) [address], [place], [address], 01/22/2024 02:30:16 01/21/20 24 01/21/2024 CBC W/DIF F absolute eosinophils 0.3 10'3/ uL 0.0-0. [address] [facility] (Lab) [address], [place], [address], 01/22/2024 02:30:16 01/21/20 24 01/21/2024 CBC W/DIF F absolute basophils 0.1 10'3/ uL 0.0-0. [address] [facility] (Lab) [address], [place], [address], 01/22/2024 02:30:16 01/21/20 24 01/21/2024 CBC W/DIF [...] resul ts are expec alissa. Not Available [facility] (Lab) [address], [place], [address], 01/22/2024 02:30:16 01/21/20 24 01/21/2024 LIPID PANEL ,AMA (LDL- CALC) total cholesterol 344 mg/dL 0-199 high Not Available [facility] (Lab) [address] [place], [address], 01/22/2024 02:30:17 01/21/20 24 01/21/2024 LIPID PANEL ,AMA (LDL- CALC) triglyceride s 323 mg/dL 0-150 high NCEP Refer ence Value s for Trigl yceri luis fernando: Amy l: <150 mg/dL Borde rline High: 150 - 199 mg/dL High: 200 - 499 mg/dL Very High: >/= 500 mg/dL Not Available [facility] (Lab) [address] [place], [address], 01/22/2024 02:30:17 01/21/20 24 01/21/2024 LIPID PANEL ,AMA (LDL- CALC) HDL cholesterol 48 mg/dL >40 Not Available [facility] (Lab) [address] [place], [address], 01/22/2024 02:30:17 01/21/20 24 01/21/2024 LIPID PANEL [...] mg/dL , HDL <40 mg/dL Not Available [facility] (Lab) [address] [place], [address], 01/22/2024 02:30:17 01/21/20 24 01/21/2024 LIPID PANEL ,AMA (LDL- CALC) non-HDL cholesterol 296 mg/dL no refere nce range A reaso nable goal for non-H DL nataliia stero l is one that is 30 mg/dL highe r than the LDL nataliia stero l goal. Not Available [facility] (Lab) [address], [place], [address], 01/22/2024 02:30:17 01/21/20 24 01/21/2024 LIPID PANEL ,AMA (LDL- CALC) chol/HDL ratio 7.2 . 0.0-5. 0 high On February 19, 2023, [facility] labor atori shira tinoco ed the [...] Bharati frausto, Jj Pruett, Bar Calabrese , [facility] amber cordon, Dennis Felton, Dennis thomas, [facility] , and Leroy Storey . 2013. [...] n. 2017Oct 29;137 (1):1 0-19. Not Available [facility] (Lab) [address], [place], [address], 01/22/2024 02:30:17 01/21/20 24 01/21/2024 CMP(C OMPRE HENSI VE METAB OLIC PANEL ) sodium 139 mmol/ L 133-[address] [facility] (Lab) [address], [place], [address], 01/22/2024 02:30:17 01/21/20 24 01/21/2024 CMP(C OMPRE HENSI VE METAB OLIC PANEL ) potassium 4.1 mmol/ L 3.5-5. [address] [facility] (Lab) [address], [place], [address], 01/22/2024 02:30:17 01/21/20 24 01/21/2024 CMP(C OMPRE HENSI VE METAB OLIC PANEL ) chloride 100 mmol/ L 98-[address] [facility] (Lab) [address] [place], [address], 01/22/2024 02:30:17 01/21/20 24 01/21/2024 CMP(C OMPRE HENSI VE METAB OLIC PANEL ) carbon dioxide 27 mmol/ L 21-[address] [facility] (Lab) [address] [place], [address], 01/22/2024 02:30:17 01/21/20 24 01/21/2024 CMP(C OMPRE HENSI VE METAB OLIC PANEL ) anion gap 12 mmol/ L 4-[address] [facility] (Lab) [address] [place], [address], 01/22/2024 02:30:17 01/21/20 24 01/21/2024 CMP(C OMPRE HENSI VE METAB OLIC PANEL ) blood urea nitrogen 8 mg/dL 7-25 Not Available [facility] (Lab) [address], [place], [address], 01/22/2024 02:30:17 01/21/20 24 01/21/2024 CMP(C OMPRE HENSI VE METAB OLIC PANEL ) creatinine 0.66 mg/dL 0.60-[address] [facility] (Lab) [address], [place], [address], 01/22/2024 02:30:17 01/21/20 24 01/21/2024 CMP(C OMPRE HENSI VE METAB OLIC PANEL ) egfrcr (CKD-epi 2020) >90 mL/mi n/1.7 3_m2 >=[address] [facility] (Lab) [address], [place], [address], 01/22/2024 02:30:17 01/21/20 24 01/21/2024 CMP(C OMPRE HENSI VE METAB OLIC PANEL ) calcium 9.5 mg/dL 8.3-[address] [facility] (Lab) [address], [place], [address], 01/22/2024 02:30:17 01/21/20 24 01/21/2024 CMP(C OMPRE HENSI VE METAB OLIC PANEL ) glucose 175 mg/dL 70-[address] [facility] (Lab) [address], [place], [address], 01/22/2024 02:30:17 01/21/20 24 01/21/2024 CMP(C OMPRE HENSI VE METAB OLIC PANEL ) protein, total 7.0 g/dL 6.4-8. [address] [facility] (Lab) [address], [place], [address], 01/22/2024 02:30:17 01/21/20 24 01/21/2024 CMP(C OMPRE HENSI VE METAB OLIC PANEL ) albumin 4.3 g/dL 3.5-5. [address] [facility] (Lab) [address], [place], [address], 01/22/2024 02:30:17 01/21/20 24 01/21/2024 CMP(C OMPRE HENSI VE METAB OLIC PANEL ) ALT 77 units /L 9-[address] [facility] (Lab) [address], [place], [address], 01/22/2024 02:30:17 01/21/20 24 01/21/2024 CMP(C OMPRE HENSI VE METAB OLIC PANEL ) alkaline phosphatase 68 units /L 34-[address] [facility] (Lab) [address], [place], [address], 01/22/2024 02:30:17 01/21/20 24 01/21/2024 CMP(C OMPRE HENSI VE METAB OLIC PANEL ) AST 79 units /L 13-[address] [facility] (Lab) [address], [place], [address], 01/22/2024 02:30:17 01/21/20 24 01/21/2024 CMP(C OMPRE HENSI VE METAB OLIC PANEL ) bilirubin, total 0.5 mg/dL 0.2-1. [address] [facility] (Lab) [address] [place], [address], 01/22/2024 02:30:17 01/21/20 24 01/21/2024 TSH TSH 2.36 uIU/m L 0.30-[address] [facility] (Lab) [address] [place], [address], 01/22/2024 02:30:18 01/21/20 24 01/21/2024 T4 FREE T4, free 0.99 NG/dL 0.60-1 .40 This assay is susce ptibl e to inter feren ce from high level s of bioti n which may false ly eleva te resul ts. Maria D jj late with clini miguelina findi ngs. Not Available [facility] (Lab) [address], [place], [address], 01/22/2024 02:30:18 01/21/20 24 01/21/2024 HEMOG LOBIN [...] >8.0% Actio n sugge sted Not Available [facility] (Lab) [address], [place], [address], 01/22/2024 02:30:19 01/21/20 24 01/21/2024 FREE T3 [...] LC/MS may be perfo rmed. Not Available [facility] (Lab) [address], [place], [address], 01/22/2024 02:30:19 01/21/20 24 01/21/2024 THYRO ID ANTIB DINA PANEL thyroglobuli n antibody <1.0 IU/mL <=3.9 Not Available [facility] (Lab) [address], [place], [address], 01/22/2024 02:30:19 01/21/20 24 01/21/2024 THYRO ID ANTIB DINA PANEL thyroperoxid ase antibodies 0.5 IU/mL 0.0-9. 0 This assay was perfo rmed using Beckm an Coult er reage nts and test kits. Value s obtai lane with other assay metho ds or kits canno t be used inter tinoco eaoctavia . Not Available [facility] (Lab) [address], [place], [address], 01/22/2024 02:30:19 09/30/20 24 09/30/2024 IMAGE GUIDE [...] Intra epith mamie frausto or Umm lai ([facility]) . Freddie sanchez by Kinga Devlin [...] as clini patricio gomez nted. Not Available [facility] (Lab) [address], [place], [address], 10/09/2024:13:51 09/29/20 21 MAMMO , scree radha, digit al, bilat eral No observ ation record ed. [facility] [address], [place], [address], 10/31/2021 09:59:55 Result Notes None recorded. Problems Name Problem SNOMED Code Status Onset Date Resolution Date Notes Provider Name and Address Organization Details Recorded Time Screenin g for malignan t neoplasm of cervix Completed 201109/05/2021 Pap Smear;Pra ctice ID: [id number] [facility] 20:04:33 Speciali zed medical examinat ion Completed 201309/05/2021 Gynecolog ical Examinati on;Record ed Elsewhere : No Locati on: [facility] So urce: EHR Chron ic: N Practic e ID: [id number] Bill able Time: 01:30:[address] [facility] 20:04:46 Adult health examinat ion Completed 201309/05/2021 ROUTINE MEDICAL EXAM;Ty rded Elsewhere : No Locati on: [facility] So urce: EHR Chron ic: N Practic e ID: [id number] Bill able Time: 01:30:[address] [facility] 20:04:25 Obesity [id number] Completed 201309/05/2021 Obesity;R ecorded Elsewhere : No Locati on: [facility] So urce: EHR Chron ic: N Practic e ID: 0001 Bill able Time: 01:30:00 PM [facility] 20:04:[address] Concept Completed 201609/05/2021 Encntr for supply chain assistant exam (general) (routine) w/o abn findings; Recorded Elsewhere : No Locati on: [facility] So urce: EHR Chron ic: N Practic e ID: 0001 Bill able Time: 11:30:00 AM Juliana Y[facility] 20:04:[address] Concept Completed 201609/05/2021 Encntr for general adult medical exam w/o abnormal findings; Recorded Elsewhere : No Locati on: [facility] So urce: EHR Chron ic: N Practic e ID: [id number] Bill able Time: 11:30:00 AM Juliana [facility] 20:04:38 Body mass index 30+ - obesity [id number] Completed 201709/05/2021 Body mass index (BMI) 36.0-36.9 , adult;Rec orded Elsewhere : No Locati on: [facility] So urce: EHR Chron ic: N Practic e ID: [id number] Bill able Time: 04:30:00 PM Juliana [facility] 20:04:[address] Concept Completed 201809/05/2021 Encntr for routine child health exam w/o abnormal findings; Recorded Elsewhere : No Locati on: [facility] So urce: EHR Chron ic: N Practic e ID: [id number] Bill able Time: 11:30:00 AM Juliana Y[facility] 20:04:41 Screenin g for malignan t neoplasm of rectum Completed 201809/05/2021 Encounter for screening for malignant neoplasm of rectum;Re corded Elsewhere : No Locati on: [facility] So urce: EHR Chron ic: N Practic e ID: [id number] Bill able Time: 11:30:00 AM Juliana Y[facility] 20:04:35 Problem Notes None recorded. Procedures Surgical History Date Name Laterality Status Provider Name and Address Organization Details Recorded Time 09/30/20 24 Date of Last Pap Smear completed Adelita Flores [facility] 09/30/2024 11:43:58 07/28/20 24 Date of Last Mammogram completed Adelita Flores [facility] 09/30/2024 11:45:44 03/24/20 19 completed Domingo Riggins [facility] 09/06/2021 12:18:53 Tonsillectomy completed Gloria Rogelio [facility] 08/15/2020 12:01:12 Imaging Results None recorded. [...] Prescrib ed Elsewher e: Yes [facility] By: merlin delacruzuntkristina DateTime : [...] Prescrib ed Elsewher e: Yes [facility] By: merlin breen DateTime : 05/17/20 [...] Prescrib ed Elsewher e: No Locat ion: [facility] M odify By: maranda breen DateTime : [...] ed Mary e: Yes Loca tion: [facility] M cierra By: amnegin breen [...] Updated DateTime 03/22/2023 167.64 cm 42.7 kg/m2 522722.54 g 132/90 mm[Hg] Lashonda Ramos [facility] 03/22/2023 12:06:48 Date Recorded Body height Body mass index (BMI) Body weight Systolic And Diastolic Provider Name and Address Organization Details Last Updated DateTime 08/15/2020 167.64 cm 37.3 kg/m2 359378.84 g 138/86 mm[Hg] Gloria Mercado [facility] 08/15/2020 12:07:09 Date Recorded Systolic And Diastolic Provider Name and Address Organization Details Last Updated DateTime 09/06/2021 132/80 mm[Hg] Anne Quintero, [facility] [address], [place], [address], [facility] 09/06/2021 12:46:17 Date Recorded Body weight Body mass index (BMI) Body height Provider Name and Address Organization Details Last Updated DateTime 09/06/2021 563216.72 g 39.7 kg/m2 167.64 cm Domingo Riggins [facility] 09/06/2021 12:18:25 Date Recorded Body height Body mass index (BMI) Body weight Systolic And Diastolic Provider Name and Address Organization Details Last Updated DateTime 09/30/2024 167.64 cm 39.4 kg/m2 400097.54 g 138/83 mm[Hg] Adelitamarysol Flores [facility] 09/30/2024 11:39:36 Social History Question Answer Notes LastModified by Organizat ion Details LastModified Time Tobacco Smoking Status Never Smoker Lashonda Huertadobson, [facility] 03/22/2023 12:08:07 Do You Have An [...] Or The Highest Degree You Have Received? [id number] Information not available 09/06/2021 Are There Any [...] Functional Status Question Answer Note LastModified by [employer] Details LastModified Time Do you use [...] anxious, or unable to sleep at night)? [id number] Information not available 09/05/2021 Family History Relationship Description Onset Age of this Age Resolved Age Notes LastModified by Organization Details LastModified Time Mother Carcinoma in situ of colon [email or web address] Not available 2019 12:01:01 Medical History Condition Response Anxiety Disorder Y Other Y High Cholesterol Y Depression/ depression Y Acid Reflux (GERD) Y Headaches Y [...] ICD10 Code Diagnosis IMO Codes Diagnosis Note [id number] Anne Quintero [facility] [address] [address] 08/15/2020 11:48:08 08/15/2020 13:49:58 Gynecologic examination 65697077 Z01.419 Suggested Calcium with Vitamin D 1200-1500m g daily. Patient advised to get an annual flu shot in the fall and she could obtain at [facility] or [facility] clinic. Also to obtain TDap vaccinatio [...] concerns this year. Adult heal th examination 975992646 Z00.00 Needs Labs sent to PCP when completed. [id number] Anne Quintero [facility] [address] [address] 09/06/2021 11:50:14 09/06/2021 13:06:49 Gynecologic examination 72612543 Z01.419 Suggested Calcium with Vitamin D 1200-1500m g daily. Patient advised to get an annual flu shot in the fall and she could obtain at [facility] or [facility] care clinic. Also to obtain TDap vaccinatio [...] or concerns this year. Screening mammography 24 886074 Z12.31 [id number] Anne Quintero [facility] [address] [address] 03/22/2023 11:54:22 03/22/2023 12:29:13 Gynecologic examination 20328025 Z01.419 Z11.51 Suggested Calcium with Vitamin D 1200-1500m g daily. Patient advised to get an annual flu shot in the fall and she could obtain at [facility] or [facility] clinic. Also to obtain TDap vaccinatio [...] fax to PCPMammo ordered Screening mammography 24 083921 Z12.31 Adult heal th examination 275119982 Z00.00 Needs Labs sent to PCP when completed. [id number] RICHY Garcia [place] [address] [address] 09/30/2024 11:19:58 09/30/2024 13:31:25 Gynecologic examination 00447006 Z01.419 WWEBC - declinedPa p - updatedSTI [...] Zepeda Member ID Guarantor Name 09/30/2024 1 [facility] PRIOR TO 04/27/2021 (MEDICAID REPLACEMENT - HMO) Rachelle Hough [id number] Rachelle Hough 10/04/2024 1 [facility] ON OR AFTER 04/27/21 (MEDICAID REPLACEMENT - HMO) Rachelle Hough [id number] Rachelle Hough Notes Date Note Type Note [...] 38. Anne Quintero [facility], [place], [address], [facility] 08/15/2020 12:54:23 1 text/html Annual GYNReported [...] colonoscopy screening. RICHY Armenta- [address], [place], [address], [facility] 09/06/2021 12:47:40 3 text/html Annual GYNReported [...] schedule mammogram. RICHY Armenta- [address], [place], [address], [facility] 03/22/2023 12:27:56 4 text/html Annual GYNReported [...] - normal RICHY Garcia [address], [place], [address], [facility] 09/30/2024 13:28:59 OBGyn Episode No OBEpisode recorded.
[2025-08-20 12:28] LABS: Add Urine Microscopic? NO; Appearance Urine Clear (Clear); Glucose Urine UA Negative (Negative); Leukocyte Esterase Ur Negative LEU/UL (Negative); Nitrate Urine Negative (Negative); Specific Grav Ur 1.012 (1.001-1.035)
== END 2025-08-20 11:27 | disposition home or self-care (01) ==
PROVIDERS: PCP Nurse Practitioner Family; Visit Provider Nurse Practitioner Family
DX: R31.9 Hematuria, unspecified (principal); Z87.442 Personal history of urinary calculi
CPT/HCPCS: 74176; 81003